=== PATIENT | male | born 1960 | race Caucasian/White ===

== ENCOUNTER 2021-08-17 16:29 | Inpatient (IN) | payer OTHER ==
--- NOTE | 2021-08-17 17:10 | ED ---
General Adult HPI - General Chief complaint: Nausea/Vomiting/Diarrhea Stated complaint: abd pain Time Seen by Provider: 08/17/21 17:08 Source: patient, EMS Mode of arrival: EMS Limitations: no limitations - History of Present Illness Initial comments: Patient presents to the ED by ambulance for evaluation with his at bedside. Patient states that he has had superpubic/left lower quadrant abdominal pain since this morning. Patient states that his pain was increasing in severity until the ambulance arrived, and he states that his pain has subsided since then. Patient denies receiving any medications by EMS. Patient also states that he has felt nauseated today, and he states that he vomited once prior to coming to the ED today. Patient also states that he feels "bloated". Patient denies trauma or injury, fever or chills, headache, focal neuro deficit, chest pain or pressure, dyspnea, cough or cold symptoms, dizziness, upper abdominal pain, back or flank pain, diarrhea or constipation (patient states that he had a normal BM earlier today), bloody or melanotic stool, dysuria/hematuria/urinary frequency/urinary symptoms, or any other symptoms or complaints. Patient states that his pain is currently 3/10 in severity, and he declines pain medication at this time. - Related Data Allergies Allergy/AdvReac Type Severity Reaction Status Date / Time niacin Allergy Anaphylaxis Verified 08/17/21 18:05 codeine AdvReac Abdominal Verified 08/17/21 18:05 Pain Review of Systems ROS Statement: Those systems with pertinent positive or pertinent negative responses have been documented in the HPI. ROS Other: All systems not noted in ROS Statement are negative. Past Medical History Past Medical History: Cancer Additional Past Medical History / Comment(s): HTN, Sleep apnea, CLL History of Any Multi-Drug Resistant Organisms: None Reported Past Surgical History: Back Surgery Additional Past Surgical History / Comment(s): 2013 herniated disc repair. Past Psychological History: PTSD Smoking Status: Never smoker Past Alcohol Use History: None Reported Past Drug Use History: None Reported General Exam Limitations: no limitations General appearance: alert, in no apparent distress Head exam: Present: atraumatic, normocephalic Eye exam: Present: normal appearance, EOMI ENT exam: Present: mucous membranes moist Neck exam: Present: other (Trachea is in midline) Respiratory exam: Present: normal lung sounds bilaterally. Absent: respiratory distress, wheezes, rales, rhonchi, stridor Cardiovascular Exam: Present: regular rate, normal rhythm, normal heart sounds, other (Normal radial pulses bilaterally) GI/Abdominal exam: Present: soft, hypoactive bowel sounds, other (Mild left lower quadrant abdominal tenderness; mildly distended abdomen). Absent: guarding, rebound Extremities exam: Absent: pedal edema Back exam: Absent: CVA tenderness (R), CVA tenderness (L) Neurological exam: Present: alert, oriented X3. Absent: motor sensory deficit Psychiatric exam: Present: normal affect, normal mood Skin exam: Present: warm, dry, intact, normal color Course Vital Signs 08/17/21 08/17/21 16:30 19:48 Temperature 98.5 F Pulse Rate 77 85 Respiratory 18 18 Rate Blood Pressure 144/78 163/87 O2 Sat by Pulse 98 97 Oximetry - Reevaluation(s) Reevaluation #1: 08/17/21 20:12 Case, H&P, test results and ED management thus far were discussed with Dr. Song. He accepts hospital admission. He agrees with general surgery consultation. He has no further recommendations at this time. 08/17/21 20:19 Patient denies development of any new symptoms while in the ED. Patient has not had any vomiting while in the ED. Patient's abdomen remains soft and nonsurgical on examination. Patient and are aware the patient's test results, and they both agree with hospital admission at this time. EKG Findings - EKG Comments: EKG Findings:: Normal sinus rhythm, ventricular rate of 68 bpm, no ectopy, left anterior fascicular block, normal FL and QRS intervals, normal QT interval, anteroseptal ST and T-wave abnormality, normal axis, no old EKG is available for comparison Medical Decision Making - Medical Decision Making Given the patient's CT finding of ileus versus partial mechanical obstruction, will admit the patient to the hospital for observation and further evaluation. Patient has a soft and nonsurgical abdominal exam in the ED. Patient has a leukocytosis of 20.6. Patient reports having CLL, and I am uncertain if his leukocytosis is from an acute etiology. Patient is afebrile. Dr. Song has accepted hospital admission. A general surgery consultation order has been placed. - Lab Data Result diagrams: 08/17/21 18:18 08/17/21 18:18 Lab Results 08/17/21 08/17/21 08/17/21 Range/Units 18:18 18:18 18:18 WBC 20.6 H (3.8-10.6) k/uL RBC 5.12 (4.30-5.90) m/uL Hgb 16.6 (13.0-17.5) gm/dL Hct 48.9 (39.0-53.0) % MCV 95.5 (80.0-100.0) fL MCH 32.3 (25.0-35.0) pg MCHC 33.8 (31.0-37.0) g/dL RDW 13.8 (11.5-15.5) % Plt Count 310 (150-450) k/uL MPV 7.5 Neutrophils % 73 % Lymphocytes % 24 % Monocytes % 2 % Eosinophils % 0 % Basophils % 0 % Neutrophils # 15.0 H (1.3-7.7) k/uL Lymphocytes # 4.9 H (1.0-4.8) k/uL Monocytes # 0.4 (0-1.0) k/uL Eosinophils # 0.1 (0-0.7) k/uL Basophils # 0.0 (0-0.2) k/uL Sodium 139 (137-145) mmol/L Potassium 4.8 (3.5-5.1) mmol/L Chloride 106 (98-107) mmol/L Carbon Dioxide 21 L (22-30) mmol/L Anion Gap 12 mmol/L BUN 21 H (9-20) mg/dL Creatinine 1.02 (0.66-1.25) mg/dL Est GFR (CKD-EPI)AfAm >90 (>60 ml/min/1.73 sqM) Est GFR (CKD-EPI)NonAf 79 (>60 ml/min/1.73 sqM) Glucose 121 H (74-99) mg/dL Plasma Lactic Acid Sree 1.6 (0.7-2.0) mmol/L Calcium 9.6 (8.4-10.2) mg/dL Total Bilirubin 0.9 (0.2-1.3) mg/dL AST 40 (17-59) U/L ALT 46 (4-49) U/L Alkaline Phosphatase 91 (38-126) U/L Troponin I (0.000-0.034) ng/mL Total Protein 7.5 (6.3-8.2) g/dL Albumin 4.6 (3.5-5.0) g/dL Lipase 215 (23-300) U/L Urine Color Urine Appearance (Clear) Urine pH (5.0-8.0) Ur Specific [place] (1.001-1.035) Urine Protein (Negative) Urine Glucose (UA) (Negative) Urine Ketones (Negative) Urine Blood (Negative) Urine Nitrite (Negative) Urine Bilirubin (Negative) Urine Urobilinogen (<2.0) mg/dL Ur Leukocyte Esterase (Negative) 08/17/21 08/17/21 Range/Units 18:18 19:47 WBC (3.8-10.6) k/uL RBC (4.30-5.90) m/uL Hgb (13.0-17.5) gm/dL Hct (39.0-53.0) % MCV (80.0-100.0) fL MCH (25.0-35.0) pg MCHC (31.0-37.0) g/dL RDW (11.5-15.5) % Plt Count (150-450) k/uL MPV Neutrophils % % Lymphocytes % % Monocytes % % Eosinophils % % Basophils % % Neutrophils # (1.3-7.7) k/uL Lymphocytes # (1.0-4.8) k/uL Monocytes # (0-1.0) k/uL Eosinophils # (0-0.7) k/uL Basophils # (0-0.2) k/uL Sodium (137-145) mmol/L Potassium (3.5-5.1) mmol/L Chloride (98-107) mmol/L Carbon Dioxide (22-30) mmol/L Anion Gap mmol/L BUN (9-20) mg/dL Creatinine (0.66-1.25) mg/dL Est GFR (CKD-EPI)AfAm (>60 ml/min/1.73 sqM) Est GFR (CKD-EPI)NonAf (>60 ml/min/1.73 sqM) Glucose (74-99) mg/dL Plasma Lactic Acid Sree (0.7-2.0) mmol/L Calcium (8.4-10.2) mg/dL Total Bilirubin (0.2-1.3) mg/dL AST (17-59) U/L ALT (4-49) U/L Alkaline Phosphatase (38-126) U/L Troponin I <0.012 (0.000-0.034) ng/mL Total Protein (6.3-8.2) g/dL Albumin (3.5-5.0) g/dL Lipase (23-300) U/L Urine Color Yellow Urine Appearance Clear (Clear) Urine pH 6.5 (5.0-8.0) Ur Specific [place] 1.030 (1.001-1.035) Urine Protein Trace H (Negative) Urine Glucose (UA) Negative (Negative) Urine Ketones Negative (Negative) Urine Blood Negative (Negative) Urine Nitrite Negative (Negative) Urine Bilirubin Negative (Negative) Urine Urobilinogen <2.0 (<2.0) mg/dL Ur Leukocyte Esterase Negative (Negative) - Radiology Data CT abdomen/pelvis with IV contrast: Dilated small bowel suggestive of ileus or partial mechanical obstruction. No free air. Disposition Clinical Impression: Abdominal pain, Nausea and vomiting Narrative: Small bowel obstruction vs. ileus Disposition: ADMITTED IP TO THIS HOSP Condition: Stable Is patient prescribed a controlled substance at d/c from ED?: No Referrals: [facility],Clinic [Primary Care Provider] - 1-2 days Time of Disposition: 20:13
[2021-08-17] MEDS ORDERED: ONDANSETRON 4 MG/2 ML VIAL IVP STA (17:17)
[2021-08-17] MEDS ORDERED: SODIUM CHLORIDE 0.9% 1,000 ML IV STA (17:17)
[2021-08-17 18:30] LABS: Basophils % (A) 0 %; Eosinophils # (A) 0.1 k/uL (0-0.7); Eosinophils % (A) 0 %; HCT 48.9 % (39.0-53.0); HGB 16.6 gm/dL (13.0-17.5); Lymphocytes # (A) 4.9 k/uL (1.0-4.8); Lymphocytes % (A) 24 %; MCH 32.3 pg (25.0-35.0); MCHC 33.8 g/dL (31.0-37.0); MCV 95.5 fL (80.0-100.0); Mean Platelet Volume 7.5; Monocytes # (A) 0.4 k/uL (0-1.0); Monocytes % (A) 2 %; Neutrophils % (A) 73 %; Platelet Count 310 k/uL (150-450); RBC 5.12 m/uL (4.30-5.90); RDW 13.8 % (11.5-15.5); WBC 20.6 k/uL (3.8-10.6)
[2021-08-17 18:41] LABS: ALT 46 U/L (4-49); AST 40 U/L (17-59); African American GFR (CKD) >90 (>60 ml/min/1.73 sqM); Albumin 4.6 g/dL (3.5-5.0); Alkaline Phosphatase 91 U/L (38-126); Anion Gap 12 mmol/L; Blood Urea Nitrogen 21 mg/dL (9-20); Calcium 9.6 mg/dL (8.4-10.2); Carbon Dioxide 21 mmol/L (22-30); Chloride 106 mmol/L (98-107); Glucose 121 mg/dL (74-99); Lipase 215 U/L (23-300); Non-African American GFR(CKD) 79 (>60 ml/min/1.73 sqM); Sodium 139 mmol/L (137-145); Total Bilirubin 0.9 mg/dL (0.2-1.3); Total Protein 7.5 g/dL (6.3-8.2)
[2021-08-17 18:47] LABS: Potassium 4.8 mmol/L (3.5-5.1)
[2021-08-17 19:56] LABS: Appearance,Urine Clear (Clear); Bilirubin,Urine Negative (Negative); Blood,Urine Negative (Negative); Color,Urine Yellow; Glucose,Urine (UA) Negative (Negative); Ketones,Urine Negative (Negative); Leukocyte Esterase,Urine Negative (Negative); Nitrite,Urine Negative (Negative); PH, Urine 6.5 (5.0-8.0); Protein,Urine Trace (Negative); Urobilinogen,Urine <2.0 mg/dL (<2.0)
--- NOTE | 2021-08-17 19:56 | CT ---
EXAMINATION TYPE: CT abdomen pelvis w con DATE OF EXAM: 08/17/2021 COMPARISON: None HISTORY: abdominal pain, vomiting CT DLP: 1914.8 mGycm Automated exposure control for dose reduction was used. CONTRAST: Performed with IV Contrast, patient injected with 100 mL of Isovue 300. Images obtained from the diaphragm to the floor the pelvis with IV contrast. There is mild subsegmental atelectasis at the posterior lung bases. Heart size is normal. There is no pericardial effusion. Liver spleen stomach pancreas, gallbladder appear intact. The bile duct are no t dilated. There is no adrenal mass. Kidneys show satisfactory contrast opacification. There is no hydronephrosi s. There is 1 cm cortical cyst anterior left kidney. Ureters are not dilated. There is no retroperito simona adenopathy. Bladder distends smoothly. There is no inguinal hernia. There is no free fluid in th e pelvis. There are multiple mildly dilated loops of fluid-filled small bowel in the mid abdomen. Distal small bowel is not dilated. Transition point not seen. There are a few sigmoid diverticula. There is no div erticulitis. Small bowel dilated up to 3.7 cm. There is no mesenteric edema. There is no ascites or free air. The lumbar vertebrae have normal alignment. There is no compression fracture. Posterior elements are intact. Bony pelvis is intact. Hip joints are intact. IMPRESSION: Dilated small bowel suggestive of ileus or partial mechanical obstruction. No free air.
[2021-08-17] MEDS ORDERED: MORPHINE SULFATE 4 MG/ML SYRINGE IV PRN (20:15)
[2021-08-17] MEDS ORDERED: NALOXONE 0.4 MG/ML 1 ML VIAL IV PRN (20:15)
[2021-08-17] MEDS ORDERED: ONDANSETRON 4 MG/2 ML VIAL IVP PRN (20:15)
[2021-08-17] MEDS: SODIUM CHLORIDE 0.9% 1,000 ML IV SCH (21:08)
--- NOTE | 2021-08-18 01:08 | P.HPIM ---
History of Present Illness H&P Date: 08/17/21 Chief Complaint: abd pain 60 year old male with hypertension , DM , CLL patient comes in due to sudden worsening in his subacute abd pain , that was going off / on mild discomfort over past couple weeks, denies any associated GI bleeding, urinary changes, hematuria , fever, chills, nausea or vomiting, however, today suddenly felt suprapubic pain that was getting worse, for which he notified EMS, upon their arrival he had his only vomiting episode. he denies any abd surgeries inthe past, denies any history of bowel obstructions, he does not take any opiates at home, he had anormal bowel movement today. patient gets regular colonoscopies, due to history of polyps. blood work in the ED showed elevated white count, otherwise unremarkable . CT abd showed ileus vs partial mechanical bowel obstruction admitted for further evaluation by general surgery Review of Systems Pertinent positives as noted in HPI. All other systems were reviewed and are negative Past Medical History Past Medical History: Cancer Additional Past Medical History / Comment(s): HTN, Sleep apnea, CLL History of Any Multi-Drug Resistant Organisms: None Reported Past Surgical History: Back Surgery Additional Past Surgical History / Comment(s): 2012 herniated disc repair. Past Psychological History: Panic Disorder, PTSD Smoking Status: Never smoker Past Alcohol Use History: None Reported Past Drug Use History: None Reported - Past Family History familyi Family Medical History: No Reported History Medications and Allergies Home Medications Medication Instructions Recorded Confirmed Type Ascorbic Acid [Vitamin C] 500 mg PO DAILY 08/17/21 08/17/21 History Aspirin EC [Ecotrin Low Dose] 81 mg PO DAILY 08/17/21 08/17/21 History Atorvastatin [Lipitor] 20 mg PO HS 08/17/21 08/17/21 History Cetirizine HCl 10 mg PO DAILY 08/17/21 08/17/21 History Cholecalciferol [Vitamin D3 (25 50 mcg PO DAILY 08/17/21 08/17/21 History Mcg = 1000 Iu)] Cyclobenzaprine [Flexeril] 10 mg PO DAILY PRN 08/17/21 08/17/21 History FLUoxetine HCL [PROzac] 20 mg PO DAILY 08/17/21 08/17/21 History Gabapentin [Neurontin] 400 mg PO QID PRN 08/17/21 08/17/21 History Levothyroxine Sodium [Synthroid] 150 mcg PO DAILY 08/17/21 08/17/21 History Losartan [Cozaar] 50 mg PO DAILY 08/17/21 08/17/21 History Multivitamins, Thera [Multivitamin 1 tab PO DAILY 08/17/21 08/17/21 History (formulary)] Naproxen 500 mg PO BID PRN 08/17/21 08/17/21 History Omeprazole 20 mg PO DAILY 08/17/21 08/17/21 History Terazosin [Hytrin] 4 mg PO HS 08/17/21 08/17/21 History Vardenafil HCl [Levitra] 20 mg PO DAILY PRN 08/17/21 08/17/21 History Vitamin B Complex 1 cap PO DAILY 08/17/21 08/17/21 History Zinc 50 mg PO DAILY 08/17/21 08/17/21 History diazePAM [Valium] 5 mg PO BID PRN 08/17/21 08/17/21 History Allergies Allergy/AdvReac Type Severity Reaction Status Date / Time niacin Allergy Anaphylaxis Verified 08/17/21 21:06 codeine AdvReac Abdominal Verified 08/17/21 21:06 Pain Physical Exam Vitals: Vital Signs Temp Pulse Pulse Resp BP BP Pulse Ox 08/17/21 22:19 98.2 F 74 16 170/89 96 08/17/21 21:50 82 16 161/81 98 08/17/21 19:48 85 18 163/87 97 08/17/21 16:30 98.5 F 77 18 144/78 98 Intake and Output 08/17/21 08/17/21 08/18/21 14:59 22:59 06:59 Other: Voiding Method Toilet Weight 120.202 kg Constitutional: No acute distress, conversant, pleasant Eyes: Anicteric sclerae, moist conjunctiva, Pupils equal round reactive to light ENMT: NC/AT Oropharynx clear, no erythema, or exudates Neck: Supple, FROM, no masses, or JVD No carotid bruits No thyromegaly Lungs: Clear to auscultation Clear to percussion Normal respiratory effort, no accessory muscle use Cardiovascular: Heart regular in rate and rhythm, No murmurs, gallops, or rubs No peripheral edema Abdominal: Soft Nontender, no guarding, rebound or rigidity Abdomen moving with respiration Normoactive bowel sounds No hepatomegaly, No splenomegaly No palpable mass No abdominal wall hernia noted Skin: Normal temperature, tone, texture, turgor No induration No subcutaneous nodules No rash, lesions No ulcers Extremities: No digital cyanosis No clubbing Pedal pulses intact and symmetrical Radial pulses intact and symmetrical No calf tenderness Psychiatric: Alert and oriented to person, place and time Appropriate affect fair judgement Neuro Muscles Strength 5/5 in all 4 extremities Sensation to light touch grossly present throughout Cranial nerves II-XII grossly intact No focal sensory deficits Lymphatics: no palpable cervical or supraclavicular , or inguinal lymph nodes Results CBC & Chem 7: 08/17/21 18:18 08/17/21 18:18 Labs: Abnormal Lab Results - Last 24 Hours (Table) 08/17/21 08/17/21 08/17/21 Range/Units 18:18 18:18 19:47 WBC 20.6 H (3.8-10.6) k/uL Neutrophils # 15.0 H (1.3-7.7) k/uL Lymphocytes # 4.9 H (1.0-4.8) k/uL Carbon Dioxide 21 L (22-30) mmol/L BUN 21 H (9-20) mg/dL Glucose 121 H (74-99) mg/dL Urine Protein Trace H (Negative) Thrombosis Risk Factor Assmnt - Choose All That Apply Each Factor Represents 1 point: Obesity (BMI >25) Other Risk Factors: Yes Each Risk Factor Represents 2 Points: Age 61-74 years Other congenital or acquired thrombophilia - If yes, enter type in comment: No Thrombosis Risk Factor Assessment Total Risk Factor Score: 3 Thrombosis Risk Factor Assessment Level: Moderate Risk Assessment and Plan Assessment: ileus , rule out bowel obstruction NPO monitor vital signs IVF hydration with normal saline general surgery consultation serial abd exam patient due to routine Cscope this year due to history of polyps chronic conditions hypertension hyperlipidemia CLL resume home meds full code DVT PPX heparin sc tid anticipated length of stay < 2 midnights
[2021-08-18] MEDS: LEVOTHYROXINE 75 MCG TAB PO SCH (05:23)
[2021-08-18] MEDS: SODIUM CHLORIDE 0.9% 1,000 ML IV SCH ×3 (05:23→22:58)
[2021-08-18] MEDS: HEPARIN SODIUM,PORCINE/PF 5,000 UNIT/0.5 ML SYRINGE SQ SCH ×3 (08:24→20:02)
[2021-08-18] MEDS: ASPIRIN 81 MG PO SCH (08:24)
[2021-08-18] MEDS: PANTOPRAZOLE 40 MG TABLET PO SCH (08:24)
[2021-08-18] MEDS: LOSARTAN 50 MG TAB PO SCH (08:25)
[2021-08-18] MEDS: FLUoxetine HCL 20 MG CAP PO SCH (08:25)
[2021-08-18 09:07] LABS: HCT 44.5 % (39.6-50.0); HGB 14.9 g/dL (13.0-17.0); MCH 31.2 pg (27.0-32.0); MCHC 33.5 g/dL (32.0-37.0); MCV 93.1 fL (80.0-97.0); Mean Platelet Volume 9.7 fL (9.5-12.2); NRBC Per 100 WBC 0 /100 WBCS (0.0-0.0); Platelet Count 288 X 10*3/uL (140-440); RBC 4.78 X 10*6/uL (4.40-5.60); RDW 13.5 % (11.5-14.5); WBC 21.53 X 10*3/uL (4.50-10.00)
[2021-08-18 09:18] LABS: African American GFR (CKD) 85.4 (60.0-200.0); Albumin 4.1 g/dL (3.8-4.9); Albumin/Globulin Ratio 2.14 (1.60-3.17); Anion Gap 11.9 mmol/L (10.00-18.00); BUN/Creat Ratio 12.5 Ratio (12.00-20.00); Blood Urea Nitrogen 13.5 mg/dL (9.0-27.0); Carbon Dioxide 22.5 mmol/L (20.0-27.5); Globulin 1.9 g/dL (1.6-3.3); Non-African American GFR(CKD) 73.7 (60.0-200.0); Potassium 4.6 mmol/L (3.5-5.5); Total Bilirubin 0.5 mg/dL (0.30-1.20)
[2021-08-18 09:40] LABS: Basophils # (A) 0.06 X 10*3/uL (0.00-0.10); Basophils % (A) 0.3 %; Eosinophils # (A) 0.04 X 10*3/uL (0.04-0.35); Eosinophils % (A) 0.2 %; Immature Grans, Automated 0.4 %; Lymphocytes # (A) 8.46 X 10*3/uL (0.90-5.00); Lymphocytes % (A) 39.3 %; Monocytes # (A) 1.44 X 10*3/uL (0.20-1.00); Monocytes % (A) 6.7 %; Neutrophils # (A) 11.45 X 10*3/uL (1.80-7.70); Neutrophils % (A) 53.1 %; RBC Morphology NORMAL
--- NOTE | 2021-08-18 11:51 | P.GSCN ---
History of Present Illness Consult date: 08/18/21 Reason for Consult: Abdominal pain, bloating, nausea and emesis, small bowel obstruction versus ileus. History of present illness: Patient is a 60-year-old gentleman brought to [facility] emergency department by EMS 08/17/2021 with chief complaints of an abrupt, less than 24- hour history of diffuse abdominal pain, bloating, and nausea with emesis that afternoon. He describes having had a normal to slightly loose bowel movement that morning. He hasn't had similar symptoms in the past. No history of abdominal surgery, he gets routine colonoscopies, most recently about 3 years ago that always seemed to yield some manner of colon polyps. He is due for a follow-up later this year. No known personal history of inflammatory bowel disease. He does have history of chronic lymphocytic leukemia and has a white blood cell count but tends to run around 14,000. He has not been maintained on any manner of treatment for blood dyscrasia, he follows with the hematology specialist field engineer for monitoring routinely. Known personal history of diabetes mellitus, he's not maintained on any manner of blood thinners. He denies symptoms of fever, chills, chest pain, shortness of breath, or orthostatic symptoms. Computed tomography scan of the abdomen and pelvis was obtained in the ER showing mild more or less uniform dilation of the small bowel without wall thickening or pneumatosis. There is some stool and air present throughout the colon. There is perfusion seen at the mesentery, no evidence of ventral or inguinal hernia, he may have a cord lipoma present on the right. Lower lung sandoval appear to be clear with the exception of some mild subsegmental atelectasis. Gallbladder is mildly distended without inflammatory change or radiopaque stone burden and and pancreas has a normal appearance. Urinalysis was negative for UTI. Laboratory studies showed a somewhat dramatic leukocytosis over 20,000 with a moderate left shift. Overnight his symptoms of abdominal pain bloating and nausea have moderately improved. He admits to flatus today and has had multiple loose bowel movements, starting to feel hungry. Review of Systems All systems: negative - Constitutional Reports as per HPI Past Medical History Past Medical History: Cancer Additional Past Medical History / Comment(s): HTN, Sleep apnea, CLL History of Any Multi-Drug Resistant Organisms: None Reported Past Surgical History: Back Surgery Additional Past Surgical History / Comment(s): 2012 herniated disc repair. Past Psychological History: Panic Disorder, PTSD Smoking Status: Never smoker Past Alcohol Use History: None Reported Past Drug Use History: None Reported - Past Family History familyi Family Medical History: No Reported History Medications and Allergies Home Medications Medication Instructions Recorded Confirmed Type Ascorbic Acid [Vitamin C] 500 mg PO DAILY 08/17/21 08/17/21 History Aspirin EC [Ecotrin Low Dose] 81 mg PO DAILY 08/17/21 08/17/21 History Atorvastatin [Lipitor] 20 mg PO HS 08/17/21 08/17/21 History Cetirizine HCl 10 mg PO DAILY 08/17/21 08/17/21 History Cholecalciferol [Vitamin D3 (25 50 mcg PO DAILY 08/17/21 08/17/21 History Mcg = 1000 Iu)] Cyclobenzaprine [Flexeril] 10 mg PO DAILY PRN 08/17/21 08/17/21 History FLUoxetine HCL [PROzac] 20 mg PO DAILY 08/17/21 08/17/21 History Gabapentin [Neurontin] 400 mg PO QID PRN 08/17/21 08/17/21 History Levothyroxine Sodium [Synthroid] 150 mcg PO DAILY 08/17/21 08/17/21 History Losartan [Cozaar] 50 mg PO DAILY 08/17/21 08/17/21 History Multivitamins, Thera [Multivitamin 1 tab PO DAILY 08/17/21 08/17/21 History (formulary)] Naproxen 500 mg PO BID PRN 08/17/21 08/17/21 History Omeprazole 20 mg PO DAILY 08/17/21 08/17/21 History Terazosin [Hytrin] 4 mg PO HS 08/17/21 08/17/21 History Vardenafil HCl [Levitra] 20 mg PO DAILY PRN 08/17/21 08/17/21 History Vitamin B Complex 1 cap PO DAILY 08/17/21 08/17/21 History Zinc 50 mg PO DAILY 08/17/21 08/17/21 History diazePAM [Valium] 5 mg PO BID PRN 08/17/21 08/17/21 History Allergies Allergy/AdvReac Type Severity Reaction Status Date / Time niacin Allergy Anaphylaxis Verified 08/17/21 21:06 codeine AdvReac Abdominal Verified 08/17/21 21:06 Pain Surgical - Exam Osteopathic Statement: *. No significant issues noted on an osteopathic structural exam other than those noted in the History and Physical/Consult. Vital Signs Temp Pulse Resp BP Pulse Ox 98.5 F 77 18 144/78 98 08/17/21 16:30 08/17/21 16:30 08/17/21 16:30 08/17/21 16:30 08/17/21 16:30 - General well developed, well nourished, no distress - Eyes PERRL, normal ocular movement - ENT normal pinna, normal nares, normal mucosa, no hearing loss, no congestion - Respiratory normal expansion, normal respiratory effort, clear to percussion - Cardiovascular Rhythm: regular - Abdomen Abdomen is soft, nontender to palpation, no guarding rebound or distention. No evidence of ventral or inguinal hernia seen. Abdomen: soft, non tender Results - Labs 08/18/21 05:33 08/18/21 05:33 Abnormal Lab Results - Last 24 Hours (Table) 08/17/21 08/17/21 08/17/21 Range/Units 18:18 18:18 19:47 WBC 20.6 H (3.8-10.6) k/uL Immature Gran # (0.00-0.04) X 10*3/uL Neutrophils # 15.0 H (1.3-7.7) k/uL Lymphocytes # 4.9 H (1.0-4.8) k/uL Monocytes # (0.20-1.00) X 10*3/uL Carbon Dioxide 21 L (22-30) mmol/L BUN 21 H (9-20) mg/dL Glucose 121 H (74-99) mg/dL Total Protein (6.2-8.2) g/dL Urine Protein Trace H (Negative) 08/18/21 08/18/21 Range/Units 05:33 05:33 WBC 21.53 H (3.8-10.6) k/uL Immature Gran # 0.08 H (0.00-0.04) X 10*3/uL Neutrophils # 11.45 H (1.3-7.7) k/uL Lymphocytes # 8.46 H (1.0-4.8) k/uL Monocytes # 1.44 H (0.20-1.00) X 10*3/uL Carbon Dioxide (22-30) mmol/L BUN (9-20) mg/dL Glucose 124 H (74-99) mg/dL Total Protein 6.0 L (6.2-8.2) g/dL Urine Protein (Negative) Diabetes panel 08/17/21 08/18/21 Range/Units 18:18 05:33 Sodium 139 141 (137-145) mmol/L Potassium 4.8 4.6 (3.5-5.1) mmol/L Chloride 106 106 (98-107) mmol/L Carbon Dioxide 21 L 22.5 (22-30) mmol/L BUN 21 H 13.5 (9-20) mg/dL Creatinine 1.02 1.1 (0.66-1.25) mg/dL Glucose 121 H 124 H (74-99) mg/dL Calcium 9.6 9.0 (8.4-10.2) mg/dL AST 40 20 (17-59) U/L ALT 46 40 (4-49) U/L Alkaline Phosphatase 91 83 (38-126) U/L Total Protein 7.5 6.0 L (6.3-8.2) g/dL Albumin 4.6 4.1 (3.5-5.0) g/dL Calcium panel 08/17/21 08/18/21 Range/Units 18:18 05:33 Calcium 9.6 9.0 (8.4-10.2) mg/dL Albumin 4.6 4.1 (3.5-5.0) g/dL Pituitary panel 08/17/21 08/18/21 Range/Units 18:18 05:33 Sodium 139 141 (137-145) mmol/L Potassium 4.8 4.6 (3.5-5.1) mmol/L Chloride 106 106 (98-107) mmol/L Carbon Dioxide 21 L 22.5 (22-30) mmol/L BUN 21 H 13.5 (9-20) mg/dL Creatinine 1.02 1.1 (0.66-1.25) mg/dL Glucose 121 H 124 H (74-99) mg/dL Calcium 9.6 9.0 (8.4-10.2) mg/dL Adrenal panel 08/17/21 08/18/21 Range/Units 18:18 05:33 Sodium 139 141 (137-145) mmol/L Potassium 4.8 4.6 (3.5-5.1) mmol/L Chloride 106 106 (98-107) mmol/L Carbon Dioxide 21 L 22.5 (22-30) mmol/L BUN 21 H 13.5 (9-20) mg/dL Creatinine 1.02 1.1 (0.66-1.25) mg/dL Glucose 121 H 124 H (74-99) mg/dL Calcium 9.6 9.0 (8.4-10.2) mg/dL Total Bilirubin 0.9 0.50 (0.2-1.3) mg/dL AST 40 20 (17-59) U/L ALT 46 40 (4-49) U/L Alkaline Phosphatase 91 83 (38-126) U/L Total Protein 7.5 6.0 L (6.3-8.2) g/dL Albumin 4.6 4.1 (3.5-5.0) g/dL Assessment and Plan Assessment: 60-year-old gentleman with acute nausea, vomiting, diffuse abdominal pain in the setting of a somewhat dramatic leukocytosis with absence of obvious infection on imaging. Urinalysis negative, lower lung sandoval as visualized on CT relatively clear. May relate to ileus in the setting of acute dehydration, partial distal small bowel obstruction, or infectious gastroenteritis. Clinically improving overnight with hydration and bowel rest. Abdominal exam today is entirely benign. History of chronic lymphocytic leukemia. Plan: Okay to advance to clear liquids as tolerated today. If he has issues with recurrent or worsening abdominal pain, distention or nausea will need to go back to nothing by mouth status with nasogastric decompression. No acute surgical indications for now, abdominal exam is benign, patient has a hemodynamically stable and afebrile appearance. Will follow. If he has no issues overnight he should be okay to advance to a regular diet tomorrow and discharge that afternoon if he continues to do well. Time with Patient: Greater than 30
[2021-08-18] MEDS ORDERED: GABAPENTIN 400 MG CAP PO PRN (15:27)
--- NOTE | 2021-08-18 15:30 | P.PN ---
Subjective Progress Note Date: 08/18/21 (delayed charting seen at 1115) Principal diagnosis: abdominal pain Patient is a 60-year-old male with hypertension, diabetes, and CLL who presented with abdominal pain. In the ER he underwent a CT abdomen and pelvis which showed ileus versus partial mechanical bowel obstruction. Patient seen and examined at bedside with present. He has no history of prior small bowel distractions. He reports that his pain is better with pain medications. And has moved from his left lower quadrant to his right lower quadrant today. He has had 2 bowel movements and has been passing small amounts of gas. He is feeling hungry. General: non toxic, no distress, appears at stated age, obese Derm: warm, dry Head: atraumatic, normocephalic, symmetric Eyes: EOMI, no lid lag, anicteric sclera Mouth: no lip lesion, mucus membranes moist Cardiovascular: S1S2 reg, no murmur, positive posterior tibial pulse bilateral, Lungs: Decreased breath sounds bilateral, no rhonchi, no rales , no accessory muscle use Abdominal: hypoactive bowel sounds, soft, nontender to palpation on examination, no guarding, no appreciable organomegaly Ext: no gross muscle atrophy, no edema, no contractures Neuro: CN II-XI grossly intact, no focal neuro deficits Psych: Alert, oriented, appropriate affect Ileus versus partial small bowel obstruction -Clear liquid diet -Consider bowel regiment of surgery in agreement -Discussed with surgery. Will re-eval in a.m. Leukocytosis with known CLL and -Likely above his baseline of 14 due to being reactive -Repeat CBC in a.m. Hypertension, controlled -Cozaar -Follow blood pressures Dyslipidemia -Statin GERD -PPI Hypothyroidism -Synthroid DVT prophylaxis: SCDs Discussed with: Patient, , nursing, Dr. Lee Anticipated discharge: In a.m. Anticipated discharge place: Home A total of 35 minutes was spent on the care of this complex patient more than 50% of the time was spent in counseling and care coordination. Objective - Vital Signs Vital signs: Vital Signs Temp 98.3 F 08/18/21 14:00 Pulse 69 08/18/21 14:00 Resp 16 08/18/21 14:00 BP 150/85 08/18/21 14:00 Pulse Ox 96 08/18/21 14:00 Intake & Output 08/17/21 08/18/21 08/18/21 18:59 06:59 18:59 Weight 120.202 kg 120.202 kg Other: Voiding Method Toilet # Voids 2 # Bowel Movements 1 1 - Labs CBC & Chem 7: 08/18/21 05:33 08/18/21 05:33 Labs: Abnormal Lab Results - Last 24 Hours (Table) 08/17/21 08/17/21 08/17/21 Range/Units 18:18 18:18 19:47 WBC 20.6 H (3.8-10.6) k/uL Immature Gran # (0.00-0.04) X 10*3/uL Neutrophils # 15.0 H (1.3-7.7) k/uL Lymphocytes # 4.9 H (1.0-4.8) k/uL Monocytes # (0.20-1.00) X 10*3/uL Carbon Dioxide 21 L (22-30) mmol/L BUN 21 H (9-20) mg/dL Glucose 121 H (74-99) mg/dL Total Protein (6.2-8.2) g/dL Urine Protein Trace H (Negative) 08/18/21 08/18/21 Range/Units 05:33 05:33 WBC 21.53 H (3.8-10.6) k/uL Immature Gran # 0.08 H (0.00-0.04) X 10*3/uL Neutrophils # 11.45 H (1.3-7.7) k/uL Lymphocytes # 8.46 H (1.0-4.8) k/uL Monocytes # 1.44 H (0.20-1.00) X 10*3/uL Carbon Dioxide (22-30) mmol/L BUN (9-20) mg/dL Glucose 124 H (74-99) mg/dL Total Protein 6.0 L (6.2-8.2) g/dL Urine Protein (Negative)
[2021-08-18] MEDS ORDERED: ATORVASTATIN 20 MG TAB PO SCH (21:00)
[2021-08-18] MEDS ORDERED: DOXAZOSIN 4 MG TAB PO SCH (21:00)
[2021-08-19 05:27] LABS: HCT 45.5 % (39.0-53.0); HGB 14.8 gm/dL (13.0-17.5); MCH 31.6 pg (25.0-35.0); MCHC 32.5 g/dL (31.0-37.0); MCV 97.4 fL (80.0-100.0); Mean Platelet Volume 7.2; Platelet Count 272 k/uL (150-450); RBC 4.68 m/uL (4.30-5.90); RDW 13.8 % (11.5-15.5); WBC 11.6 k/uL (3.8-10.6)
[2021-08-19 05:37] LABS: African American GFR (CKD) 80 (>60 ml/min/1.73 sqM); Anion Gap 6 mmol/L; Blood Urea Nitrogen 12 mg/dL (9-20); Calcium 8.8 mg/dL (8.4-10.2); Carbon Dioxide 25 mmol/L (22-30); Chloride 108 mmol/L (98-107); Glucose 102 mg/dL (74-99); Non-African American GFR(CKD) 69 (>60 ml/min/1.73 sqM); Potassium 4.1 mmol/L (3.5-5.1); Sodium 139 mmol/L (137-145)
[2021-08-19] MEDS: LEVOTHYROXINE 75 MCG TAB PO SCH (05:41)
[2021-08-19] MEDS: HEPARIN SODIUM,PORCINE/PF 5,000 UNIT/0.5 ML SYRINGE SQ SCH (08:37)
[2021-08-19] MEDS: FLUoxetine HCL 20 MG CAP PO SCH (08:37)
[2021-08-19] MEDS: ASPIRIN 81 MG PO SCH (08:37)
[2021-08-19] MEDS: LOSARTAN 50 MG TAB PO SCH (08:37)
[2021-08-19] MEDS: PANTOPRAZOLE 40 MG TABLET PO SCH (08:37)
[2021-08-19] MEDS ORDERED: LORATADINE 10 MG TAB PO SCH (09:00)
[2021-08-19 11:08] VITALS: BP 146/84; PULSE 70; RESP 18; TEMP 97.9
--- NOTE | 2021-08-19 11:24 | P.PN ---
Subjective Progress Note Date: 08/19/21 Principal diagnosis: Ileus versus obstruction Patient seen and examined at bedside, feeling better today than yesterday. Abdominal pain and distention at subsided. No reported nausea or emesis, he admits to loose bowel movement overnight without signs of bleeding. Positive flatus. As tolerated clear liquids, feeling hungry. Discharge is pending for today. Objective - Vital Signs Vital signs: Vital Signs Temp 97.9 F 08/19/21 08:00 Pulse 70 08/19/21 08:00 Resp 18 08/19/21 08:00 BP 146/84 08/19/21 08:00 Pulse Ox 95 08/19/21 08:00 Intake & Output 08/18/21 08/19/21 08/19/21 18:59 06:59 18:59 Other: # Voids 3 # Bowel Movements 1 1 - Constitutional General appearance: Present: average body habitus, cooperative, obese - EENT Eyes: Present: PERRLA - Respiratory Respiratory: bilateral: CTA - Cardiovascular Rhythm: regular - Gastrointestinal Gastrointestinal Comment(s): Abdomen is soft, nontender to palpation, no guarding rebound or distention. - Neurologic Neurologic: Present: CNII-XII intact - Psychiatric Psychiatric: Present: A&O x's 3, appropriate affect, intact judgment & insight - Labs CBC & Chem 7: 08/19/21 04:54 08/19/21 04:54 Labs: Abnormal Lab Results - Last 24 Hours (Table) 08/19/21 08/19/21 Range/Units 04:54 04:54 WBC 11.6 H (3.8-10.6) k/uL Chloride 108 H (98-107) mmol/L Glucose 102 H (74-99) mg/dL Assessment and Plan Assessment: 60-year-old gentleman with acute nausea, vomiting, diffuse abdominal pain in the setting of a somewhat dramatic presenting leukocytosis with absence of obvious infection on imaging. Urinalysis negative, lower lung sandoval as visualized on CT relatively clear. Suspect presenting symptoms relate to ileus in the setting of acute dehydration or infectious gastroenteritis. Clinically resolving with hydration and bowel rest. Abdominal exam today is entirely benign. History of chronic lymphocytic leukemia. Plan: (Soft diet, okay for discharge home from a surgical standpoint. Follow-up with primary care within 1 week. Time with Patient: Less than 30
[2021-08-19 12:41] VITALS: BMI 36.9
--- NOTE | 2021-08-19 14:15 | P.DS ---
Providers Date of admission: 08/17/21 20:16 Expected date of discharge: 08/19/21 Attending physician: Zia Song MD Consults: 08/17/21 20:16 Consult Physician Urgent Consulting Provider: Brian Lee Consult Reason/Comments: Abdominal pain, nausea, ileus versus small bowel obstruction Do you want consulting provider notified?: Yes Primary care physician: [facility] Hospital Course: Ileus versus partial small bowel obstruction Leukocytosis with known CLL Hypertension, controlled Dyslipidemia GERD Hypothyroidism Patient is a 60-year-old male with hypertension, diabetes, and CLL who presented with abdominal pain. In the ER he underwent a CT abdomen and pelvis which showed ileus versus partial mechanical bowel obstruction. Surgery was consulted, and patient managed medically without need for operation. He was able to tolerate a diet and had been passing gas. Assessment: Gen: awake, alert HEENT: normocephalic, atraumatic, good hearing acuity, moist mucous membranes Resp: good air exchange, breathing comfortably with no accessory muscle use CVS: good distal perfusion x 4, GI: soft, NTTP, ND : no SPT, no CVAT, calvillo catheter not present MSK: no pitting edema, no clubbing Neuro: non-focal, moving all extremities Psych: cooperative, euthymic mood Patient Condition at Discharge: Good Plan - Discharge Summary Discharge Rx Participant: No New Discharge Prescriptions: Continue Naproxen 500 mg PO BID PRN PRN Reason: Pain Losartan [Cozaar] 50 mg PO DAILY Cholecalciferol [Vitamin D3 (25 Mcg = 1000 Iu)] 50 mcg PO DAILY Cetirizine HCl 10 mg PO DAILY FLUoxetine HCL [PROzac] 20 mg PO DAILY Atorvastatin [Lipitor] 20 mg PO HS Gabapentin [Neurontin] 400 mg PO QID PRN PRN Reason: Pain Terazosin [Hytrin] 4 mg PO HS Omeprazole 20 mg PO DAILY diazePAM [Valium] 5 mg PO BID PRN PRN Reason: Anxiety Cyclobenzaprine [Flexeril] 10 mg PO DAILY PRN PRN Reason: Muscle Pain Zinc 50 mg PO DAILY Vitamin B Complex 1 cap PO DAILY Multivitamins, Thera [Multivitamin (formulary)] 1 tab PO DAILY Aspirin EC [Ecotrin Low Dose] 81 mg PO DAILY Ascorbic Acid [Vitamin C] 500 mg PO DAILY Levothyroxine Sodium [Synthroid] 150 mcg PO DAILY Vardenafil HCl [Levitra] 20 mg PO DAILY PRN PRN Reason: E.D. Discharge Medication List Ascorbic Acid [Vitamin C] 500 mg PO DAILY 08/17/21 [History] Aspirin EC [Ecotrin Low Dose] 81 mg PO DAILY 08/17/21 [History] Atorvastatin [Lipitor] 20 mg PO HS 08/17/21 [History] Cetirizine HCl 10 mg PO DAILY 08/17/21 [History] Cholecalciferol [Vitamin D3 (25 Mcg = 1000 Iu)] 50 mcg PO DAILY 08/17/21 [History] Cyclobenzaprine [Flexeril] 10 mg PO DAILY PRN 08/17/21 [History] FLUoxetine HCL [PROzac] 20 mg PO DAILY 08/17/21 [History] Gabapentin [Neurontin] 400 mg PO QID PRN 08/17/21 [History] Levothyroxine Sodium [Synthroid] 150 mcg PO DAILY 08/17/21 [History] Losartan [Cozaar] 50 mg PO DAILY 08/17/21 [History] Multivitamins, Thera [Multivitamin (formulary)] 1 tab PO DAILY 08/17/21 [History ] Naproxen 500 mg PO BID PRN 08/17/21 [History] Omeprazole 20 mg PO DAILY 08/17/21 [History] Terazosin [Hytrin] 4 mg PO HS 08/17/21 [History] Vardenafil HCl [Levitra] 20 mg PO DAILY PRN 08/17/21 [History] Vitamin B Complex 1 cap PO DAILY 08/17/21 [History] Zinc 50 mg PO DAILY 08/17/21 [History] diazePAM [Valium] 5 mg PO BID PRN 08/17/21 [History] Follow up Appointment(s)/Referral(s): [facility] [place] [Primary Care Provider] - 1-2 days (office not answering Please call to schedule appointment ) Patient Instructions/Handouts: Ileus (DC) Discharge Disposition: HOME SELF-CARE
== END 2021-08-19 14:16 | disposition home or self-care (01) | DRG 389 ==
LOC: EC 16:29 → 4SSUR 20:16
PROVIDERS: ADMIT Internal Medicine; ATTEND Internal Medicine
DX: K56.609 Unspecified intestinal obstruction, unspecified as to partial versus complete obstruction (principal); C91.10 Chronic lymphocytic leukemia of B-cell type not having achieved remission; K56.7 Ileus, unspecified; E03.9 Hypothyroidism, unspecified; E11.9 Type 2 diabetes mellitus without complications; E78.5 Hyperlipidemia, unspecified; E86.0 Dehydration; Z20.822 Contact with and (suspected) exposure to COVID-19; F41.0 Panic disorder [episodic paroxysmal anxiety]; F43.10 Post-traumatic stress disorder, unspecified; I10 Essential (primary) hypertension; K21.9 Gastro-esophageal reflux disease without esophagitis; Z79.82 Long term (current) use of aspirin; Z79.890 Hormone replacement therapy; Z79.899 Other long term (current) drug therapy; Z86.010 Personal history of colon polyps
CPT/HCPCS: 36415; 74177; 80048; 80053; 81003; 83605; 83690; 83735; 84484; 85025; 85027; 87635; 93005; 96361; 96374; 99285

== ENCOUNTER 2021-09-18 09:17 | Inpatient (IN) | payer OTHER ==
[2021-09-18] MEDS ORDERED: MORPHINE SULFATE 4 MG/ML SYRINGE IVP STA (09:52)
[2021-09-18] MEDS ORDERED: ONDANSETRON 4 MG/2 ML VIAL IVP STA (09:53)
[2021-09-18 10:10] LABS: Basophils # (A) 0.1 k/uL (0-0.2); Basophils % (A) 0 %; Eosinophils # (A) 0.2 k/uL (0-0.7); Eosinophils % (A) 1 %; HCT 47.2 % (39.0-53.0); HGB 15.6 gm/dL (13.0-17.5); Lymphocytes # (A) 5.8 k/uL (1.0-4.8); Lymphocytes % (A) 27 %; MCH 31.5 pg (25.0-35.0); MCHC 33.1 g/dL (31.0-37.0); MCV 95.4 fL (80.0-100.0); Mean Platelet Volume 7.3; Monocytes % (A) 5 %; Neutrophils # (A) 14.5 k/uL (1.3-7.7); Neutrophils % (A) 67 %; Platelet Count 287 k/uL (150-450); RBC 4.95 m/uL (4.30-5.90); RDW 13.1 % (11.5-15.5); WBC 21.7 k/uL (3.8-10.6)
[2021-09-18 10:22] LABS: INR 0.9 (<1.2); Partial Thromboplastin Time 23.1 sec (22.0-30.0); Prothrombin Time 9.9 sec (9.0-12.0)
[2021-09-18 10:30] LABS: RBC Morphology Normal
[2021-09-18 10:33] LABS: Potassium 4.2 mmol/L (3.5-5.1)
[2021-09-18 10:34] LABS: Albumin 4.2 g/dL (3.5-5.0); Calcium 9.1 mg/dL (8.4-10.2); Magnesium 1.9 mg/dL (1.6-2.3); Total Bilirubin 0.5 mg/dL (0.2-1.3); Total Protein 6.9 g/dL (6.3-8.2)
--- NOTE | 2021-09-18 10:37 | XR ---
EXAMINATION TYPE: XR chest 2V DATE OF EXAM: 09/18/2021 COMPARISON: None available HISTORY: 61-year-old male, chest pain TECHNIQUE: Frontal and lateral views of the chest are obtained. FINDINGS: Unremarkable lungs. No pleural effusion or pneumothorax. No cardiomegaly. Degenerative changes of the thoracic spine. IMPRESSION: No significant pulmonary abnormality identified.
--- NOTE | 2021-09-18 11:15 | ED ---
General Adult HPI - General Chief complaint: Chest Pain Stated complaint: chest pain Source: patient, EMS Mode of arrival: EMS Limitations: no limitations - History of Present Illness Initial comments: 61-year-old male with past medical history of CLL, hypertension presents emerg ency department with chest pain. Patient reports that he has had a cough and chest pain for the past 3 days. Located substernally with radiation to his bilateral shoulders. Denies productive cough. No sick contacts. No fevers. He has no previous history of cardiac disease. He went to an urgent care who recommended that he be transferred to the emergency department for further evaluation. He was transported via EMS. Given 324 mg of chewable aspirin and 2 nitro. Denies any improvement in his symptoms. Patient denies that this is abdominal pain. No associated nausea or vomiting. Patient was hospitalized one month ago for small bowel obstruction. Reports that he never followed up with the surgeon as it was reported to him that he did not require this. Patient denies any back or leg pain. no other alleviating, precipitating or modifying factors - Related Data Home Medications Medication Instructions Recorded Confirmed Ascorbic Acid [Vitamin C] 500 mg PO DAILY 08/17/21 09/18/21 Aspirin EC [Ecotrin Low Dose] 81 mg PO DAILY 08/17/21 09/18/21 Atorvastatin [Lipitor] 20 mg PO HS 08/17/21 09/18/21 Cetirizine HCl 10 mg PO DAILY 08/17/21 09/18/21 Cholecalciferol [Vitamin D3 (25 50 mcg PO DAILY 08/17/21 09/18/21 Mcg = 1000 Iu)] Cyclobenzaprine [Flexeril] 10 mg PO DAILY PRN 08/17/21 09/18/21 FLUoxetine HCL [PROzac] 40 mg PO DAILY 08/17/21 09/18/21 Gabapentin [Neurontin] 400 mg PO QID 08/17/21 09/18/21 Levothyroxine Sodium [Synthroid] 150 mcg PO DAILY 08/17/21 09/18/21 Losartan [Cozaar] 50 mg PO DAILY 08/17/21 09/18/21 Naproxen 500 mg PO BID PRN 08/17/21 09/18/21 Omeprazole 20 mg PO DAILY 08/17/21 09/18/21 Terazosin [Hytrin] 4 mg PO HS 08/17/21 09/18/21 Vardenafil HCl [Levitra] 20 mg PO DAILY PRN 08/17/21 09/18/21 Vitamin B Complex 1 cap PO DAILY 08/17/21 09/18/21 Zinc 50 mg PO DAILY 08/17/21 09/18/21 diazePAM [Valium] 5 mg PO BID PRN 08/17/21 09/18/21 Carboxymethylcellulose Sodium 1 drop BOTH EYES QID 09/18/21 09/18/21 [Thera Tears] Meclizine [Antivert] 25 mg PO BID PRN 09/18/21 09/18/21 Tadalafil [Cialis] 5 mg PO DAILY 09/18/21 09/18/21 Allergies Allergy/AdvReac Type Severity Reaction Status Date / Time niacin Allergy Anaphylaxis Verified 09/18/21 11:05 codeine AdvReac Abdominal Verified 09/18/21 11:05 Pain Review of Systems ROS Statement: Those systems with pertinent positive or pertinent negative responses have been documented in the HPI. ROS Other: All systems not noted in ROS Statement are negative. Past Medical History Past Medical History: Cancer Additional Past Medical History / Comment(s): HTN, Sleep apnea, CLL History of Any Multi-Drug Resistant Organisms: None Reported Past Surgical History: Back Surgery Additional Past Surgical History / Comment(s): 2012 herniated disc repair. 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 HI interval 153. QRS 112. QTC 399. Q-wave in lead [address] segment elevations. EKG at 1017 demonstrates sinus bradycardia with a rate of 58. HI interval 156. QRS 110. QTC 395. No acute ST segment elevations or depressions concerning for ischemic changes. Medical Decision Making - Medical Decision Making On arrival patient was placed into room 7. A thorough history and physical exam was performed. IV access was established laboratory studies were conducted. Patient was given 4 mg of morphine and 4 mg of Zofran for pain. Laboratory studies were conducted which demonstrated a white count of 21.7. Covid not detected. Patient sent for a CT of his abdomen and pelvis due to elevated white blood cell count. CT of the chest demonstrates no acute PE or infiltrate. CT abdomen and pelvis demonstrates mild acute inflammatory changes seen in the r ight upper quadrant cerumen the gastric duodenal junction as well as the gallbladder. Blood cultures obtained and the patient is initiated on Zosyn. I did call and speak with Dr. Vital in regards to the patient's symptoms that they never followed up Dr. Lee in the outpatient setting. Dr. tinsley does agree to consult on the patient. He will be admitted to some physicians. Spoke with Filipe who agreed to admit the patient. Patient remained in stable condition awaiting a bed - Lab Data Result diagrams: 09/18/21 09:52 09/18/21 09:52 Lab Results 09/18/21 09/18/21 09/18/21 Range/Units 09:52 09:52 09:52 WBC 21.7 H (3.8-10.6) k/uL RBC 4.95 (4.30-5.90) m/uL Hgb 15.6 (13.0-17.5) gm/dL Hct 47.2 (39.0-53.0) % MCV 95.4 (80.0-100.0) fL MCH 31.5 (25.0-35.0) pg MCHC 33.1 (31.0-37.0) g/dL RDW 13.1 (11.5-15.5) % Plt Count 287 (150-450) k/uL MPV 7.3 Neutrophils % 67 % Lymphocytes % 27 % Monocytes % 5 % Eosinophils % 1 % Basophils % 0 % Neutrophils # 14.5 H (1.3-7.7) k/uL Lymphocytes # 5.8 H (1.0-4.8) k/uL Monocytes # 1.0 (0-1.0) k/uL Eosinophils # 0.2 (0-0.7) k/uL Basophils # 0.1 (0-0.2) k/uL Manual Slide Review Performed RBC Morphology Normal PT 9.9 (9.0-12.0) sec INR 0.9 (<1.2) APTT 23.1 (22.0-30.0) sec Sodium 136 L (137-145) mmol/L Potassium 4.2 (3.5-5.1) mmol/L Chloride 104 (98-107) mmol/L Carbon Dioxide 24 (22-30) mmol/L Anion Gap 8 mmol/L BUN 12 (9-20) mg/dL Creatinine 1.06 (0.66-1.25) mg/dL Est GFR (CKD-EPI)AfAm 87 (>60 ml/min/1.73 sqM) Est GFR (CKD-EPI)NonAf 75 (>60 ml/min/1.73 sqM) Glucose 147 H (74-99) mg/dL Calcium 9.1 (8.4-10.2) mg/dL Magnesium 1.9 (1.6-2.3) mg/dL Total Bilirubin 0.5 (0.2-1.3) mg/dL AST 35 (17-59) U/L ALT 52 H (4-49) U/L Alkaline Phosphatase 99 (38-126) U/L Troponin I (0.000-0.034) ng/mL NT-Pro-B Natriuret Pep pg/mL Total Protein 6.9 (6.3-8.2) g/dL Albumin 4.2 (3.5-5.0) g/dL Lipase 223 (23-300) U/L 09/18/21 09/18/21 Range/Units 09:52 09:52 WBC (3.8-10.6) k/uL RBC (4.30-5.90) m/uL Hgb (13.0-17.5) gm/dL Hct (39.0-53.0) % MCV (80.0-100.0) fL MCH (25.0-35.0) pg MCHC (31.0-37.0) g/dL RDW (11.5-15.5) % Plt Count (150-450) k/uL MPV Neutrophils % % Lymphocytes % % Monocytes % % Eosinophils % % Basophils % % Neutrophils # (1.3-7.7) k/uL Lymphocytes # (1.0-4.8) k/uL Monocytes # (0-1.0) k/uL Eosinophils # (0-0.7) k/uL Basophils # (0-0.2) k/uL Manual Slide Review RBC Morphology PT (9.0-12.0) sec INR (<1.2) APTT (22.0-30.0) sec Sodium (137-145) mmol/L Potassium (3.5-5.1) mmol/L Chloride (98-107) mmol/L Carbon Dioxide (22-30) mmol/L Anion Gap mmol/L BUN (9-20) mg/dL Creatinine (0.66-1.25) mg/dL Est GFR (CKD-EPI)AfAm (>60 ml/min/1.73 sqM) Est GFR (CKD-EPI)NonAf (>60 ml/min/1.73 sqM) Glucose (74-99) mg/dL Calcium (8.4-10.2) mg/dL Magnesium (1.6-2.3) mg/dL Total Bilirubin (0.2-1.3) mg/dL AST (17-59) U/L ALT (4-49) U/L Alkaline Phosphatase (38-126) U/L Troponin I <0.012 (0.000-0.034) ng/mL NT-Pro-B Natriuret Pep 96 pg/mL Total Protein (6.3-8.2) g/dL Albumin (3.5-5.0) g/dL Lipase (23-300) U/L Disposition Clinical Impression: Chest pain, Acute cholecystitis, Leukocytosis Disposition: ADMITTED IP TO THIS [facility] Condition: Stable Is patient prescribed a controlled substance at d/c from ED?: No Decision to Admit Reason: Admit from EC Decision Date: 09/18/21 Decision Time: 13:38
[2021-09-18] MEDS ORDERED: HYDROmorphone 1 MG/ML 1 ML SYRINGE IVP STA ×2 (11:18→13:30)
--- NOTE | 2021-09-18 13:18 | CT ---
EXAMINATION TYPE: CT chest angio for PE DATE OF EXAM: 09/18/2021 COMPARISON: None HISTORY: Chest pain CT DLP: 753.7 mGycm Automated exposure control for dose reduction was used. CONTRAST: CT Chest for pulmonary embolism performed with with IV Contrast, patient injected with 100 mL of Isov ue 370. FINDINGS: LUNGS: The lungs are grossly clear, there is no concerning parenchymal mass or nodule identified. T here is no pleural effusion or pneumothorax seen. The tracheobronchial tree is patent. Subsegmental linear changes most typical of atelectasis. Mild central bronchiectasis. MEDIASTINUM: There is satisfactory enhancement of the pulmonary artery and its branches, there is no CT evidence for pulmonary embolism. There are no greater than 1 cm hilar or mediastinal lymph nodes. Coronary artery calcification. Aorta of normal caliber.. OTHER: There are low in attenuation. Gallbladder is distended. Hypertrophic and degenerative changes of the spine. IMPRESSION: 1. No diagnostic evidence of pulmonary embolism. 2. Correlate for mild COPD 3. Coronary artery calcification 4. Hepatic steatosis correlate for gallbladder hydrops.
--- NOTE | 2021-09-18 13:18 | CT ---
EXAMINATION TYPE: CT abdomen pelvis w con DATE OF EXAM: 09/18/2021 COMPARISON: CT dated 08/17/2021 HISTORY: Abd pain CT DLP: 1146 mGycm Automated exposure control for dose reduction was used. TECHNIQUE: Helical acquisition of images was performed from the lung bases through the pelvis. CONTRAST: Performed without Oral Contrast and with IV Contrast, patient injected with 100 mL of Isovue 370. FINDINGS: LUNG BASES: No significant abnormality is appreciated. LIVER/GB: Questionable hepatic steatosis. No definite hepatic focal lesion. Distended gallbladder wit h slightly thickened wall and mild pericholecystic fat stranding, please clinically for acute cholecy stitis. No definite radiodense gallbladder calculi. PANCREAS: Fatty infiltration the pancreatic head. SPLEEN: No significant abnormality is seen. ADRENALS: No significant abnormality is seen. KIDNEYS: Nonobstructing renal calculi measuring up to 3 mm on the right side and 2 mm on the left mitra e. Few bilateral renal hypodensities, likely representing renal cysts. FREE AIR: No free air is visualized. RETROPERITONEAL ADENOPATHY: None visualized REPRODUCTIVE ORGANS: No significant abnormality is seen URINARY BLADDER: No significant abnormality is seen. PELVIC ADENOPATHY: None visualized. OSSEOUS STRUCTURES: No aggressive bone lesion. BOWEL: Small sliding hiatal hernia otherwise unremarkable stomach. Fat stranding is seen surrounding the gastroduodenal junction, underlying inflamed peptic ulcer cannot be excluded. Unremarkable remai nder of the duodenum and small bowel. Scattered uncomplicated colonic diverticulosis. Normal appendix . OTHER: Arterial atherosclerotic calcifications. No sizable ascites. Right fat-containing inguinal her tony. Small fat-containing umbilical hernia. IMPRESSION: Mild acute inflammatory changes seen in the right upper quadrant surrounding the gastroduodenal junct ion as well as the gallbladder as described above. The underlying etiology could be related to an acu te inflamed peptic ulcer versus acute cholecystitis, please correlate clinically. Further surgery con sultation can be considered. Other incidental findings as described above.
[2021-09-18] MEDS ORDERED: PIPERACILLIN-TAZOBACTAM 3.375 GM in SODIUM CHLORIDE 0.9% 100 ML IVPB STA (13:24)
[2021-09-18] MEDS ORDERED: PANTOPRAZOLE 40 MG/10 ML VIAL IVP STA (13:25)
[2021-09-18] MEDS ORDERED: NALOXONE 0.4 MG/ML 1 ML VIAL IV PRN (13:38)
[2021-09-18] MEDS ORDERED: ONDANSETRON 4 MG/2 ML VIAL IVP PRN (13:48)
--- NOTE | 2021-09-18 14:35 | P.GSCN ---
History of Present Illness Consult date: 09/18/21 Reason for Consult: Acute cholecystitis History of present illness: CHIEF COMPLAINT: Chest pain HISTORY OF PRESENT ILLNESS: This is 61-year-old male with a past medical history of hypertension, hyperlipidemia and sleep apnea Patient presented to the emergency department by EMS for complaints of chest pain. States the chest pain began yesterday morning between 1 AM and 3:30 then resolved. Again this morning patient states the chest pain began about 1:30 in the morning and has continued. He states it substernal. He did state that he had some emesis for which he states he vomited into his mouth. He was recently admitted to the hospital in July with similar complaints however patient had more nausea and vomiting at that time. He was seen by Dr. Lee and thought to have possible ileus which resolved. No further follow-up was recommended. Patient states he has no history of gallbladder disease. He does have a history of GERD and states many years ago he had a procedure done. He denies any previous history of peptic ulcer disease. He does take NSAIDs quite frequently for aches and pains. He is also on a low-dose baby aspirin daily. Denies any anticoagulation. States yesterday he did take Naprosyn, Aleve, and ibuprofen related to the pain. Patient underwent a CT of the abdomen and pelvis showing mild acute inflammatory changes in the right upper quadrant surrounding the gastroduodenal junction as well as the gallbladder. That stranding seen surrounding the gastroduodenal junction, underlying inflamed peptic ulcer cannot be excluded. She also underwent CT angiogram of the chest that was negative for pulmonary embolism, correlate for mild COPD, hepatic steatosis correlate for gallbladder hydrops. He has leukocytosis, WBC 21.7 hemoglobin 15, LFTs unremarkable, troponin less than 0.012 lipase 223. He denies any fevers. States that he has had the chills since his CAT scan. PAST MEDICAL HISTORY: See list. PAST SURGICAL HISTORY: See list. MEDICATIONS: See list. ALLERGIES: See list. SOCIAL HISTORY: No illicit drug use. REVIEW OF SYSTEMS: CONSTITUTIONAL: Denies fever or chills. HEENT: Denies blurred vision, vision changes, or eye pain. Denies hemoptysis CARDIOVASCULAR: Denies chest pain or pressure. RESPIRATORY: No shortness of breath. GASTROINTESTINAL: See HPI for pertinent findings HEMATOLOGIC: Denies bleeding disorders. GENITOURINARY: Denies any blood in urine or increased urinary frequency. SKIN: Denies pruitis. Denies rash. PHYSICAL EXAM: VITAL SIGNS: Reviewed GENERAL: Well-developed in no acute distress. HEENT: No sclera icterus. Extraocular movements grossly intact. Moist buccal mucosa. Head is atraumatic, normocephalic. No nasal drainage. ABDOMEN: Soft. Obese. Nondistended. Nontender. NEUROLOGIC: Alert and oriented. Cranial nerves II through XII grossly intact. LABORATORY DATA: WBC 21.7 hemoglobin 15.6 hematocrit 47 platelet count 287 INR 0.9 Sodium 136 potassium 4.2 BUN 12 creatinine 1.06 glucose 147 magnesium 1.9 Total bilirubin is 0.5 AST 34-year-old T 52 alk phos 99 lipase 223 IMAGING: CT scan abdomen and pelvis report mild acute inflammatory changes seen in the right upper quadrant surrounding the gastroduodenal junction as well as gallbladder as described above. Underlying etiology could be related to an acute inflamed peptic ulcer versus acute cholecystitis, please correlate clinically. CT angiogram chest report states no diagnostic evidence of pulmonary embolism, correlate for mild COPD, coronary artery calcification, hepatic state ptosis correlate for gallbladder hydrops ASSESSMENT: 1. Chest pain 2. Leukocytosis 3. Distended gallbladder with slightly thickened wall and mild pericholecystic fat stranding and inflammatory changes seen in the right upper quadrant surrounding the gastroduodenal junction seen on CT abdomen and pelvis 4. Nausea and vomiting PLAN: 1. Continue nothing by mouth 2. Protonix 40 mg twice a day 3. Continue IV fluids 4. Continue IV Zosyn 5. Await gallbladder ultrasound 6. Repeat labs in morning 7. Avoid NSAIDs 8. Further recommendations forthcoming per surgeon Thank you for this consultation, we will continue to follow The impression and plan of care has been dictated as directed. Dr. Paniagua I performed a history and examination of this patient, discussed the same with the dictator. I agree with the dictator's note ,documented as a scribe. Any additional findings or plans will be noted. I have personally seen and examined the patient, reviewed the [employer] /PAs history, exam and MDM and agree with the assessment and plan as written. Based on total visit time, I have performed more than 50% of the visit. As above: Patient's history 2 separate CAT scans and ultrasound reviewed. Imaging suggest acute cholecystitis more likely possibility then perforated peptic ulcer at this time. Discussed options with patient and his . Will proceed with laparoscopic cholecystectomy, possible laparotomy. We discussed that if ulcer disease was identified this could require laparotomy and surgical repair of the ulcer site. Risks of bleeding, infection, bile leak, bile duct injury, retained common bile duct stone, trocar injury, conversion to an open procedure, hernia, anesthesia related complications were reviewed. The patient understands and wishes to proceed. Past Medical History Past Medical History: Cancer Additional Past Medical History / Comment(s): HTN, Sleep apnea, CLL History of Any Multi-Drug Resistant Organisms: None Reported Past Surgical History: Back Surgery Additional Past Surgical History / Comment(s): 2012 herniated disc repair. Past Psychological History: Panic Disorder, PTSD Smoking Status: Never smoker Past Alcohol Use History: None Reported Past Drug Use History: None Reported - Past Family History familyi Family Medical History: No Reported History Medications and Allergies Home Medications Medication Instructions Recorded Confirmed Type Ascorbic Acid [Vitamin C] 500 mg PO DAILY 08/17/21 09/18/21 History Aspirin EC [Ecotrin Low Dose] 81 mg PO DAILY 08/17/21 09/18/21 History Atorvastatin [Lipitor] 20 mg PO HS 08/17/21 09/18/21 History Cetirizine HCl 10 mg PO DAILY 08/17/21 09/18/21 History Cholecalciferol [Vitamin D3 (25 50 mcg PO DAILY 08/17/21 09/18/21 History Mcg = 1000 Iu)] Cyclobenzaprine [Flexeril] 10 mg PO DAILY PRN 08/17/21 09/18/21 History FLUoxetine HCL [PROzac] 40 mg PO DAILY 08/17/21 09/18/21 History Gabapentin [Neurontin] 400 mg PO QID 08/17/21 09/18/21 History Levothyroxine Sodium [Synthroid] 150 mcg PO DAILY 08/17/21 09/18/21 History Losartan [Cozaar] 50 mg PO DAILY 08/17/21 09/18/21 History Naproxen 500 mg PO BID PRN 08/17/21 09/18/21 History Omeprazole 20 mg PO DAILY 08/17/21 09/18/21 History Terazosin [Hytrin] 4 mg PO HS 08/17/21 09/18/21 History Vardenafil HCl [Levitra] 20 mg PO DAILY PRN 08/17/21 09/18/21 History Vitamin B Complex 1 cap PO DAILY 08/17/21 09/18/21 History Zinc 50 mg PO DAILY 08/17/21 09/18/21 History diazePAM [Valium] 5 mg PO BID PRN 08/17/21 09/18/21 History Carboxymethylcellulose Sodium 1 drop BOTH EYES QID 09/18/21 09/18/21 History [Thera Tears] Meclizine [Antivert] 25 mg PO BID PRN 09/18/21 09/18/21 History Tadalafil [Cialis] 5 mg PO DAILY 09/18/21 09/18/21 History Allergies Allergy/AdvReac Type Severity Reaction Status Date / Time niacin Allergy Anaphylaxis Verified 09/18/21 11:05 codeine AdvReac Abdominal Verified 09/18/21 11:05 Pain Surgical - Exam Vital Signs Temp Pulse Resp BP Pulse Ox 99.0 F 68 16 156/73 98 09/18/21 09:19 09/18/21 09:19 09/18/21 09:19 09/18/21 09:19 09/18/21 09:19 Results - Labs 09/19/21 06:34 09/19/21 06:34 Abnormal Lab Results - Last 24 Hours (Table) 09/18/21 09/18/21 Range/Units 09:52 09:52 WBC 21.7 H (3.8-10.6) k/uL Neutrophils # 14.5 H (1.3-7.7) k/uL Lymphocytes # 5.8 H (1.0-4.8) k/uL Sodium 136 L (137-145) mmol/L Glucose 147 H (74-99) mg/dL ALT 52 H (4-49) U/L Diabetes panel 09/18/21 Range/Units 09:52 Sodium 136 L (137-145) mmol/L Potassium 4.2 (3.5-5.1) mmol/L Chloride 104 (98-107) mmol/L Carbon Dioxide 24 (22-30) mmol/L BUN 12 (9-20) mg/dL Creatinine 1.06 (0.66-1.25) mg/dL Glucose 147 H (74-99) mg/dL Calcium 9.1 (8.4-10.2) mg/dL AST 35 (17-59) U/L ALT 52 H (4-49) U/L Alkaline Phosphatase 99 (38-126) U/L Total Protein 6.9 (6.3-8.2) g/dL Albumin 4.2 (3.5-5.0) g/dL Calcium panel 09/18/21 Range/Units 09:52 Calcium 9.1 (8.4-10.2) mg/dL Albumin 4.2 (3.5-5.0) g/dL Pituitary panel 09/18/21 Range/Units 09:52 Sodium 136 L (137-145) mmol/L Potassium 4.2 (3.5-5.1) mmol/L Chloride 104 (98-107) mmol/L Carbon Dioxide 24 (22-30) mmol/L BUN 12 (9-20) mg/dL Creatinine 1.06 (0.66-1.25) mg/dL Glucose 147 H (74-99) mg/dL Calcium 9.1 (8.4-10.2) mg/dL Adrenal panel 09/18/21 Range/Units 09:52 Sodium 136 L (137-145) mmol/L Potassium 4.2 (3.5-5.1) mmol/L Chloride 104 (98-107) mmol/L Carbon Dioxide 24 (22-30) mmol/L BUN 12 (9-20) mg/dL Creatinine 1.06 (0.66-1.25) mg/dL Glucose 147 H (74-99) mg/dL Calcium 9.1 (8.4-10.2) mg/dL Total Bilirubin 0.5 (0.2-1.3) mg/dL AST 35 (17-59) U/L ALT 52 H (4-49) U/L Alkaline Phosphatase 99 (38-126) U/L Total Protein 6.9 (6.3-8.2) g/dL Albumin 4.2 (3.5-5.0) g/dL
--- NOTE | 2021-09-18 14:38 | US ---
EXAMINATION TYPE: US gallbladder DATE OF EXAM: 09/18/2021 COMPARISON: CT CLINICAL HISTORY: abn ct findings. Abnormal CT findings. EXAM MEASUREMENTS: Liver Length: 17.2 cm Gallbladder Wall: 0.37 cm CBD: 0.40 cm Right Kidney: 11.0 x 6.1 x 5.3 cm Limited due to gas and patient body habitus. Pancreas: Limited due to gas. Liver: Increased attenuation, appears very coarse in echotexture. Measures upper limits of normal. Hypoechoic area seen adjacent to the gallbladder: 1.6 x 1.6 x 2.0 cm- possible focal fatty sparing. Gallbladder: Appears dilated measuring 11.4 cm in length. Wall appears slightly thickened. Possible internal echoes within near the neck versus artifact. Evidence for sonographic Cristobal's sign: No CBD: Portions seen appear wnl Right Kidney: No hydronephrosis or masses seen IMPRESSION: 1. Gallbladder hydrops with thickened gallbladder wall measuring 4 mm. Suggestive small amount of slu dge within the gallbladder. Correlate with HIDA scan as clinically warranted. 2. Nonspecific pattern to the liver most commonly seen with hepatic steatosis or hepatocellular disea se such as hepatitis. Localized area of low attenuation near the gallbladder fossa fatty sparing
[2021-09-18] MEDS ORDERED: MECLIZINE 25 MG TAB PO PRN (14:40)
--- NOTE | 2021-09-18 14:43 | P.HPIM ---
History of Present Illness Patient is a 61-year-old male with a past medical she significant for essential hypertension, hyperlipidemia and anxiety/depression the presents to the hospital complaining of epigastric/chest pain. This apparently began in the last 24 hours and has been progressively getting worse. He describes the pain as sharp in nature that does radiate to the shoulder and sometimes back. Currently he is asymptomatic has minimal pain currently rates it a 4 out of 10 versus 8 out of 10 before the pain medication was given. He denies anything that makes it better or worse. He denies any history of gallbladder or heart disease in the p ast. Denies any episodes of fever, chills, or vomiting however does have some nausea. He denies use of any illicit drugs including marijuana, alcohol. In the MRSA department his vital signs and stable temperature 99.9. CBC reviewed showing leukocytosis 21.7, BMP unremarkable except mild transaminitis hector to 52. Cardiac troponin negative 1. EKG reviewed. Computed tomography scan of the abdomen and pelvis reviewed. Showing mild inflammatory changes involving the right upper quadrant as well as gallbladder. Could be related to acute inflamed peptic ulcer versus acute cholecystitis. Surgical rate is consult on board. Past Medical History Past Medical History: Cancer Additional Past Medical History / Comment(s): HTN, Sleep apnea, CLL History of Any Multi-Drug Resistant Organisms: None Reported Past Surgical History: Back Surgery Additional Past Surgical History / Comment(s): 2013 herniated disc repair. Past Psychological History: Panic Disorder, PTSD Smoking Status: Never smoker Past Alcohol Use History: None Reported Past Drug Use History: None Reported - Past Family History familyi Family Medical History: No Reported History Medications and Allergies Home Medications Medication Instructions Recorded Confirmed Type Ascorbic Acid [Vitamin C] 500 mg PO DAILY 08/17/21 09/18/21 History Aspirin EC [Ecotrin Low Dose] 81 mg PO DAILY 08/17/21 09/18/21 History Atorvastatin [Lipitor] 20 mg PO HS 08/17/21 09/18/21 History Cetirizine HCl 10 mg PO DAILY 08/17/21 09/18/21 History Cholecalciferol [Vitamin D3 (25 50 mcg PO DAILY 08/17/21 09/18/21 History Mcg = 1000 Iu)] Cyclobenzaprine [Flexeril] 10 mg PO DAILY PRN 08/17/21 09/18/21 History FLUoxetine HCL [PROzac] 40 mg PO DAILY 08/17/21 09/18/21 History Gabapentin [Neurontin] 400 mg PO QID 08/17/21 09/18/21 History Levothyroxine Sodium [Synthroid] 150 mcg PO DAILY 08/17/21 09/18/21 History Losartan [Cozaar] 50 mg PO DAILY 08/17/21 09/18/21 History Naproxen 500 mg PO BID PRN 08/17/21 09/18/21 History Omeprazole 20 mg PO DAILY 08/17/21 09/18/21 History Terazosin [Hytrin] 4 mg PO HS 08/17/21 09/18/21 History Vardenafil HCl [Levitra] 20 mg PO DAILY PRN 08/17/21 09/18/21 History Vitamin B Complex 1 cap PO DAILY 08/17/21 09/18/21 History Zinc 50 mg PO DAILY 08/17/21 09/18/21 History diazePAM [Valium] 5 mg PO BID PRN 08/17/21 09/18/21 History Carboxymethylcellulose Sodium 1 drop BOTH EYES QID 09/18/21 09/18/21 History [Thera Tears] Meclizine [Antivert] 25 mg PO BID PRN 09/18/21 09/18/21 History Tadalafil [Cialis] 5 mg PO DAILY 09/18/21 09/18/21 History Allergies Allergy/AdvReac Type Severity Reaction Status Date / Time niacin Allergy Anaphylaxis Verified 09/18/21 11:05 codeine AdvReac Abdominal Verified 09/18/21 11:05 Pain Physical Exam Vitals: Vital Signs Temp Pulse Pulse Resp BP Pulse Ox 09/18/21 09:31 75 09/18/21 09:19 99.0 F 68 16 156/73 98 Intake and Output 09/17/21 09/18/21 09/18/21 22:59 06:59 14:59 Other: Weight 119.748 kg Gen. patient is awake alert oriented 3 Cardiac normal S1/S2 heard. Respiratory no wheezing or rhonchi appreciated bilateral air entry Abdomen slightly tender on deep palpation mainly in the epigastric/right upper quadrant pain Neuro no pitting edema noted Psych normal mood. Results CBC & Chem 7: 09/18/21 09:52 09/18/21 09:52 Labs: Abnormal Lab Results - Last 24 Hours (Table) 09/18/21 09/18/21 Range/Units 09:52 09:52 WBC 21.7 H (3.8-10.6) k/uL Neutrophils # 14.5 H (1.3-7.7) k/uL Lymphocytes # 5.8 H (1.0-4.8) k/uL Sodium 136 L (137-145) mmol/L Glucose 147 H (74-99) mg/dL ALT 52 H (4-49) U/L Assessment and Plan Assessment: Assessment: #1 intractable epigastric pain secondary to acute cholecystitis versus peptic ulcer disease #2 chest pain rule out ACS versus secondary to above #3 essential hypertension #4 hyperlipidemia Plan: -Admit to medicine for close monitoring -Aspiration/fall precaution -Continue with IV antimicrobials with IV Rocephin and Flagyl -Pain control when necessary, Zofran when necessary for nausea vomiting -DVT prophylaxis Lovenox -Resume home medication -Surgery and cardiology consulted from the emergency department -Trend cardiac troponin, obtain 2-D echocardiogram.
[2021-09-18] MEDS ORDERED: SODIUM CHLORIDE 0.9% 500 ML 500 ML IV ONE (17:13)
[2021-09-18] MEDS: ACETAMINOPHEN TAB 325 MG TAB PO PRN (17:29)
[2021-09-18] MEDS: LACTATED RINGERS 1,000 ML IV SCH (17:45)
[2021-09-18] MEDS: DOXAZOSIN 4 MG TAB PO SCH (20:33)
[2021-09-18] MEDS: GABAPENTIN 400 MG CAP PO SCH ×2 (20:33→23:07)
[2021-09-18] MEDS: ATORVASTATIN 20 MG TAB PO SCH (20:33)
[2021-09-18] MEDS: PIPERACILLIN-TAZOBACTAM 3.375 GM in SODIUM CHLORIDE 0.9% 100 ML IVPB SCH (23:33)
[2021-09-19] MEDS: HYDROmorphone 1 MG/ML 1 ML SYRINGE IVP PRN ×4 (01:23→20:42)
[2021-09-19] MEDS: LACTATED RINGERS 1,000 ML IV SCH ×3 (01:29→17:55)
[2021-09-19] MEDS: LEVOTHYROXINE 75 MCG TAB PO SCH (05:16)
[2021-09-19] MEDS: ACETAMINOPHEN TAB 325 MG TAB PO PRN (05:16)
[2021-09-19 07:16] LABS: HCT 44.4 % (39.0-53.0); HGB 15.2 gm/dL (13.0-17.5); MCH 32.5 pg (25.0-35.0); MCHC 34.1 g/dL (31.0-37.0); MCV 95.4 fL (80.0-100.0); Mean Platelet Volume 7.3; Platelet Count 313 k/uL (150-450); RBC 4.66 m/uL (4.30-5.90); RDW 13.7 % (11.5-15.5); WBC 32.4 k/uL (3.8-10.6)
[2021-09-19 07:25] LABS: ALT 41 U/L (4-49); AST 25 U/L (17-59); African American GFR (CKD) 81 (>60 ml/min/1.73 sqM); Albumin 3.7 g/dL (3.5-5.0); Albumin/Globulin Ratio 1.4; Alkaline Phosphatase 78 U/L (38-126); Anion Gap 8 mmol/L; Blood Urea Nitrogen 14 mg/dL (9-20); Calcium 8.5 mg/dL (8.4-10.2); Carbon Dioxide 23 mmol/L (22-30); Chloride 104 mmol/L (98-107); Globulin 2.7 g/dL; Glucose 132 mg/dL (74-99); Non-African American GFR(CKD) 70 (>60 ml/min/1.73 sqM); Sodium 135 mmol/L (137-145); Total Bilirubin 1.4 mg/dL (0.2-1.3); Total Protein 6.4 g/dL (6.3-8.2)
[2021-09-19] MEDS: PIPERACILLIN-TAZOBACTAM 3.375 GM in SODIUM CHLORIDE 0.9% 100 ML IVPB SCH ×3 (07:41→23:59)
[2021-09-19] MEDS: PANTOPRAZOLE 40 MG/10 ML VIAL IV SCH (07:42)
[2021-09-19] MEDS: LOSARTAN 50 MG TAB PO SCH (07:42)
[2021-09-19] MEDS: ASPIRIN 81 MG PO SCH (07:42)
[2021-09-19] MEDS: GABAPENTIN 400 MG CAP PO SCH ×4 (07:42→20:42)
[2021-09-19] MEDS ORDERED: NON FORMULARY DRUG (Omeprazole [Omeprazole] 20 MG Capsule.Dr) PO SCH (09:00)
[2021-09-19 10:19] LABS: Lymphocytes # (M) 5.83 k/uL (1.0-4.8); Monocytes # (M) 0.97 k/uL (0-1.0); Neutrophils % (M) 79 %; Nucleated Red Blood Cells 0 /100 WBC (0-0); Total Cells Counted 100
[2021-09-19 10:21] LABS: RBC Morphology Normal
--- NOTE | 2021-09-19 10:39 | ECHOF ---
Referral Reason:chest pain MEASUREMENTS -------- HEIGHT: 180.3 cm WEIGHT: 119.7 kg BP: RVIDd: 2.8 cm (< 3.3) IVSd: 1.7 cm (0.6 - 1.1) LVIDd: 3.9 cm (3.9 - 5.3) LVPWd: 1.9 cm (0.6 - 1.1) IVSs: 2.6 cm LVIDs: 1.9 cm LVPWs: 2.5 cm Ao Diam: 3.5 cm (2.0 - 3.7) AV Cusp: 2.3 cm (1.5 - 2.6) LA Diam: 3.9 cm (2.7 - 3.8) MV EXCURSION: 14.837 mm (> 18.000) MV EF SLOPE: 73 mm/s (70 - 150) EPSS: 0.7 cm MV E Poncho: 0.61 m/s MV DecT: 171 ms MV A Poncho: 0.73 m/s MV E/A Ratio: 0.84 RAP: 5.00 mmHg RVSP: 23.58 mmHg FINDINGS -------- This was a technically adequate study. The left ventricular size is normal. There is severe concentric left ventricular hypertrophy. Ove rall left ventricular systolic function is normal with, an EF between 60 - 65 %. The right ventricle is normal in size. The left atrial size is normal. The right atrial size is normal. The aortic valve is trileaflet and appears structurally normal. The mitral valve is normal. There is trace mitral regurgitation. The tricuspid valve appears structurally normal. Trace tricuspid regurgitation present. Right regina tricular systolic pressure is normal at < 35 mmHg. There is no pulmonic regurgitation present. The aortic root size is normal. IVC Not well visulized. There is no pericardial effusion. CONCLUSIONS -------- 1. The left ventricular size is normal. 2. There is severe concentric left ventricular hypertrophy. 3. Overall left ventricular systolic function is normal with, an EF between 60 - 65 %. 4. There is trace mitral regurgitation. 5. Trace tricuspid regurgitation present. 6. There is no pericardial effusion. [employer]: Angelica Najera RDCS
--- NOTE | 2021-09-19 11:00 | CONS ---
CONSULTATION CHIEF COMPLAINT: Chest pain. Yazan is a 61-year-old gentleman with history of hypertension, hypothyroidism, dyslipidemia and neuropathy who presented to hospital primarily complaining of right upper abdominal discomfort and also had discomfort in the interscapular area. He is admitted with a diagnosis of cholecystitis, and Cardiology has been consulted to rule out the possibility that his chest discomfort is cardiac in origin. His symptoms are more epigastric. He describes it as 4/10 intensity epigastric discomfort that had resolved by the time I evaluated him on the floor. There is no prior history of coronary artery disease or congestive heart failure. He states that he has had prior negative cardiac workup, but that was many many years ago. EKG does not reveal ischemic changes. He has had only one set of troponin. Will repeat a troponin and I will obtain a 2D echo to evaluate his LV function. If the LV function looks good, wall motion looks good, we can proceed with cholecystectomy and consider an outpatient stress test on him. PAST MEDICAL HISTORY: Significant for hypertension, sleep apnea. PAST SURGICAL HISTORY: Significant for herniated disc repair. SOCIAL HISTORY: Negative for smoking, EtOH abuse or drug abuse. Significant for panic disorder, posttraumatic stress disorder. REVIEW OF SYSTEMS: Fourteen out of 14 review of systems has been performed. Pertinents are as documented in my history of presenting illness. PHYSICAL EXAMINATION: Comfortable at rest. Afebrile this morning, but he had a fever of 103.3 on his initial presentation. Heart rate is elevated. Blood pressure is 140/70. Respiratory rate is 20. O2 saturation is 98%. There is no jugular venous distention. Carotid upstroke is diminished. There is no bruit. Chest exam reveals good air entry bilaterally. Heart exam reveals first and second heart sounds. No gallop. No murmur. No rub. Abdomen shows mild tenderness in the right upper quadrant area. Examination of extremities did not reveal any edema. Peripheral pulses are felt. LABS: Labs show that the white cell count has gone up to 32, potassium is 4, creatinine is 1. Two sets of troponins are negative. Coronavirus test is negative. EKG does not reveal ischemic changes. ASSESSMENT: 1. Epigastric pain secondary to acute cholecystitis. Please proceed with surgery urgently. His white cell count has gone up since being admitted to hospital. 2. Atypical precordial chest pain. IA ruled out. I will obtain a 2D echo and he will need an outpatient stress test. Patient is cleared for surgery. Proceed with it expeditiously. Thank you for giving me the privilege of participating in the care of this pleasant gentleman. KATTY / LEO: [id number] /
[2021-09-19] MEDS: FLUoxetine HCL 20 MG CAP PO SCH (11:34)
[2021-09-19] MEDS ORDERED: LACTATED RINGERS 500 ML IV ONE (13:05)
[2021-09-19] MEDS ORDERED: HEPARIN SODIUM,PORCINE/PF 5,000 UNIT/0.5 ML SYRINGE SQ ONE (13:35)
[2021-09-19] MEDS ORDERED: HEPARIN SODIUM,PORCINE 5,000 UNIT/ML 1 ML VIAL SQ ONE (13:40)
[2021-09-19] MEDS ORDERED: ACETAMINOPHEN IV (For NPO) 1,000 MG/100 ML VIAL IVPB ONE (13:41)
[2021-09-19] MEDS ORDERED: DEXAMETHASONE SOD PHOSPHATE 4 MG/ML 1 ML VIAL IVP ONE (13:48)
[2021-09-19] MEDS ORDERED: MIDAZOLAM 2 MG/2 ML VIAL ONE (13:56)
[2021-09-19] MEDS ORDERED: SUCCINYLCHOLINE CHLORIDE VIAL 200 MG/10 ML VIAL IV ONE (13:56)
[2021-09-19] MEDS ORDERED: fentaNYL (PF) 50 MCG/ML 2 ML AMP ONE (13:56)
[2021-09-19] MEDS ORDERED: NEOSTIGMINE 1 MG/ML 10 ML VIAL ONE (13:56)
[2021-09-19] MEDS ORDERED: HYDROmorphone (PF) 1 MG/ML ONE (13:56)
[2021-09-19] MEDS ORDERED: LIDOCAINE 1% INJ 10MG/ML (20 ML MDV) ONE (13:56)
[2021-09-19] MEDS ORDERED: KETOROLAC 15 MG/ML 1 ML VIAL ONE (13:56)
[2021-09-19] MEDS ORDERED: GLYCOPYRROLATE 0.2 MG/ML 2 ML VIAL ONE (13:56)
[2021-09-19] MEDS ORDERED: PROPOFOL 10 MG/ML 20 ML VIAL IV ONE (13:56)
[2021-09-19] MEDS ORDERED: PHENYLEPHRINE-0.9% NACL SYG 1,000 MCG/10 ML SYRINGE ONE (13:56)
[2021-09-19] MEDS ORDERED: ROCURONIUM 10 MG/ML (5 ML VIAL) IV ONE (13:56)
[2021-09-19] MEDS ORDERED: BUPIVACAIN-EPI 0.25%-1:200,000 30 ML VIAL SQ ONE (14:22)
--- NOTE | 2021-09-19 14:32 | P.CONS ---
History of Present Illness - Reason for Consult Consult date: 09/19/21 leukocytosi Requesting physician: Cynthia Meier - History of Present Illness He now presented to Emergency with complaints of chest pain. We were asked to further evaluate patient for leukocytosis.He has a known past medical history of CLL, hypertension presents emergency department with chest pain. Patient reports that he has had a cough and chest pain for the past 3 days. Located substernally with radiation to his bilateral shoulders. Denies productive cough. No sick contacts. No fevers. CTA negative for PE. He was found to have cholecystitis and brought to OR. Review of Systems All systems: negative Constitutional: Reports as per HPI Past Medical History Past Medical History: Cancer Additional Past Medical History / Comment(s): HTN, Sleep apnea, CLL History of Any Multi-Drug Resistant Organisms: None Reported Past Surgical History: Back Surgery Additional Past Surgical History / Comment(s): 2012 herniated disc repair. Past Psychological History: Panic Disorder, PTSD Smoking Status: Never smoker Past Alcohol Use History: None Reported Past Drug Use History: None Reported - Past Family History familyi Family Medical History: No Reported History Medications and Allergies Home Medications Medication Instructions Recorded Confirmed Type Ascorbic Acid [Vitamin C] 500 mg PO DAILY 08/17/21 09/18/21 History Aspirin EC [Ecotrin Low Dose] 81 mg PO DAILY 08/17/21 09/18/21 History Atorvastatin [Lipitor] 20 mg PO HS 08/17/21 09/18/21 History Cetirizine HCl 10 mg PO DAILY 08/17/21 09/18/21 History Cholecalciferol [Vitamin D3 (25 50 mcg PO DAILY 08/17/21 09/18/21 History Mcg = 1000 Iu)] Cyclobenzaprine [Flexeril] 10 mg PO DAILY PRN 08/17/21 09/18/21 History FLUoxetine HCL [PROzac] 40 mg PO DAILY 08/17/21 09/18/21 History Gabapentin [Neurontin] 400 mg PO QID 08/17/21 09/18/21 History Levothyroxine Sodium [Synthroid] 150 mcg PO DAILY 08/17/21 09/18/21 History Losartan [Cozaar] 50 mg PO DAILY 08/17/21 09/18/21 History Naproxen 500 mg PO BID PRN 08/17/21 09/18/21 History Omeprazole 20 mg PO DAILY 08/17/21 09/18/21 History Terazosin [Hytrin] 4 mg PO HS 08/17/21 09/18/21 History Vardenafil HCl [Levitra] 20 mg PO DAILY PRN 08/17/21 09/18/21 History Vitamin B Complex 1 cap PO DAILY 08/17/21 09/18/21 History Zinc 50 mg PO DAILY 08/17/21 09/18/21 History diazePAM [Valium] 5 mg PO BID PRN 08/17/21 09/18/21 History Carboxymethylcellulose Sodium 1 drop BOTH EYES QID 09/18/21 09/18/21 History [Thera Tears] Meclizine [Antivert] 25 mg PO BID PRN 09/18/21 09/18/21 History Tadalafil [Cialis] 5 mg PO DAILY 09/18/21 09/18/21 History Levofloxacin [Levaquin] 500 mg PO DAILY 7 Days #7 tab 09/19/21 Rx traMADol HCl [Ultram] 50 mg PO Q6H PRN #10 tab 09/19/21 Rx Allergies Allergy/AdvReac Type Severity Reaction Status Date / Time niacin Allergy Anaphylaxis Verified 09/18/21 11:05 codeine AdvReac Abdominal Verified 09/18/21 11:05 Pain Physical Exam Vitals: Vital Signs Temp Pulse Pulse Resp BP BP BP 09/19/21 13:09 101.2 F H 111 H 18 157/72 09/19/21 08:00 111 H 18 09/19/21 07:00 98.9 F 117 H 20 147/70 09/19/21 06:03 98.6 F 09/19/21 05:12 100.3 F H 114 H 162/78 09/19/21 01:27 99.5 F 91 20 180/93 09/18/21 23:02 98.1 F 91 20 132/80 09/18/21 22:17 98.9 F 94 16 144/83 09/18/21 18:35 99.4 F 112 H 16 152/75 09/18/21 17:00 103.3 F H 137 H 20 200/89 Pulse Ox 09/19/21 13:09 96 09/19/21 08:00 09/19/21 07:00 98 09/19/21 06:03 09/19/21 05:12 92 L 09/19/21 01:27 98 09/18/21 23:02 94 L 09/18/21 22:17 95 09/18/21 18:35 96 09/18/21 17:00 95 Intake and Output 09/18/21 09/19/21 09/19/21 22:59 06:59 14:59 Other: # Voids 3 Alert and oriented NAD Lungs Coarse diminished HR RRR Abd Soft Ext no edema Results CBC & Chem 7: 09/20/21 06:56 09/20/21 06:56 Labs: Abnormal Lab Results - Last 24 Hours (Table) 09/19/21 09/19/21 Range/Units 06:34 06:34 WBC 32.4 H (3.8-10.6) k/uL Neutrophils # (Manual) 25.60 H (1.3-7.7) k/uL Lymphocytes # (Manual) 5.83 H (1.0-4.8) k/uL Sodium 135 L (137-145) mmol/L Glucose 132 H (74-99) mg/dL Total Bilirubin 1.4 H (0.2-1.3) mg/dL CT scan - abdomen: report reviewed CT scan - chest: report reviewed CT scan - pelvis: report reviewed Assessment and Plan (1) Chronic lymphocytic leukemia Current Visit: Yes Status: Acute Code(s): C91.10 - CHRONIC LYMPHOCYTIC LEUK OF B-CELL TYPE NOT ACHIEVE REMIS SNOMED Code(s): 92785225 (2) Acute cholecystitis Current Visit: Yes Status: Acute Code(s): K81.0 - ACUTE CHOLECYSTITIS SNOMED Code(s): 12132632 (3) Leukocytosis Current Visit: Yes Status: Acute Code(s): D72.829 - ELEVATED WHITE BLOOD CELL COUNT, UNSPECIFIED SNOMED Code(s): 607285632 Plan: Patient has known history of CLL, now admitted with acute inflammatory situation requiring surgical intervention. No acute intervention from oncology standpoint regarding CLL. Will check immunoglobulins to ensure immune function is adequate Plan for observation follow-up with oncology 3-4 weeks post discharge
[2021-09-19] MEDS ORDERED: LACTATED RINGERS 1,000 ML IV ONE (14:54)
[2021-09-19] MEDS ORDERED: traMADol 50 MG TAB PO PRN (15:30)
--- NOTE | 2021-09-19 15:36 | P.OP ---
Date of Procedure: 09/19/21 Procedure(s) Performed: PREOPERATIVE DIAGNOSIS: Acute cholecystitis POSTOPERATIVE DIAGNOSIS: Acute gangrenous cholecystitis with hydrops PROCEDURE: Laparoscopic cholecystectomy SURGEON: Siva EBL: 25 mL ANESTHESIA: Gen. COMPLICATIONS: None OPERATIVE PROCEDURE: The patient was brought and placed on the operating room table in the supine position. The patient was placed under general anesthesia at that time. The abdomen was prepped and draped in the usual sterile fashion. A small curvilinear infraumbilical incision was made. The fascia was grasped with the Brittney forceps. The fascia was retracted anteriorly. The Veress needle was advanced into the peritoneal cavity. The saline drop test was nor mal. Insufflation took place up to 15 mmHg. A 5 mm optical trocar was advanced and the peritoneal cavity. 2 additional 5 mm trochars were placed in the right upper quadrant under direct visualization. A 12 mm trocar was advanced into the epigastric incision site. The gallbladder was acutely inflamed. It was very tense. A small opening was made and hydrops fluid was evacuated along with pus. We were then able to retract the gallbladder superiorly and laterally. The peritoneum overlying the infundibulum was bluntly dissected. The patient's cystic duct was visualized. The junction between the cystic duct common and hepatic duct was identified. The critical view of safety was achieved after blunt dissection. The cystic duct was then divided after placement of a 2-0 Ethibond stitch around the cystic duct secured using a tie knot. A 12 mm clip was also placed on the patient's side. A small vessel adjacent to this was clipped as well. The cystic duct was then divided on the specimen side. The more properly sized cystic artery was identified and clipped as well. A small vessel along the back wall of the gallbladder was clipped. Most of the dissection of the gallbladder away from the liver took place using blunt dissection as there was a natural plane there. Once the gallbladder was removed bleeding was controlled using spot cautery. I also used the Surgicel powder along the gallbladder fossa. No further bleeding was identified. A drain was placed in the gallbladder fossa exiting from the lateral right upper quadrant trocar site. This was sutured in place using a 3-0 silk stitch. The gallbladder was removed from the epigastric trocar site with an Endo Catch bag. The fascia at the 12 millimeter site was closed using a running 0 Vicryl stitch. The trochars were then removed. The skin at all 3 sites was closed using a 4-0 Monocryl stitch. Skin glue was utilized on the incision sites. At the end of this procedure the sponge and needle counts were correct. DISPOSITION: Stable to the recovery room
[2021-09-19] MEDS: ATORVASTATIN 20 MG TAB PO SCH (20:32)
[2021-09-19] MEDS: DOXAZOSIN 4 MG TAB PO SCH (20:33)
[2021-09-19] MEDS: BENZOCAINE/MENTHOL LOZENG 1 EACH LOZENGE MUCOUS MEM PRN (20:40)
--- NOTE | 2021-09-19 21:46 | P.PN ---
Subjective Progress Note Date: 09/19/21 (delayed charting seen at 1700) Principal diagnosis: abdominal pain Patient is a 60-year-old male with a history of hypertension, diabetes, CLL who initially presented to the ER with complaints of abdominal pain and chest pain. Patient was recently here from 219 through 221 with complaints of abdominal pain at that time was felt to be secondary to ileus and possible viral gastroenteritis and was subsequently discharged home. CT abdomen and pelvis demonstrated acute inflammatory changes in the right upper quadrant at the gastroduodenal junction and gallbladder. Chest x-ray demonstrated no acute process. CT of the chest demonstrated hepatic steatosis possible gallbladder hydrops but no evidence of pulmonary embolism. Patient was seen by surgery and started on IV Zosyn with plans for full cystectomy once cardiac clearance completed. Troponins remained negative. Echocardiogram showed severe concentric LVH with ejection fraction 60-65%. He was cleared by cardiology for surgery. He was also seen by oncology. Patient seen and examined at bedside. He is having some right upper quadrant pain after surgery. He denies any chest pain, shortness breath, nausea, vomiting. He is still feeling pretty sedated. Family present at bedside and all questions answered. General: Ill appearing, mild distress Derm: warm, dry Head: atraumatic, normocephalic, symmetric Eyes: EOMI, no lid lag, anicteric sclera Mouth: no lip lesion, mucus membranes moist Cardiovascular: S1S2 reg, no murmur, positive posterior tibial pulse bilateral, Lungs: Decreased breath sounds bilateral, no rhonchi, no rales , no accessory muscle use Abdominal: soft, diffusely tender to palpation, no guarding, no appreciable organomegaly Ext: no gross muscle atrophy, no edema, no contractures Neuro: CN II-XI grossly intact, no focal neuro deficits Psych: Alert, oriented, appropriate affect Assessment/plan: Acute cholecystitis with underlying sepsis -Status post laparoscopic cholecystectomy -Continue with vancomycin -Continue with IV fluids Chest pain -Likely related to gallbladder -Cardiology recommendations appreciated -Echocardiogram with severe LVH which will need to be followed in the outpatient setting with blood pressure optimization CLL -Oncology recommendations -Outpatient follow-up Hypothyroidism -Synthroid Hypertension -Continue current medications -Follow blood pressures DVT prophylaxis: Start Lovenox in a.m. if okay with surgery Discussed with: Patient, nursing, family Anticipated discharge: anticipate will need several days of IV abx. Anticipated discharge place: home A total of 65 minutes was spent on the care of this complex patient more than 50% of the time was spent in counseling and care coordination. Objective - Vital Signs Vital signs: Vital Signs Temp 98.9 F 09/19/21 20:38 Pulse 88 09/19/21 20:38 Resp 19 09/19/21 20:38 BP 148/76 09/19/21 20:38 Pulse Ox 95 09/19/21 20:38 Intake & Output 09/19/21 09/19/21 09/20/21 06:59 18:59 06:59 Intake Total 1018 Output Total 35 200 Balance 983 -200 Weight 119.748 kg Intake: IV 900 Oral 118 Output: Urine 200 Estimated Blood Loss 35 Other: # Voids 3 4 1 - Labs CBC & Chem 7: 09/19/21 06:34 09/19/21 06:34 Labs: Abnormal Lab Results - Last 24 Hours (Table) 09/19/21 09/19/21 Range/Units 06:34 06:34 WBC 32.4 H (3.8-10.6) k/uL Neutrophils # (Manual) 25.60 H (1.3-7.7) k/uL Lymphocytes # (Manual) 5.83 H (1.0-4.8) k/uL Sodium 135 L (137-145) mmol/L Glucose 132 H (74-99) mg/dL Total Bilirubin 1.4 H (0.2-1.3) mg/dL Microbiology - Last 24 Hours (Table) 09/18/21 15:50 Blood Culture - Preliminary Blood No Growth after 24 hours 09/18/21 15:45 Blood Culture - Preliminary Blood No Growth after 24 hours
[2021-09-20] MEDS: HYDROmorphone 1 MG/ML 1 ML SYRINGE IVP PRN ×4 (00:29→19:47)
[2021-09-20] MEDS: LACTATED RINGERS 1,000 ML IV SCH ×3 (00:33→17:40)
[2021-09-20] MEDS: LEVOTHYROXINE 75 MCG TAB PO SCH (06:04)
--- NOTE | 2021-09-20 07:50 | P.PN ---
Subjective Patient came to hospital with a combination of abdominal and chest discomfort and ruled out for myocardial infarction. He had an echocardiogram that showed normal LV function and wall motion. He underwent cholecystectomy and his symptoms have improved significantly. I advised the patient to undergo an outpatient stress test. On exam today vital signs are stable chest exam reveals diminished air entry at the bases heart exam reveals first and second heart sounds no gallop abdomen is status post surgery examination extremities did not reveal any edema There are no new labs from this morning Assessment and plan: Atypical chest pain Abdominal pain secondary to cholecystitis Patient will continue current care needs an outpatient stress test Objective - Vital Signs Vital signs: Vital Signs Temp 99.1 F 09/20/21 07:00 Pulse 110 H 09/20/21 07:00 Resp 16 09/20/21 07:00 BP 131/56 09/20/21 07:00 Pulse Ox 91 L 09/20/21 07:00 Intake & Output 09/19/21 09/20/21 09/20/21 18:59 06:59 18:59 Intake Total 1018 Output Total 35 650 Balance 983 -650 Weight 119.748 kg Intake: IV 900 Oral 118 Output: Drainage 50 Right Abdomen 50 Urine 600 Estimated Blood Loss 35 Other: # Voids 4 1 - Labs CBC & Chem 7: 09/19/21 06:34 09/19/21 06:34 Labs: Abnormal Lab Results - Last 24 Hours (Table) 09/19/21 Range/Units 06:34 Neutrophils # (Manual) 25.60 H (1.3-7.7) k/uL Lymphocytes # (Manual) 5.83 H (1.0-4.8) k/uL Microbiology - Last 24 Hours (Table) 09/18/21 15:50 Blood Culture - Preliminary Blood No Growth after 24 hours 09/18/21 15:45 Blood Culture - Preliminary Blood No Growth after 24 hours
[2021-09-20] MEDS: ASPIRIN 81 MG PO SCH (08:55)
[2021-09-20] MEDS: FLUoxetine HCL 20 MG CAP PO SCH (08:55)
[2021-09-20] MEDS: LOSARTAN 50 MG TAB PO SCH (08:56)
[2021-09-20] MEDS: GABAPENTIN 400 MG CAP PO SCH ×4 (08:56→19:41)
[2021-09-20] MEDS: PANTOPRAZOLE 40 MG/10 ML VIAL IV SCH (08:56)
[2021-09-20] MEDS: PIPERACILLIN-TAZOBACTAM 3.375 GM in SODIUM CHLORIDE 0.9% 100 ML IVPB SCH ×4 (08:56→23:40)
[2021-09-20 10:47] LABS: HCT 40.4 % (39.6-50.0); HGB 13.3 g/dL (13.0-17.0); MCH 31.2 pg (27.0-32.0); MCHC 32.9 g/dL (32.0-37.0); MCV 94.8 fL (80.0-97.0); Mean Platelet Volume 9.8 fL (9.5-12.2); NRBC Per 100 WBC 0 /100 WBCS (0.0-0.0); Platelet Count 246 X 10*3/uL (140-440); RBC 4.26 X 10*6/uL (4.40-5.60); RDW 13.3 % (11.5-14.5); WBC 25.39 X 10*3/uL (4.50-10.00)
[2021-09-20 10:58] LABS: African American GFR (CKD) 73.9 (60.0-200.0); Albumin 3.5 g/dL (3.8-4.9); Albumin/Globulin Ratio 1.74 (1.60-3.17); Anion Gap 12.6 mmol/L (10.00-18.00); BUN/Creat Ratio 12.07 Ratio (12.00-20.00); Blood Urea Nitrogen 14.6 mg/dL (9.0-27.0); Calcium 8.7 mg/dL (8.7-10.3); Carbon Dioxide 22.4 mmol/L (20.0-27.5); Non-African American GFR(CKD) 63.8 (60.0-200.0); Potassium 4.2 mmol/L (3.5-5.5); Total Bilirubin 0.6 mg/dL (0.30-1.20); Total Protein 5.5 g/dL (6.2-8.2)
[2021-09-20 11:22] LABS: Basophils # (A) 0.03 X 10*3/uL (0.00-0.10); Basophils % (A) 0.1 %; Eosinophils # (A) 0 X 10*3/uL (0.04-0.35); Eosinophils % (A) 0 %; Immature Grans, Automated 0.6 %; Lymphocytes # (A) 5.54 X 10*3/uL (0.90-5.00); Lymphocytes % (A) 21.8 %; Monocytes % (A) 6.7 %; Neutrophils # (A) 17.97 X 10*3/uL (1.80-7.70); Neutrophils % (A) 70.8 %
[2021-09-20 11:23] LABS: RBC Morphology NORMAL
--- NOTE | 2021-09-20 15:37 | P.PN ---
Subjective Progress Note Date: 09/20/21 HISTORY OF PRESENT ILLNESS: Patient is seen and examined lying in bed. He is postop day #1 for laparoscopic cholecystectomy for acute gangrenous cholecystitis with hydrops. Patient states he does have surgical pain however he denies any chest pain or epigastric pain. He denies any nausea or vomiting. VALENCIA drain is in place. He is tolerating clear liquid diet. States he is not pas sing gas but he is feeling his stomach rumble. He's been afebrile. WBC 25 hemoglobin 13 platelet count 246 PHYSICAL EXAM: VITAL SIGNS: Reviewed. GENERAL: Well-developed in no acute distress. HEENT: No sclera icterus. Extraocular movements grossly intact. Moist buccal mucosa. Head is atraumatic, normocephalic. ABDOMEN: Soft. Nondistended. Surgical tenderness. VALENCIA drain and right side of abdomen with excellent mental a 25 mL serosanguineous drainage. Incision sites well approximated. Positive bowel sounds NEUROLOGIC: Alert and oriented. Cranial nerves II through XII grossly intact. ASSESSMENT: 1. Acute gangrenous cholecystitis with hydrops status post laparoscopic cholecystectomy 2. Chest pain, acute coronary event ruled out by cardiology PLAN: 1. Continue clear liquid diet and advance as tolerated to low fat diet 2. Continue with pain management 3. Incentive spirometer to bedside, and encouraged use 4. Encourage ambulation 5. Protonix GI prophylaxis 6. Continue IV antibiotics 7. Anticipate discharge in the next 24-48 hours Thank you for this consultation, we will continue to follow. The impression and plan of care has been dictated as directed. Dr. Gray I performed a history and examination of this patient, discussed the same with the dictator. I agree with the dictator's note ,documented as a scribe. Any additional findings or plans will be noted. Objective - Vital Signs Vital signs: Vital Signs Temp 98.2 F 09/20/21 14:15 Pulse 99 09/20/21 14:15 Resp 16 09/20/21 14:15 BP 142/70 09/20/21 14:15 Pulse Ox 95 09/20/21 14:15 Intake & Output 09/19/21 09/20/21 09/20/21 18:59 06:59 18:59 Intake Total 1018 236 Output Total 35 650 500 Balance 988 -581 -939 Weight 119.748 kg Intake: IV 900 Oral 118 236 Output: Drainage 50 Right Abdomen 50 Urine 600 500 Estimated Blood Loss 35 Other: # Voids 4 1 2 - Labs CBC & Chem 7: 09/20/21 06:56 09/20/21 06:56 Labs: Abnormal Lab Results - Last 24 Hours (Table) 09/20/21 09/20/21 Range/Units 06:56 06:56 WBC 25.39 H (4.50-10.00) X 10*3/uL RBC 4.26 L (4.40-5.60) X 10*6/uL Immature Gran # 0.15 H (0.00-0.04) X 10*3/uL Neutrophils # 17.97 H (1.80-7.70) X 10*3/uL Lymphocytes # 5.54 H (0.90-5.00) X 10*3/uL Monocytes # 1.70 H (0.20-1.00) X 10*3/uL Eosinophils # 0 L (0.04-0.35) X 10*3/uL Glucose 130 H (70-110) mg/dL Total Protein 5.5 L (6.2-8.2) g/dL Albumin 3.5 L (3.8-4.9) g/dL Microbiology - Last 24 Hours (Table) 09/18/21 15:50 Blood Culture - Preliminary Blood No Growth after 24 hours 09/18/21 15:45 Blood Culture - Preliminary Blood No Growth after 24 hours
[2021-09-20] MEDS: BENZOCAINE/MENTHOL LOZENG 1 EACH LOZENGE MUCOUS MEM PRN (15:54)
[2021-09-20] MEDS: DOXAZOSIN 4 MG TAB PO SCH (19:41)
[2021-09-20] MEDS: ATORVASTATIN 20 MG TAB PO SCH (19:41)
[2021-09-20] MEDS: ACETAMINOPHEN TAB 325 MG TAB PO PRN (19:41)
--- NOTE | 2021-09-20 21:59 | P.PN ---
Subjective Progress Note Date: 09/20/21 (delayed charting seen at 0830) Principal diagnosis: abdominal pain Patient is a 60-year-old male with a history of hypertension, diabetes, CLL who initially presented to the ER with complaints of abdominal pain and chest pain. Patient was recently here from 219 [facility] 221 with complaints of abdominal pain at that time was felt to be secondary to ileus and possible viral gastroenteritis and was subsequently discharged home. CT abdomen and pelvis demonstrated acute inflammatory changes in the right upper quadrant at the gastroduodenal junction and gallbladder. Chest x-ray demonstrated no acute process. CT of the chest demonstrated hepatic steatosis possible gallbladder hydrops but no evidence of pulmonary embolism. Patient was seen by surgery and started on IV Zosyn with plans for full cystectomy once cardiac clearance completed. Troponins remained negative. Echocardiogram showed severe concentric LVH with ejection fraction 60-65%. He was cleared by cardiology for surgery. He was also seen by oncology with CLL. Patient seen and examined at bedside. Pain is better today. Tolerating orals. No nausea or vomiting, no diarrhea, no chest pain, no shrotness of breath General: Ill appearing, no distress Derm: warm, dry Head: atraumatic, normocephalic, symmetric Eyes: EOMI, no lid lag, anicteric sclera Mouth: no lip lesion, mucus membranes moist Cardiovascular: S1S2 reg, no murmur, positive posterior tibial pulse bilateral, Lungs: Decreased breath sounds bilateral, no rhonchi, no rales , no accessory muscle use Abdominal: soft, diffusely tender to palpation, no guarding, no appreciable organomegaly, VALENCIA drain in place Ext: no gross muscle atrophy, no edema, no contractures Neuro: CN II-XI grossly intact, no focal neuro deficits Psych: Alert, oriented, appropriate affect Assessment/plan: Acute cholecystitis with underlying sepsis -Status post laparoscopic cholecystectomy -Continue with zosyn -Continue with IV fluids - diet per surgery recs Chest pain -Likely related to gallbladder -Cardiology recommendations appreciated: outpatient stress test -Echocardiogram with severe LVH which will need to be followed in the outpatient setting with blood pressure optimization CLL -Oncology recommendations -Outpatient follow-up Hypothyroidism -Synthroid Hypertension -Continue current medications -Follow blood pressures DVT prophylaxis:lovenox Discussed with: Patient, nursing, family Anticipated discharge: anticipate will need several days of IV abx. Anticipated discharge place: home A total of 35 minutes was spent on the care of this complex patient more than 50% of the time was spent in counseling and care coordination. Active Medications Acetaminophen (Acetaminophen Tab 325 Mg Tab) 650 mg PO Q6HR PRN PRN Reason: Fever and/ or MILD Pain Last Admin: 09/20/21 19:41 Dose: 650 mg Documented by: Aspirin (Aspirin 81 Mg) 81 mg PO DAILY [facility] Last Admin: 09/20/21 08:55 Dose: 81 mg Documented by: Atorvastatin Calcium (Atorvastatin 20 Mg Tab) 20 mg PO HS [facility] Last Admin: 09/20/21 19:41 Dose: 20 mg Documented by: Benzocaine/Menthol (Benzocaine/Menthol Lozeng 1 Each Lozenge) 1 each MUCOUS MEM Q6HR PRN PRN Reason: Sore Throat Last Admin: 09/20/21 15:54 Dose: 1 each Documented by: Doxazosin Mesylate (Doxazosin 4 Mg Tab) 4 mg PO [facility] Last Admin: 09/20/21 19:41 Dose: 4 mg Documented by: Fluoxetine HCl (Fluoxetine Hcl 20 Mg Cap) 40 mg PO DAILY [facility] Last Admin: 09/20/21 08:55 Dose: 40 mg Documented by: Gabapentin (Gabapentin 400 Mg Cap) 400 mg PO QID [facility] Last Admin: 09/20/21 19:41 Dose: 400 mg Documented by: Hydromorphone HCl (Hydromorphone 1 Mg/Ml 1 Ml Syringe) 1 mg IVP Q3HR PRN PRN Reason: Severe Pain Last Admin: 09/20/21 19:47 Dose: 1 mg Documented by: Piperacillin Sod/Tazobactam (Sod 3.375 gm/ Sodium Chloride) 100 mls @ 25 mls/hr IVPB Q8HR [facility]; Protocol Last Admin: 09/20/21 17:38 Dose: 25 mls/hr Documented by: Lactated Ringer's (Lactated Ringers) 1,000 mls @ 125 mls/hr IV .Q8H [facility] Last Admin: 09/20/21 17:40 Dose: 125 mls/hr Documented by: Levothyroxine Sodium (Levothyroxine 75 Mcg Tab) 150 mcg PO DAILY@0630 [facility] Last Admin: 09/20/21 06:04 Dose: 150 mcg Documented by: Losartan Potassium (Losartan 50 Mg Tab) 50 mg PO DAILY [facility] Last Admin: 09/20/21 08:56 Dose: 50 mg Documented by: Meclizine HCl (Meclizine 25 Mg Tab) 25 mg PO BID PRN PRN Reason: DIZZINESS Naloxone HCl (Naloxone 0.4 Mg/Ml 1 Ml Vial) 0.2 mg IV Q2M PRN PRN Reason: Opioid Reversal Ondansetron HCl (Ondansetron 4 Mg/2 Ml Vial) 4 mg IVP Q8HR PRN PRN Reason: Nausea And Vomiting Last Admin: 09/19/21 13:48 Dose: 4 mg Documented by: Pantoprazole Sodium (Pantoprazole 40 Mg/10 Ml Vial) 40 mg IV DAILY [facility] Last Admin: 09/20/21 08:56 Dose: 40 mg Documented by: Tramadol HCl (Tramadol 50 Mg Tab) 50 mg PO Q6HR PRN PRN Reason: Breakthrough Pain Objective - Vital Signs Vital signs: Vital Signs Temp 99.9 F H 09/20/21 19:46 Pulse 91 09/20/21 19:52 Resp 17 09/20/21 19:52 BP 145/76 09/20/21 19:46 Pulse Ox 96 09/20/21 19:46 Intake & Output 09/20/21 09/20/21 09/21/21 06:59 18:59 06:59 Intake Total 354 Output Total 650 1410 200 Balance -650 -1056 -200 Intake: Oral 354 Output: Drainage 50 10 Right Abdomen 50 10 Urine 600 1400 200 Other: Voiding Method Toilet Urinal Urinal # Voids 1 1 1 - Labs CBC & Chem 7: 09/20/21 06:56 09/20/21 06:56 Labs: Abnormal Lab Results - Last 24 Hours (Table) 09/20/21 09/20/21 Range/Units 06:56 06:56 WBC 25.39 H (4.50-10.00) X 10*3/uL RBC 4.26 L (4.40-5.60) X 10*6/uL Immature Gran # 0.15 H (0.00-0.04) X 10*3/uL Neutrophils # 17.97 H (1.80-7.70) X 10*3/uL Lymphocytes # 5.54 H (0.90-5.00) X 10*3/uL Monocytes # 1.70 H (0.20-1.00) X 10*3/uL Eosinophils # 0 L (0.04-0.35) X 10*3/uL Glucose 130 H (70-110) mg/dL Total Protein 5.5 L (6.2-8.2) g/dL Albumin 3.5 L (3.8-4.9) g/dL Microbiology - Last 24 Hours (Table) 09/18/21 15:50 Blood Culture - Preliminary Blood No Growth after 48 hours 09/18/21 15:45 Blood Culture - Preliminary Blood No Growth after 48 hours
[2021-09-21] MEDS: LACTATED RINGERS 1,000 ML IV SCH ×3 (00:58→15:19)
[2021-09-21] MEDS: LEVOTHYROXINE 75 MCG TAB PO SCH (05:45)
[2021-09-21] MEDS: FLUoxetine HCL 20 MG CAP PO SCH (08:35)
[2021-09-21] MEDS: LOSARTAN 50 MG TAB PO SCH (08:36)
[2021-09-21] MEDS: ASPIRIN 81 MG PO SCH (08:36)
[2021-09-21] MEDS: PANTOPRAZOLE 40 MG/10 ML VIAL IV SCH (08:36)
[2021-09-21] MEDS: GABAPENTIN 400 MG CAP PO SCH ×4 (08:36→21:07)
[2021-09-21] MEDS: PIPERACILLIN-TAZOBACTAM 3.375 GM in SODIUM CHLORIDE 0.9% 100 ML IVPB SCH ×3 (08:37→23:21)
[2021-09-21] MEDS: HYDROmorphone 1 MG/ML 1 ML SYRINGE IVP PRN (08:45)
[2021-09-21] MEDS ORDERED: CYCLOBENZAPRINE 5 MG TAB PO PRN (10:14)
[2021-09-21] MEDS ORDERED: HYDROcodone/APAP 5-325MG 1 EACH TAB PO PRN (10:18)
[2021-09-21 12:20] LABS: WBC 13.2 k/uL (3.8-10.6)
[2021-09-21 12:21] LABS: HCT 41.1 % (39.0-53.0); HGB 13.8 gm/dL (13.0-17.5); MCH 32.7 pg (25.0-35.0); MCHC 33.5 g/dL (31.0-37.0); MCV 97.5 fL (80.0-100.0); Mean Platelet Volume 7.4; Platelet Count 309 k/uL (150-450); RBC 4.22 m/uL (4.30-5.90); RDW 13.6 % (11.5-15.5)
[2021-09-21 12:23] LABS: ALT 36 U/L (4-49); AST 24 U/L (17-59); African American GFR (CKD) 80 (>60 ml/min/1.73 sqM); Albumin 3.2 g/dL (3.5-5.0); Albumin/Globulin Ratio 1.2; Alkaline Phosphatase 73 U/L (38-126); Anion Gap 7 mmol/L; Blood Urea Nitrogen 15 mg/dL (9-20); Calcium 8.5 mg/dL (8.4-10.2); Carbon Dioxide 27 mmol/L (22-30); Chloride 103 mmol/L (98-107); Globulin 2.7 g/dL; Glucose 108 mg/dL (74-99); Non-African American GFR(CKD) 69 (>60 ml/min/1.73 sqM); Potassium 3.8 mmol/L (3.5-5.1); Sodium 137 mmol/L (137-145); Total Bilirubin 0.7 mg/dL (0.2-1.3); Total Protein 5.9 g/dL (6.3-8.2)
--- NOTE | 2021-09-21 16:12 | P.PN ---
Subjective Progress Note Date: 09/21/21 Patient status post cholecystectomy. With the bedside. Patient white count still elevated. No fevers or chills. Reports intermittent and mild back pain including abdominal pain. He is tolerating regular diet this morning. No bowel movement. We'll try lactulose and milk of magnesia. Continue IV antibiotics. Repeat CBC. Objective - Vital Signs Vital signs: Vital Signs Temp 98.6 F 09/21/21 07:00 Pulse 94 09/21/21 14:00 Resp 16 09/21/21 14:00 BP 165/76 09/21/21 07:00 Pulse Ox 96 09/21/21 07:00 Intake & Output 09/20/21 09/21/21 09/21/21 18:59 06:59 18:59 Intake Total 354 1180 Output Total 1410 210 15 Balance -1056 -210 1165 Intake: Oral 354 1180 Output: Drainage 10 10 15 Right Abdomen 10 10 15 Urine 1400 200 Other: Voiding Method Toilet Urinal Toilet Urinal Urinal # Voids 1 1 4 - Labs CBC & Chem 7: 09/21/21 11:30 09/21/21 11:30 Labs: Abnormal Lab Results - Last 24 Hours (Table) 09/21/21 09/21/21 Range/Units 11:30 11:30 WBC 13.2 H (3.8-10.6) k/uL RBC 4.22 L (4.30-5.90) m/uL Glucose 108 H (74-99) mg/dL Total Protein 5.9 L (6.3-8.2) g/dL Albumin 3.2 L (3.5-5.0) g/dL Microbiology - Last 24 Hours (Table) 09/18/21 15:50 Blood Culture - Preliminary Blood No Growth after 48 hours 09/18/21 15:45 Blood Culture - Preliminary Blood No Growth after 48 hours
[2021-09-21] MEDS ORDERED: LACTULOSE 20 GM/30 ML CUP PO ONE (16:13)
--- NOTE | 2021-09-21 16:45 | P.PN ---
Subjective Progress Note Date: 09/21/21 Patient seen in follow-up, at bedside. WBC down to 13. He follows with [facility] for CLL. Objective - Vital Signs Vital signs: Vital Signs Temp 98.4 F 09/21/21 15:00 Pulse 104 H 09/21/21 15:00 Resp 18 09/21/21 15:00 BP 132/81 09/21/21 15:00 Pulse Ox 94 L 09/21/21 15:00 Intake & Output 09/20/21 09/21/21 09/21/21 18:59 06:59 18:59 Intake Total 354 1180 Output Total 1410 210 215 Balance -1056 -210 965 Intake: Oral 354 1180 Output: Drainage 10 10 15 Right Abdomen 10 10 15 Urine 1400 200 200 Other: Voiding Method Toilet Urinal Toilet Urinal Urinal # Voids 1 1 4 - Exam Alert and oriented NAD Lungs Coarse diminished HR RRR Abd Soft Ext no edema - Labs CBC & Chem 7: 09/21/21 11:30 09/21/21 11:30 Labs: Abnormal Lab Results - Last 24 Hours (Table) 09/21/21 09/21/21 Range/Units 11:30 11:30 WBC 13.2 H (3.8-10.6) k/uL RBC 4.22 L (4.30-5.90) m/uL Glucose 108 H (74-99) mg/dL Total Protein 5.9 L (6.3-8.2) g/dL Albumin 3.2 L (3.5-5.0) g/dL Microbiology - Last 24 Hours (Table) 09/18/21 15:50 Blood Culture - Preliminary Blood No Growth after 48 hours 09/18/21 15:45 Blood Culture - Preliminary Blood No Growth after 48 hours Assessment and Plan (1) Chronic lymphocytic leukemia Narrative/Plan: COntinues on observation with out need of treatment IgG level stable, no additional immune sosa[pport needed Current Visit: Yes Status: Acute Code(s): C91.10 - CHRONIC LYMPHOCYTIC LEUK OF B-CELL TYPE NOT ACHIEVE REMIS SNOMED Code(s): 48551301 (2) Acute cholecystitis Current Visit: Yes Status: Acute Code(s): K81.0 - ACUTE CHOLECYSTITIS SNOMED Code(s): 81478005 (3) Leukocytosis Current Visit: Yes Status: Acute Code(s): D72.829 - ELEVATED WHITE BLOOD CELL COUNT, UNSPECIFIED SNOMED Code(s): 087077950
[2021-09-21] MEDS ORDERED: MAGNESIUM HYDROXIDE 2,400 MG/10 ML CUP PO ONE (17:00)
--- NOTE | 2021-09-21 18:58 | P.PN ---
Subjective Progress Note Date: 09/21/21 (delayed charting seen at 0955) Principal diagnosis: abdominal pain Patient is a 60-year-old male with a history of hypertension, diabetes, CLL who initially presented to the ER with complaints of abdominal pain and chest pain. Patient was recently here from through with complaints of abdominal pain at that time was felt to be secondary to ileus and possible viral gastroenteritis and was subsequently discharged home. CT abdomen and pelvis demonstrated acute inflammatory changes in the right upper quadrant at the gastroduodenal junction and gallbladder. Chest x-ray demonstrated no acute process. CT of the chest demonstrated hepatic steatosis possible gallbladder hydrops but no evidence of pulmonary embolism. Patient was seen by surgery and started on IV Zosyn with plans for full cystectomy once cardiac clearance completed. Troponins remained negative. Echocardiogram showed severe concentric LVH with ejection fraction 60-65%. He was cleared by cardiology for surgery. He was also seen by oncology with CLL. Patient seen and examined at bedside. Worse back pain today, no nausea, no vomiting, passing flatus but no BM yet. No chest pain. General: non toxic, no distress Derm: warm, dry Head: atraumatic, normocephalic, symmetric Eyes: EOMI, no lid lag, anicteric sclera Mouth: no lip lesion, mucus membranes moist Cardiovascular: S1S2 reg, no murmur, positive posterior tibial pulse bilateral, Lungs: Decreased breath sounds bilateral, no rhonchi, no rales , no accessory muscle use Abdominal: soft, diffusely tender to palpation, no guarding, no appreciable organomegaly, VALENCIA drain in place Ext: no gross muscle atrophy, no edema, no contractures Neuro: CN II-XI grossly intact, no focal neuro deficits Psych: Alert, oriented, appropriate affect Assessment/plan: Acute cholecystitis with underlying sepsis -Status post laparoscopic cholecystectomy -Continue with zosyn, anticipate augmentin on discharge. -Continue with IV fluids - diet per surgery recs Acute on chornic low back pain - non responder to tramadol, transition to norco to help transition off dialudid - flexeril Chest pain -Likely related to gallbladder -Cardiology recommendations appreciated: outpatient stress test -Echocardiogram with severe LVH which will need to be followed in the outpatient setting with blood pressure optimization CLL -Oncology recommendations -Outpatient follow-up Hypothyroidism -Synthroid Hypertension -Continue current medications -Follow blood pressures DVT prophylaxis:lovenox Discussed with: Patient, nursing, family Anticipated discharge: in AM on augmentin Anticipated discharge place: home A total of 35 minutes was spent on the care of this complex patient more than 50% of the time was spent in counseling and care coordination. Active Medications Acetaminophen (Acetaminophen Tab 325 Mg Tab) 650 mg PO Q6HR PRN PRN Reason: Fever and/ or MILD Pain Last Admin: 09/20/21 19:41 Dose: 650 mg Documented by: Hydrocodone Bitart/Acetaminophen (Hydrocodone/Apap 5-325mg 1 Each Tab) 1 each PO Q6HR PRN PRN Reason: Pain Aspirin (Aspirin 81 Mg) 81 mg PO DAILY [facility] Last Admin: 09/21/21 08:36 Dose: 81 mg Documented by: Atorvastatin Calcium (Atorvastatin 20 Mg Tab) 20 mg PO [facility] Last Admin: 09/20/21 19:41 Dose: 20 mg Documented by: Benzocaine/Menthol (Benzocaine/Menthol Lozeng 1 Each Lozenge) 1 each MUCOUS MEM Q6HR PRN PRN Reason: Sore Throat Last Admin: 09/20/21 15:54 Dose: 1 each Documented by: Cyclobenzaprine HCl (Cyclobenzaprine 5 Mg Tab) 5 mg PO TID PRN PRN Reason: Muscle Spasm Last Admin: 09/21/21 12:11 Dose: 5 mg Documented by: Doxazosin Mesylate (Doxazosin 4 Mg Tab) 4 mg PO [facility] Last Admin: 09/20/21 19:41 Dose: 4 mg Documented by: Fluoxetine HCl (Fluoxetine Hcl 20 Mg Cap) 40 mg PO DAILY [facility] Last Admin: 09/21/21 08:35 Dose: 40 mg Documented by: Gabapentin (Gabapentin 400 Mg Cap) 400 mg PO QID [facility] Last Admin: 09/21/21 17:19 Dose: 400 mg Documented by: Hydromorphone HCl (Hydromorphone 1 Mg/Ml 1 Ml Syringe) 1 mg IVP Q3HR PRN PRN Reason: Severe Pain Last Admin: 09/21/21 08:45 Dose: 1 mg Documented by: Piperacillin Sod/Tazobactam (Sod 3.375 gm/ Sodium Chloride) 100 mls @ 25 mls/hr IVPB Q8HR [facility]; Protocol Last Admin: 09/21/21 15:18 Dose: 25 mls/hr Documented by: Lactated Ringer's (Lactated Ringers) 1,000 mls @ 125 mls/hr IV .Q8H [facility] Last Admin: 09/21/21 15:19 Dose: 125 mls/hr Documented by: Levothyroxine Sodium (Levothyroxine 75 Mcg Tab) 150 mcg PO DAILY@0630 [facility] Last Admin: 09/21/21 05:45 Dose: 150 mcg Documented by: Losartan Potassium (Losartan 50 Mg Tab) 50 mg PO DAILY [facility] Last Admin: 09/21/21 08:36 Dose: 50 mg Documented by: Meclizine HCl (Meclizine 25 Mg Tab) 25 mg PO BID PRN PRN Reason: DIZZINESS Naloxone HCl (Naloxone 0.4 Mg/Ml 1 Ml Vial) 0.2 mg IV Q2M PRN PRN Reason: Opioid Reversal Ondansetron HCl (Ondansetron 4 Mg/2 Ml Vial) 4 mg IVP Q8HR PRN PRN Reason: Nausea And Vomiting Last Admin: 09/19/21 13:48 Dose: 4 mg Documented by: Pantoprazole Sodium (Pantoprazole 40 Mg/10 Ml Vial) 40 mg IV DAILY [facility] Last Admin: 09/21/21 08:36 Dose: 40 mg Documented by: Tramadol HCl (Tramadol 50 Mg Tab) 50 mg PO Q6HR PRN PRN Reason: Breakthrough Pain Objective - Vital Signs Vital signs: Vital Signs Temp 98.4 F 09/21/21 15:00 Pulse 104 H 09/21/21 15:00 Resp 18 09/21/21 15:00 BP 132/81 09/21/21 15:00 Pulse Ox 94 L 09/21/21 15:00 Intake & Output 09/20/21 09/21/21 09/21/21 18:59 06:59 18:59 Intake Total 354 1180 Output Total 1410 210 215 Balance -1056 -210 965 Intake: Oral 354 1180 Output: Drainage 10 10 15 Right Abdomen 10 10 15 Urine 1400 200 200 Other: Voiding Method Toilet Urinal Toilet Urinal Urinal # Voids 1 1 4 - Labs CBC & Chem 7: 09/21/21 11:30 09/21/21 11:30 Labs: Abnormal Lab Results - Last 24 Hours (Table) 09/21/21 09/21/21 Range/Units 11:30 11:30 WBC 13.2 H (3.8-10.6) k/uL RBC 4.22 L (4.30-5.90) m/uL Glucose 108 H (74-99) mg/dL Total Protein 5.9 L (6.3-8.2) g/dL Albumin 3.2 L (3.5-5.0) g/dL Microbiology - Last 24 Hours (Table) 09/18/21 15:50 Blood Culture - Preliminary Blood No Growth after 72 hours 09/18/21 15:45 Blood Culture - Preliminary Blood No Growth after 72 hours
[2021-09-21] MEDS: ATORVASTATIN 20 MG TAB PO SCH (20:28)
[2021-09-21] MEDS: DOXAZOSIN 4 MG TAB PO SCH (20:28)
[2021-09-22] MEDS: LEVOTHYROXINE 75 MCG TAB PO SCH (05:51)
[2021-09-22 08:06] LABS: Basophils % (A) 0 %; Eosinophils # (A) 0.3 k/uL (0-0.7); Eosinophils % (A) 3 %; HCT 39.9 % (39.0-53.0); HGB 13.2 gm/dL (13.0-17.5); Lymphocytes # (A) 4.5 k/uL (1.0-4.8); Lymphocytes % (A) 40 %; Mean Platelet Volume 7.1; Monocytes # (A) 0.5 k/uL (0-1.0); Monocytes % (A) 4 %; Neutrophils # (A) 5.8 k/uL (1.3-7.7); Neutrophils % (A) 51 %; Platelet Count 327 k/uL (150-450); RBC 4.11 m/uL (4.30-5.90); RDW 13.5 % (11.5-15.5); WBC 11.4 k/uL (3.8-10.6)
[2021-09-22] MEDS: FLUoxetine HCL 20 MG CAP PO SCH (08:22)
[2021-09-22] MEDS: PANTOPRAZOLE 40 MG/10 ML VIAL IV SCH (08:23)
[2021-09-22] MEDS: LOSARTAN 50 MG TAB PO SCH (08:23)
[2021-09-22] MEDS: ASPIRIN 81 MG PO SCH (08:23)
[2021-09-22] MEDS: PIPERACILLIN-TAZOBACTAM 3.375 GM in SODIUM CHLORIDE 0.9% 100 ML IVPB SCH ×3 (08:23→23:23)
[2021-09-22] MEDS: GABAPENTIN 400 MG CAP PO SCH ×4 (08:24→21:01)
--- NOTE | 2021-09-22 14:30 | P.PN ---
Subjective Progress Note Date: 09/22/21 Principal diagnosis: Patient has CLL. He reports baseline white blood cell count between 12-14. White blood cell count 11.9 today. Recommend completion of antibiotics. Likely discharge home tomorrow. Patient REPORTS having a bowel movement. Patient to be discharged home with VALENCIA drain which is serosanguineous as to be expected. Objective - Vital Signs Vital signs: Vital Signs Temp 97.8 F 09/22/21 13:00 Pulse 73 09/22/21 13:00 Resp 19 09/22/21 13:00 BP 163/76 09/22/21 13:00 Pulse Ox 93 L 09/22/21 13:00 Intake & Output 09/21/21 09/22/21 09/22/21 18:59 06:59 18:59 Intake Total 1180 700 Output Total 215 600 Balance 965 100 Intake: Intake, IV Titration 100 Amount Piperacillin-Tazobactam 3 100 .375 gm In Sodium Chloride 0.9% 100 ml @ 25 mls/hr IVPB Q8HR [facility] Rx# :[id number] Oral 1180 600 Output: Drainage 15 Right Abdomen 15 Urine 200 600 Other: Voiding Method Toilet Toilet Toilet Urinal Urinal Urinal # Voids 4 2 - Labs CBC & Chem 7: 09/22/21 07:12 09/21/21 11:30 Labs: Abnormal Lab Results - Last 24 Hours (Table) 09/22/21 Range/Units 07:12 WBC 11.4 H (3.8-10.6) k/uL RBC 4.11 L (4.30-5.90) m/uL Microbiology - Last 24 Hours (Table) 09/18/21 15:50 Blood Culture - Preliminary Blood No Growth after 72 hours 09/18/21 15:45 Blood Culture - Preliminary Blood No Growth after 72 hours
--- NOTE | 2021-09-22 15:08 | P.PN ---
Subjective She was examined at bedside today continues to have VALENCIA drain in place. Significant serosanguineous fluid noted. Denies any chest pain, shortness of breath or palpitations. Patient did have a bowel movement and is passing gas. His discussed with RN present at bedside and family member Objective - Vital Signs Vital signs: Vital Signs Temp 97.8 F 09/22/21 13:00 Pulse 73 09/22/21 13:00 Resp 19 09/22/21 13:00 BP 163/76 09/22/21 13:00 Pulse Ox 93 L 09/22/21 13:00 Intake & Output 09/21/21 09/22/21 09/22/21 18:59 06:59 18:59 Intake Total 1180 700 Output Total 215 600 Balance 965 100 Intake: Intake, IV Titration 100 Amount Piperacillin-Tazobactam 3 100 .375 gm In Sodium Chloride 0.9% 100 ml @ 25 mls/hr IVPB Q8HR [facility] Rx# :[id number] Oral 1180 600 Output: Drainage 15 Right Abdomen 15 Urine 200 600 Other: Voiding Method Toilet Toilet Toilet Urinal Urinal Urinal # Voids 4 2 - Exam Patient seen and examined at bedside. Worse back pain today, no nausea, no vomiting, passing flatus but no BM yet. No chest pain. General: non toxic, no distress Derm: warm, dry Head: atraumatic, normocephalic, symmetric Eyes: EOMI, no lid lag, anicteric sclera Mouth: no lip lesion, mucus membranes moist Cardiovascular: S1S2 reg, no murmur, positive posterior tibial pulse bilateral, Lungs: Decreased breath sounds bilateral, no rhonchi, no rales , no accessory muscle use Abdominal: soft, diffusely tender to palpation, no guarding, no appreciable organomegaly, VALENCIA drain in place - serosanguineous fluid noted Ext: no gross muscle atrophy, no edema, no contractures Neuro: CN II-XI grossly intact, no focal neuro deficits Psych: Alert, oriented, appropriate affect - Labs CBC & Chem 7: 09/22/21 07:12 09/21/21 11:30 Labs: Abnormal Lab Results - Last 24 Hours (Table) 09/22/21 Range/Units 07:12 WBC 11.4 H (3.8-10.6) k/uL RBC 4.11 L (4.30-5.90) m/uL Microbiology - Last 24 Hours (Table) 09/18/21 15:50 Blood Culture - Preliminary Blood No Growth after 72 hours 09/18/21 15:45 Blood Culture - Preliminary Blood No Growth after 72 hours Assessment and Plan Plan: Assessment/plan: Acute cholecystitis with underlying sepsis -Status post laparoscopic cholecystectomy -Only on Zosyn recommending de-escalating to Rocephin and Flagyl. transition to oral antibiotics as per surgery on discharge. -Personally discussed with general surgery recommending discharge tomorrow jeff henriquez. Acute on chornic low back pain - non responder to tramadol, transition to norco to help transition off dialudid - flexeril Chest pain -Likely related to gallbladder -Cardiology recommendations appreciated: outpatient stress test -Echocardiogram with severe LVH which will need to be followed in the outpatient setting with blood pressure optimization CLL -Oncology recommendations -Outpatient follow-up Hypothyroidism -Synthroid Hypertension -Continue current medications -Follow blood pressures DVT prophylaxis:lovenox Discussed with: Patient, nursing, family Anticipated discharge: in AM Once cleared by surgery. The recommending to monitor for another 24 hours. Patient has a VALENCIA drain in place. Anticipated discharge place: home
[2021-09-22] MEDS: DOXAZOSIN 4 MG TAB PO SCH (21:01)
[2021-09-22] MEDS: ATORVASTATIN 20 MG TAB PO SCH (21:01)
[2021-09-23 00:18] VITALS: RESP 18
[2021-09-23] MEDS: LEVOTHYROXINE 75 MCG TAB PO SCH (05:32)
[2021-09-23 05:38] VITALS: BP 167/68; PULSE 85; TEMP 98.3
[2021-09-23] MEDS: LOSARTAN 50 MG TAB PO SCH (08:44)
[2021-09-23] MEDS: GABAPENTIN 400 MG CAP PO SCH ×2 (08:44→12:48)
[2021-09-23] MEDS: ASPIRIN 81 MG PO SCH (08:44)
[2021-09-23] MEDS: FLUoxetine HCL 20 MG CAP PO SCH (08:44)
[2021-09-23] MEDS: PIPERACILLIN-TAZOBACTAM 3.375 GM in SODIUM CHLORIDE 0.9% 100 ML IVPB SCH (08:45)
[2021-09-23] MEDS: PANTOPRAZOLE 40 MG/10 ML VIAL IV SCH (08:53)
[2021-09-23 09:35] LABS: Basophils % (A) 0 %; Eosinophils # (A) 0.3 k/uL (0-0.7); Eosinophils % (A) 2 %; HCT 42.7 % (39.0-53.0); HGB 13.8 gm/dL (13.0-17.5); Lymphocytes # (A) 4.6 k/uL (1.0-4.8); Lymphocytes % (A) 36 %; MCH 31.8 pg (25.0-35.0); MCHC 32.4 g/dL (31.0-37.0); MCV 98.1 fL (80.0-100.0); Mean Platelet Volume 7.2; Monocytes # (A) 0.6 k/uL (0-1.0); Monocytes % (A) 5 %; Neutrophils # (A) 6.9 k/uL (1.3-7.7); Neutrophils % (A) 55 %; Platelet Count 357 k/uL (150-450); RBC 4.36 m/uL (4.30-5.90); WBC 12.6 k/uL (3.8-10.6)
--- NOTE | 2021-09-23 10:57 | P.PN ---
Subjective Progress Note Date: 09/23/21 Patient is doing well today, has no further complaints. White blood cell count did marginally increase from yesterday's value, however, patient is clinically improved and elevated white blood cell count is expected in the context of CLL. Approximately 30 mL of output from the VALENCIA drain in the abdomen. From my perspective, patient is medically stable for discharge. Medical med rec has been completed, however, I will defer to the surgical team regarding antibiotics and pain control. Gen: awake, alert HEENT: normocephalic, atraumatic, good hearing acuity, moist mucous membranes Resp: good air exchange, breathing comfortably with no accessory muscle use CVS: good distal perfusion x 4, GI: soft, NTTP, ND : no SPT, no CVAT, calvillo catheter not present MSK: no pitting edema, no clubbing Neuro: non-focal, moving all extremities Psych: cooperative, euthymic mood Assessment/plan: Acute cholecystitis with underlying sepsis -Status post laparoscopic cholecystectomy -Only on Zosyn recommending de-escalating to Rocephin and Flagyl. transition to oral antibiotics as per surgery on discharge. -Personally discussed with general surgery recommending discharge tomorrow morning. - Acute on chornic low back pain - non responder to tramadol, transition to norco to help transition off dialudid - flexeril Chest pain -Likely related to gallbladder -Cardiology recommendations appreciated: outpatient stress test -Echocardiogram with severe LVH which will need to be followed in the outpatient setting with blood pressure optimization CLL -Oncology recommendations -Outpatient follow-up Hypothyroidism -Synthroid Hypertension -Continue current medications -Follow blood pressures DVT prophylaxis:lovenox Discussed with: Patient, nursing, family Anticipated discharge: in AM Once cleared by surgery. The recommending to monitor for another 24 hours. Patient has a VALENCIA drain in place. Anticipated discharge place: home Objective - Vital Signs Vital signs: Vital Signs Temp 98.3 F 09/23/21 05:00 Pulse 85 09/23/21 05:00 Resp 18 09/23/21 05:00 BP 167/68 09/23/21 05:00 Pulse Ox 94 L 09/23/21 05:00 Intake & Output 09/22/21 09/23/21 09/23/21 18:59 06:59 18:59 Intake Total 800 600 Output Total 30 1400 Balance 770 -800 Intake: Intake, IV Titration 200 100 Amount Piperacillin-Tazobactam 3 200 100 .375 gm In Sodium Chloride 0.9% 100 ml @ 25 mls/hr IVPB Q8HR [facility] Rx# :[id number] Oral 600 500 Output: Drainage 30 Right Abdomen 30 Urine 1400 Other: Voiding Method Toilet Toilet Urinal Urinal # Voids 4 - Labs CBC & Chem 7: 09/23/21 08:59 09/21/21 11:30 Labs: Abnormal Lab Results - Last 24 Hours (Table) 09/23/21 Range/Units 08:59 WBC 12.6 H (3.8-10.6) k/uL Microbiology - Last 24 Hours (Table) 09/18/21 15:50 Blood Culture - Preliminary Blood No Growth after 96 hours 09/18/21 15:45 Blood Culture - Preliminary Blood No Growth after 96 hours
--- NOTE | 2021-09-23 12:42 | P.DS ---
Providers Date of admission: 09/20/21 10:29 Expected date of discharge: 09/23/21 Attending physician: Meliton Elder MD Consults: 09/18/21 13:52 Consult Physician Urgent Consulting Provider: Jacek Paniagua Consult Reason/Comments: acute cholecystitis Do you want consulting provider notified?: Already Contacted 09/18/21 13:53 Consult Physician Urgent Consulting Provider: [facility] Consult Reason/Comments: acute chest pain Do you want consulting provider notified?: Yes 09/19/21 11:07 Consult Physician Routine Consulting Provider: Get Maguire Consult Reason/Comments: Neutrophilic Leukocytosis Do you want consulting provider notified?: Yes Primary care physician: [facility] Hospital Course: Acute cholecystitis with underlying sepsis Acute on chornic low back pain Chest pain -Cardiology recommendations appreciated: outpatient stress test -Echocardiogram with severe LVH which will need to be followed in the outpatient setting with blood pressure optimization CLL -Oncology recommendations -Outpatient follow-up Hypothyroidism Hypertension Patient is a 61-year-old male with a past medical she significant for essential hypertension, hyperlipidemia and anxiety/depression who presented to the hospital complaining of epigastric/chest pain. In the emergency department his vital signs and stable temperature 99.9. CBC reviewed showing leukocytosis 21.7, BMP unremarkable except mild transaminitis hector to 52. Cardiac troponin negative 3. EKG reviewed. Computed tomography scan of the abdomen and pelvis reviewed and showed mild inflammatory changes involving the right upper quadrant as well as gallbladder. Surgery consulted and patient underwent cholecystectomy with VALENCIA drain on 09/19, and continuation of the abx started on 09/18. His WBC and drain output was followed closely. He was asymptomatic on day of discharge, and released with prescriptions for pain medicine, antibiotics. He was d/c'd with VALENCIA drain with instructions to f/u with surgery and keep track of output. I spent 32 minutes coordinating this complex discharge Gen: awake, alert HEENT: normocephalic, atraumatic, good hearing acuity, moist mucous membranes Resp: good air exchange, breathing comfortably with no accessory muscle use CVS: good distal perfusion x 4, GI: soft, NTTP, ND : no SPT, no CVAT, calvillo catheter not present MSK: no pitting edema, no clubbing Neuro: non-focal, moving all extremities Psych: cooperative, euthymic mood Patient Condition at Discharge: Good Plan - Discharge Summary Discharge Rx Participant: No New Discharge Prescriptions: New Levofloxacin [Levaquin] 500 mg PO DAILY 7 Days #7 tab Acetaminophen Tab [Tylenol] 650 mg PO Q6HR PRN tab PRN Reason: Fever and/ or MILD Pain traMADol HCl [Ultram] 50 mg PO Q6H PRN #10 tab PRN Reason: Pain Continue Naproxen 500 mg PO BID PRN PRN Reason: Pain Losartan [Cozaar] 50 mg PO DAILY Cholecalciferol [Vitamin D3 (25 Mcg = 1000 Iu)] 50 mcg PO DAILY Cetirizine HCl 10 mg PO DAILY FLUoxetine HCL [PROzac] 40 mg PO DAILY Atorvastatin [Lipitor] 20 mg PO HS Gabapentin [Neurontin] 400 mg PO QID Meclizine [Antivert] 25 mg PO BID PRN PRN Reason: DIZZINESS Tadalafil [Cialis] 5 mg PO DAILY Terazosin [Hytrin] 4 mg PO HS Omeprazole 20 mg PO DAILY diazePAM [Valium] 5 mg PO BID PRN PRN Reason: Anxiety Cyclobenzaprine [Flexeril] 10 mg PO DAILY PRN PRN Reason: Muscle Pain Zinc 50 mg PO DAILY Vitamin B Complex 1 cap PO DAILY Aspirin EC [Ecotrin Low Dose] 81 mg PO DAILY Ascorbic Acid [Vitamin C] 500 mg PO DAILY Levothyroxine Sodium [Synthroid] 150 mcg PO DAILY Vardenafil HCl [Levitra] 20 mg PO DAILY PRN PRN Reason: E.D. Carboxymethylcellulose Sodium [Thera Tears] 1 drop BOTH EYES QID Discharge Medication List Ascorbic Acid [Vitamin C] 500 mg PO DAILY 08/17/21 [History] Aspirin EC [Ecotrin Low Dose] 81 mg PO DAILY 08/17/21 [History] Atorvastatin [Lipitor] 20 mg PO HS 08/17/21 [History] Cetirizine HCl 10 mg PO DAILY 08/17/21 [History] Cholecalciferol [Vitamin D3 (25 Mcg = 1000 Iu)] 50 mcg PO DAILY 08/17/21 [History] Cyclobenzaprine [Flexeril] 10 mg PO DAILY PRN 08/17/21 [History] FLUoxetine HCL [PROzac] 40 mg PO DAILY 08/17/21 [History] Gabapentin [Neurontin] 400 mg PO QID 08/17/21 [History] Levothyroxine Sodium [Synthroid] 150 mcg PO DAILY 08/17/21 [History] Losartan [Cozaar] 50 mg PO DAILY 08/17/21 [History] Naproxen 500 mg PO BID PRN 08/17/21 [History] Omeprazole 20 mg PO DAILY 08/17/21 [History] Terazosin [Hytrin] 4 mg PO HS 08/17/21 [History] Vardenafil HCl [Levitra] 20 mg PO DAILY PRN 08/17/21 [History] Vitamin B Complex 1 cap PO DAILY 08/17/21 [History] Zinc 50 mg PO DAILY 08/17/21 [History] diazePAM [Valium] 5 mg PO BID PRN 08/17/21 [History] Carboxymethylcellulose Sodium [Thera Tears] 1 drop BOTH EYES QID 09/18/21 [History] Meclizine [Antivert] 25 mg PO BID PRN 09/18/21 [History] Tadalafil [Cialis] 5 mg PO DAILY 09/18/21 [History] Levofloxacin [Levaquin] 500 mg PO DAILY 7 Days #7 tab 09/19/21 [Rx] traMADol HCl [Ultram] 50 mg PO Q6H PRN #10 tab 09/19/21 [Rx] Acetaminophen Tab [Tylenol] 650 mg PO Q6HR PRN tab 09/23/21 [Rx] Follow up Appointment(s)/Referral(s): Jacek Paniagua MD [Medical Doctor] - 2 Weeks [facility] [Primary Care Provider] - 1-2 days Activity/Diet/Wound Care/Special Instructions: Keep a log of VALENCIA drain output and bring with you to your follow-up appointment Milk/strip drains 2-3 times a day No lifting over 10 pounds You may shower. No soaking or tub baths for 2 weeks Very light activity until you are reevaluated at your follow up appointment with your surgeon Discharge Disposition: HOME SELF-CARE
--- NOTE | 2021-09-23 13:24 | P.PN ---
Subjective Progress Note Date: 09/23/21 CHIEF COMPLAINT: Abdominal pain HISTORY OF PRESENT ILLNESS: Patient is status post laparoscopic cholecystectomy for gangrenous cholecystitis. Postop day #4. Patient reports that his pain is controlled. He denies any nausea or vomiting. He is having bowel movements. He is tolerating diet. He is afebrile. White count did go up from 11.4-12.6. Due to his CLL patient reports that his white count ranges from 12-14 normally. PHYSICAL EXAM: VITAL SIGNS: Reviewed GENERAL: Well-developed in no acute distress. HEENT: No sclera icterus. Extraocular movements grossly intact. Moist buccal mucosa. Head is atraumatic, normocephalic. Hears conversational speech. No nasal drainage. NECK: Supple without lymphadenopathy. CHEST: Non-labored respirations and equal bilateral excursions. CARDIOVASCULAR: Palpable 2+ radial pulses. ABDOMEN: Soft. Nondistended. Nontender. Incision sites clean dry and intact. VALENCIA drain with 30ml serosanguineous output MUSCULOSKELETAL: No clubbing or cyanosis. NEUROLOGIC: No focal or lateralizing signs. Cranial nerves II through XII grossly intact. PSYCH: Appropriate affect. Alert and oriented to person, place and time. SKIN: Well perfused. Good skin turgor. ASSESSMENT: 1. Acute gangrenous cholecystitis with hydrops status post laparoscopic cholec ystectomy 2. History of CLL PLAN: -Okay to discharge from surgical standpoint -Discharged home with antibiotics -Patient follow up with Dr. Paniagua in office -Discharged with VALENCIA drain [employer] note has been reviewed by physician. Signing provider agrees with the documented findings, assessment, and plan of care. Objective - Vital Signs Vital signs: Vital Signs Temp 98.3 F 09/23/21 05:00 Pulse 85 09/23/21 05:00 Resp 18 09/23/21 05:00 BP 167/68 09/23/21 05:00 Pulse Ox 94 L 09/23/21 05:00 Intake & Output 09/22/21 09/23/21 09/23/21 18:59 06:59 18:59 Intake Total 800 600 Output Total 30 1400 Balance 770 -800 Intake: Intake, IV Titration 200 100 Amount Piperacillin-Tazobactam 3 200 100 .375 gm In Sodium Chloride 0.9% 100 ml @ 25 mls/hr IVPB Q8HR [facility] Rx# :[id number] Oral 600 500 Output: Drainage 30 Right Abdomen 30 Urine 1400 Other: Voiding Method Toilet Toilet Toilet Urinal Urinal Urinal # Voids 4 - Labs CBC & Chem 7: 09/23/21 08:59 09/21/21 11:30 Labs: Abnormal Lab Results - Last 24 Hours (Table) 09/23/21 Range/Units 08:59 WBC 12.6 H (3.8-10.6) k/uL Microbiology - Last 24 Hours (Table) 09/18/21 15:50 Blood Culture - Preliminary Blood No Growth after 96 hours 09/18/21 15:45 Blood Culture - Preliminary Blood No Growth after 96 hours
== END 2021-09-23 15:18 | disposition home or self-care (01) | DRG 854 ==
LOC: EC 09:17 → 6NMEDSUR 13:38 → OBSVTOIN 09-20 10:29 → 5NMEDONC 09-21 20:15
PROVIDERS: ADMIT Internal Medicine; ATTEND Internal Medicine
PROC: 0FT44ZZ Resection of Gallbladder, Percutaneous Endoscopic Approach (ICD-10-PCS; principal; 2021-09-19 07:30)
DX: A41.9 Sepsis, unspecified organism (principal); C91.10 Chronic lymphocytic leukemia of B-cell type not having achieved remission; K81.0 Acute cholecystitis; K82.1 Hydrops of gallbladder; Z20.822 Contact with and (suspected) exposure to COVID-19; E03.9 Hypothyroidism, unspecified; E11.9 Type 2 diabetes mellitus without complications; E78.5 Hyperlipidemia, unspecified; F32.A Depression, unspecified; F41.0 Panic disorder [episodic paroxysmal anxiety]; F43.10 Post-traumatic stress disorder, unspecified; I10 Essential (primary) hypertension; G47.33 Obstructive sleep apnea (adult) (pediatric); K82.A1 Gangrene of gallbladder in cholecystitis; K76.0 Fatty (change of) liver, not elsewhere classified; Z79.82 Long term (current) use of aspirin; Z79.890 Hormone replacement therapy; Z79.899 Other long term (current) drug therapy; Z88.5 Allergy status to narcotic agent; Z88.8 Allergy status to other drugs, medicaments and biological substances; Z98.890 Other specified postprocedural states
CPT/HCPCS: 36415; 71046; 71275; 74177; 76705; 80053; 82784; 83690; 83735; 83880; 84484; 85025; 85027; 85610; 85730; 87040; 87635; 88304; 93005; 93306; 96365; 96375; 96376; 99285

== ENCOUNTER 2021-12-02 09:00 | Day surgery (SDC) | payer OTHER ==
[2021-11-28 15:36] VITALS: BMI 35.9
--- NOTE | 2021-12-02 07:49 | P.GSHP ---
History of Present Illness H&P Date: 12/02/21 CHIEF COMPLAINT: GERD and colon screen HISTORY OF PRESENT ILLNESS: The patient is a 61-year-old male who presents with gastroesophageal reflux disease and need for colon screen. Upper and lower endoscopy were offered for further evaluation and management. PAST MEDICAL HISTORY: Please see list. PAST SURGICAL HISTORY: Please see list. MEDICATIONS: Please see list. ALLERGIES: Please see list. SOCIAL HISTORY: No illicit drug use FAMILY HISTORY: No reports of Crohn disease or ulcerative colitis. REVIEW OF ORGAN SYSTEMS: CONSTITUTIONAL: No reports of fevers or chills. GI: Denies any blood in stools or constipation. PHYSICAL EXAM: VITAL SIGNS: Stable GENERAL: Well-developed pleasant in no acute distress. HEENT: No scleral icterus. Extraocular movements grossly intact. Moist buccal mucosa. NECK: Supple without lymphadenopathy. CHEST: Unlabored respirations. Equal bilateral excursions. CARDIOVASCULAR: Regular rate and rhythm. Distal 2+ pulses. ABDOMEN: Soft, nondistended. MUSCULOSKELETAL: No clubbing, cyanosis, or edema. ASSESSMENT: 1. Gastroesophageal reflux disease 2. Colon screen. PLAN: 1. Recommend proceeding with an upper and lower endoscopy Past Medical History Past Medical History: Cancer, GERD/Reflux, Hyperlipidemia, Hypertension Additional Past Medical History / Comment(s): Sleep apnea with c-pap machine., palpitations., hx of precancerous colon polyps., DDD with back & neck pain., hx stomach ulcers., COVID Apr 2021., neuropathy feet., states abnormal T-cells that may develop into Leukemia., hearing loss., OAB History of Any Multi-Drug Resistant Organisms: None Reported Past Surgical History: Back Surgery, Cholecystectomy Additional Past Surgical History / Comment(s): 2012 herniated disc repair. Past Anesthesia/Blood Transfusion Reactions: No Reported Reaction Past Psychological History: Panic Disorder, PTSD Additional Psychological History / Comment(s): service dog for panic attacks. Smoking Status: Former smoker Past Alcohol Use History: Rare Additional Past Alcohol Use History / Comment(s): smoked pipe for 1 year in the Past Drug Use History: None Reported - Past Family History familyi Family Medical History: No Reported History Medications and Allergies Home Medications Medication Instructions Recorded Confirmed Type Ascorbic Acid [Vitamin C] 2,000 mg PO DAILY 08/17/21 11/28/21 History Atorvastatin [Lipitor] 40 mg PO HS 08/17/21 11/28/21 History FLUoxetine HCL [PROzac] 20 mg PO BID 08/17/21 11/28/21 History Gabapentin [Neurontin] 400 mg PO BID 08/17/21 11/28/21 History Levothyroxine Sodium [Synthroid] 150 mcg PO DAILY 08/17/21 11/28/21 History Losartan [Cozaar] 50 mg PO DAILY 08/17/21 11/28/21 History Zinc 50 mg PO DAILY 08/17/21 11/28/21 History diazePAM [Valium] 5 mg PO DIRECTED PRN 08/17/21 11/28/21 History Tadalafil [Cialis] 5 mg PO DAILY 09/18/21 11/28/21 History Garlic (Unknown Dose) 1 tab PO DAILY 11/28/21 History Glucosamine/Chondr Vela A Sod [Osteo 1 each PO DAILY 11/28/21 11/28/21 History Bi-Flex Caplet] Multivitamins, Thera [Multivitamin 1 tab PO DAILY 11/28/21 11/28/21 History (formulary)] Pantoprazole [Protonix] 40 mg PO DAILY@1200 11/28/21 11/28/21 History Ubidecarenone [Co Q-10] 200 mg PO DAILY 11/28/21 11/28/21 History Allergies Allergy/AdvReac Type Severity Reaction Status Date / Time niacin Allergy Anaphylaxis Verified 11/28/21 14:57 codeine AdvReac Nausea & Verified 11/28/21 14:57 Vomiting
[~2021-12-02 09:00] MED LIST: LACTATED RINGERS 1,000 ML IV SCH; LIDOCAINE 1% (10MG/ML) FOR IV START INTRADERMA PRN
[2021-12-02 09:39] VITALS: TEMP 97.2
[2021-12-02] MEDS ORDERED: LIDOCAINE 2% INJ 20 MG/ML (2 ML VIAL) ONE (10:06)
[2021-12-02] MEDS ORDERED: PROPOFOL 10 MG/ML 20 ML VIAL IV ONE (10:06)
--- NOTE | 2021-12-02 10:16 | P.PCN ---
Date of Procedure: 12/02/21 Description of Procedure: PREOPERATIVE DIAGNOSIS: History of gastric ulcer Gastroesophageal reflux disease. POSTOPERATIVE DIAGNOSIS: Gastroesophageal reflux disease. Diaphragmatic hiatal hernia OPERATION: Esophagogastroduodenoscopy with biopsies along antrum. SURGEON: Sherita Somers MD ANESTHESIA: MAC. INDICATIONS: The patient is a 61-year-old male who presents with history of gastric ulcers and reflux disease. Benefits and risks of the procedure were described. Informed consent was obtained. DESCRIPTION: The patient was brought into the endoscopy suite and laid in the left lateral decubitus position. An Olympus gastroscope was passed along the posterior oropharynx down to the distal esophagus where the squamocolumnar junction was encountered at 43 cm from the incisors. The stomach was entered and no bile reflux was found. Additional findings are listed below. Biopsies with cold forc eps were obtained of the antrum. The first through third portion of the duodenum was examined. Retroflexion of the scope confirmed Hill grade 2 lower esophageal valve. The squamocolumnar junction demonstrated LA grade B erosive esophagitis. The stomach was desufflated. The patient tolerated the procedure well. FINDINGS: Squamocolumnar junction 43 cm from the incisors. Diaphragmatic hiatus at 45 cm. Hiatal hernia, 2 cm Hill grade 2 lower esophageal valve. LA grade B erosive esophagitis. No active duodenitis. Chronic gastritis RECOMMENDATIONS: Upper endoscopy as needed.
[2021-12-02 10:33] VITALS: RESP 16
[2021-12-02 10:53] VITALS: BP 136/72; PULSE 81
--- NOTE | 2021-12-02 11:04 | P.PCN ---
Date of Procedure: 12/02/21 Description of Procedure: PREOPERATIVE DIAGNOSIS: Colonoscopy screening. Personal history high-risk colon polyps POSTOPERATIVE DIAGNOSIS: Colonoscopy screening. Sigmoid diverticulosis OPERATION: Colonoscopy to the cecum, ileocecal valve and appendiceal orifice. SURGEON: Sherita Somers MD. ANESTHESIA: MAC. INDICATIONS: The patient is a 61-year-old female who presents for colonoscopy screening. Benefits and risks were described and informed consent was obtained. DESCRIPTION OF PROCEDURE: The patient had undergone Sutab prep. The patient had been brought into the operating room and laid in the left lateral decubitus position. After adequate intravenous sedation, the rectum was examined with 2% lidocaine jelly. No external hemorrhoids were encountered. The prostate was unremarkable. The rectal tone was within normal limits. No lesions were palpated in the rectal vault. An Olympus colonoscope was advanced until the cecum, ileocecal valve and appendiceal orifice were clearly viewed. The prep was excellent. Scattered diverticulosis was encountered. No colonic polyps were found. No evidence of focal colitis was found. Retroflexion of the scope demonstrated grade 1 internal hemorrhoids without active bleeding or inflammation. The colon was desufflated. The patient had tolerated the procedure well. Withdrawal time was over 6 minutes. FINDINGS: Aronchick preparation quality scale 1 (1-5) Internal hemorrhoids, grade 1 No external prolapsed hemorrhoids. No arteriovenous malformations. No adenomatous polyps. No focal colitis. RECOMMENDATIONS: Lower endoscopy in 3 years, 2024 Plan - Discharge Summary New Discharge Prescriptions: Continue Losartan [Cozaar] 50 mg PO DAILY FLUoxetine HCL [PROzac] 20 mg PO BID Atorvastatin [Lipitor] 40 mg PO HS Gabapentin [Neurontin] 400 mg PO BID Tadalafil [Cialis] 5 mg PO DAILY Pantoprazole [Protonix] 40 mg PO DAILY@1200 diazePAM [Valium] 5 mg PO DIRECTED PRN PRN Reason: Anxiety Zinc 50 mg PO DAILY Ascorbic Acid [Vitamin C] 2,000 mg PO DAILY Levothyroxine Sodium [Synthroid] 150 mcg PO DAILY Multivitamins, Thera [Multivitamin (formulary)] 1 tab PO DAILY Garlic (Unknown Dose) 1 tab PO DAILY Glucosamine/Chondr Vela A Sod [Osteo Bi-Flex Caplet] 1 each PO DAILY Ubidecarenone [Co Q-10] 200 mg PO DAILY Discharge Medication List Ascorbic Acid [Vitamin C] 2,000 mg PO DAILY 08/17/21 [History] Atorvastatin [Lipitor] 40 mg PO HS 08/17/21 [History] FLUoxetine HCL [PROzac] 20 mg PO BID 08/17/21 [History] Gabapentin [Neurontin] 400 mg PO BID 08/17/21 [History] Levothyroxine Sodium [Synthroid] 150 mcg PO DAILY 08/17/21 [History] Losartan [Cozaar] 50 mg PO DAILY 08/17/21 [History] Zinc 50 mg PO DAILY 08/17/21 [History] diazePAM [Valium] 5 mg PO DIRECTED PRN 08/17/21 [History] Tadalafil [Cialis] 5 mg PO DAILY 09/18/21 [History] Garlic (Unknown Dose) 1 tab PO DAILY 11/28/21 [History] Glucosamine/Chondr Vela A Sod [Osteo Bi-Flex Caplet] 1 each PO DAILY 11/28/21 [History] Multivitamins, Thera [Multivitamin (formulary)] 1 tab PO DAILY 11/28/21 [History] Pantoprazole [Protonix] 40 mg PO DAILY@1200 11/28/21 [History] Ubidecarenone [Co Q-10] 200 mg PO DAILY 11/28/21 [History] Follow up Appointment(s)/Referral(s): Sherita Somers MD [STAFF PHYSICIAN] - 12/17/21 Patient Instructions/Handouts: Hiatal Hernia (DC) Activity/Diet/Wound Care/Special Instructions: Repeat colonoscopy in 3 years, 2024 Discharge Disposition: HOME SELF-CARE
== END 2021-12-02 11:10 | disposition home or self-care (01) ==
LOC: ORWHC2ENDO 09:00
PROVIDERS: ATTEND Surgery Plastic and Reconstructive Surgery
DX: Z12.11 Encounter for screening for malignant neoplasm of colon (principal); K29.50 Unspecified chronic gastritis without bleeding; K22.10 Ulcer of esophagus without bleeding; K44.9 Diaphragmatic hernia without obstruction or gangrene; K21.9 Gastro-esophageal reflux disease without esophagitis; Z86.010 Personal history of colon polyps; K57.30 Diverticulosis of large intestine without perforation or abscess without bleeding; K64.0 First degree hemorrhoids; E78.5 Hyperlipidemia, unspecified; I10 Essential (primary) hypertension; G62.9 Polyneuropathy, unspecified; Z86.16 Personal history of COVID-19; N32.81 Overactive bladder; Z90.49 Acquired absence of other specified parts of digestive tract; Z98.890 Other specified postprocedural states; F43.10 Post-traumatic stress disorder, unspecified; F41.0 Panic disorder [episodic paroxysmal anxiety]; Z87.891 Personal history of nicotine dependence; Z79.890 Hormone replacement therapy; Z79.899 Other long term (current) drug therapy; Z88.5 Allergy status to narcotic agent; Z87.11 Personal history of peptic ulcer disease; G47.33 Obstructive sleep apnea (adult) (pediatric); E07.9 Disorder of thyroid, unspecified
CPT/HCPCS: 88305; 43239; J2704; J2001; G0105; 45378

== ENCOUNTER → 2022-04-11 | Outpatient (CLI) | payer OTHER ==
--- NOTE | 2022-04-14 11:01 | PE ---
EXAMINATION TYPE: PET CT fusion skull to thigh DATE OF EXAM: 04/11/2022 COMPARISON: CT abdomen and pelvis and CTA chest AugustJanuary 18, 2022 HISTORY: Newly diagnosed CLL . Abnormal lab results consistent with lymphoma. TECHNIQUE: Following the intravenous administration of 10.78 mCi of F-18 FDG, whole body images are performed from the skull base to the midthigh. Images are reviewed on the computer in the coronal, a xial, and sagittal planes. Reconstructed rotating images are created on independent workstation and reviewed on the computer. A localization and attenuation correction CT is performed in conjunction with the PET scan. Blood glucose level equals 119. SCAN: Initial Scan FINDINGS: Mean SUV of mediastinum: 0.64 Mean SUV liver: 2.2 SKULL BASE AND NECK: No areas of abnormal hypermetabolic uptake. CHEST, MEDIASTINUM, AND HILAR REGION: No areas of abnormal hypermetabolic uptake. ABDOMEN AND PELVIS: Liver and spleen size within normal limits. No focal areas of abnormal hypermetab olic uptake. Normal excretion is present. Mild nonspecific bowel uptake. OSSEOUS STRUCTURES: No areas of abnormal hypermetabolic uptake. OTHER CT: Small size or atrophic thyroid gland, correlate clinically. At least moderate three-vessel coronary artery calcification. Mild cardiomegaly. Cholecystectomy clips. Visualized liver hypodense suggesting fatty infiltration. Stable 4 mm nonobstr ucting right renal calculus on axial image 172. Small fat-containing umbilical hernia. Distal colonic diverticula. Prostate gland upper limits of normal in size to mildly enlarged. IMPRESSION: No abnormal hypermetabolic masses or adenopathy to suggest active lymphoma
== END | disposition home or self-care (01) ==
LOC: RADPETMAIN 06:44
PROVIDERS: ATTEND Internal Medicine Hematology & Oncology
DX: C91.10 Chronic lymphocytic leukemia of B-cell type not having achieved remission (principal)
CPT/HCPCS: 78815; A9552

== ENCOUNTER 2022-12-22 10:53 | Observation (INO) | payer OTHER ==
--- NOTE | 2022-12-22 11:31 | ED ---
General Adult HPI - General Chief complaint: Chest Pain Stated complaint: chest pressure Time Seen by Provider: 12/22/22 10:53 Source: patient Mode of arrival: ambulatory Limitations: no limitations - History of Present Illness Initial comments: Dictation was produced using [employer] dictation software. please excuse any grammatical, word or spelling errors. Chief Complaint: 62-year-old male presents emergency department for chest pain History of Present Illness: 62-year-old male presents emergency department for chest pain. Patient states that it substernal. Nonradiating. No associated nausea. Patient also complaining of secondary complaint of throat congestion. Patient has any symptoms currently. Denies any numbness and paresthesia to the arms or legs. Apparently had a bout of being unresponsive per EMS. Patient has history of dyslipidemia and hypertension. Patient also reports having had sensation prior to arrival of dizziness and sensation of spinning. The ROS documented in this emergency department record has been reviewed and confirmed by me. Those systems with pertinent positive or negative responses h ave been documented in the HPI. All other systems are other negative and/or noncontributory. - Related Data Home Medications Medication Instructions Recorded Confirmed Ascorbic Acid [Vitamin C] 2,000 mg PO DAILY 08/17/21 12/22/22 FLUoxetine HCL [PROzac] 20 mg PO DAILY 08/17/21 12/22/22 Levothyroxine Sodium [Synthroid] 150 mcg PO DAILY 08/17/21 12/22/22 Losartan [Cozaar] 50 mg PO DAILY 08/17/21 12/22/22 Zinc 50 mg PO DAILY 08/17/21 12/22/22 diazePAM [Valium] 5 mg PO BID PRN 08/17/21 12/22/22 tadalafiL [Cialis] 5 mg PO DAILY PRN 09/18/21 12/22/22 Glucosamine/Chondr Vela A Sod [Osteo 1 tab PO DAILY 11/28/21 12/22/22 Bi-Flex Caplet] Ubidecarenone [Co Q-10] 200 mg PO DAILY 11/28/21 12/22/22 Aspirin EC [Ecotrin Low Dose] 81 mg PO HS 12/22/22 12/22/22 Aspirin/Acetaminophen/Caffeine 1 tab PO BID PRN 12/22/22 12/22/22 [Excedrin Extra Strength Caplet] Atorvastatin [Lipitor] 20 mg PO HS 12/22/22 12/22/22 Cholecalciferol [Vitamin D3 (25 50 mcg PO DAILY 12/22/22 12/22/22 Mcg = 1000 Iu)] Cyclobenzaprine [Flexeril] 10 mg PO DAILY PRN 12/22/22 12/22/22 Diclofenac Sodium 50 mg PO BID PRN 12/22/22 12/22/22 Gabapentin [Neurontin] 200 mg PO BID 12/22/22 12/22/22 Garlic 1,000 mg PO DAILY 12/22/22 12/22/22 Multivit-Min/FA/Lycopen/Lutein 1 tab PO HS 12/22/22 12/22/22 [Centrum Silver Men Tablet] Omeprazole [PriLOSEC] 20 mg PO HS 12/22/22 12/22/22 Allergies Allergy/AdvReac Type Severity Reaction Status Date / Time niacin Allergy Anaphylaxis Verified 12/22/22 12:09 codeine AdvReac Nausea & Verified 12/22/22 12:09 Vomiting Review of Systems ROS Statement: Those systems with pertinent positive or pertinent negative responses have been documented in the HPI. ROS Other: All systems not noted in ROS Statement are negative. Past Medical History Past Medical History: Cancer, GERD/Reflux, Hyperlipidemia, Hypertension Additional Past Medical History / Comment(s): Sleep apnea with c-pap machine., palpitations., hx of precancerous colon polyps., DDD with back & neck pain., hx stomach ulcers., COVID Apr 2021., neuropathy feet., states abnormal T-cells that may develop into Leukemia., hearing loss., OAB History of Any Multi-Drug Resistant Organisms: None Reported Past Surgical History: Back Surgery, Cholecystectomy Additional Past Surgical History / Comment(s): 2012 herniated disc repair. Past Anesthesia/Blood Transfusion Reactions: No Reported Reaction Past Psychological History: Anxiety, Panic Disorder, PTSD Smoking Status: Former smoker Past Alcohol Use History: Rare Past Drug Use History: None Reported - Past Family History familyi Family Medical History: No Reported History General Exam - General Exam Comments Initial Comments: PHYSICAL EXAM: General Impression: Alert and oriented x3, not in acute distress HEENT: Normocephalic atraumatic, extra-ocular movements intact, pupils equal and reactive to light bilaterally, mucous membranes moist. Cardiovascular: Heart regular rate and rhythm Chest: Able to complete full sentences, no retractions, no tachypnea Abdomen: abdomen soft, non-tender, non-distended, no organomegaly Musculoskeletal: Pulses present and equal in all extremities, no peripheral edema Motor: no focal deficits noted Neurological: CN II-XII grossly intact, no focal motor or sensory deficits noted Skin: Intact with no visualized rashes Psych: Normal affect and mood Limitations: no limitations Course Vital Signs 12/22/22 12/22/22 12/22/22 10:54 11:02 11:04 Temperature 97.4 F L Pulse Rate 91 87 Pulse Rate [ 81 Dress Cap Maker ] Respiratory 18 10 L Rate Blood Pressure 110/63 110/63 O2 Sat by Pulse 91 L 92 L Oximetry 12/22/22 12/22/22 12/22/22 11:24 12:00 12:30 Temperature Pulse Rate 80 55 L 60 Pulse Rate [ Dress Cap Maker ] Respiratory 18 18 18 Rate Blood Pressure 110/63 110/63 130/68 O2 Sat by Pulse 96 99 97 Oximetry 12/22/22 12/22/22 12/22/22 13:00 13:30 14:00 Temperature Pulse Rate 58 L 60 71 Pulse Rate [ Dress Cap Maker ] Respiratory 18 18 18 Rate Blood Pressure 131/70 127/68 124/76 O2 Sat by Pulse 97 97 98 Oximetry 12/22/22 14:20 Temperature Pulse Rate 65 Pulse Rate [ Dress Cap Maker ] Respiratory 18 Rate Blood Pressure 132/61 O2 Sat by Pulse 98 Oximetry EKG Findings - EKG Comments: EKG Findings:: My EKG interpretation: Ventricular rate 91, sinus rhythm,. 160, QRS 118, QTc 446. No WA prolongation, no QTC prolongation, no ST or T-wave changes noted. . Overall, this EKG is unremarkable Medical Decision Making - Medical Decision Making Was pt. sent in by a medical professional or institution (, PA, CREDIT CARD CLERK, urgent care, hospital, or detention...) When possible be specific @ -No Did you speak to anyone other than the patient for history (EMS, parent, family, police, friend...)? What history was obtained from this source @ -No Did you review nursing and triage notes (agree or disagree)? Why? @ -I reviewed and agree with nursing and triage notes Were old charts reviewed (outside hosp., previous admission, EMS record, old EKG, old radiological studies, urgent care reports/EKG's, detention records)? Report findings @ -History and physical from November of last year shows that patient has history of GERD Differential Diagnosis (chest pain, altered mental status, abdominal pain women, abdominal pain men, vaginal bleeding, musculoskeletal, weakness, fever, dyspnea, syncope, headache, dizziness, GI bleed, back pain, seizure, CVA, palpatations, mental health)? @ -Differential Chest Pain: Stable Angina, Unstable Angina, STEMI, NSTEMI Aortic Dissection, Pneumothorax, Musculoskeletal, Esophageal Spasm GERD, Cholecystitis, Pancreatitis, Zoster, this is not meant to be an all-inclusive list. EKG interpreted by me (3pts min.). @ -See above X-rays interpreted by me (1pt min.). @ -Chest x-ray is nonacute CT interpreted by me (1pt min.). @ -None done U/S interpreted by me (1pt. min.). @ -None done What testing was considered but not performed or refused? (CT, X-rays, U/S, la bs)? Why? @ -None What meds were considered but not given or refused? Why? @ -None Did you discuss the management of the patient with other professionals (professionals i.e. , PA, CREDIT CARD CLERK, lab, RT, psych nurse, social media editor, vice president business & corporate development, teacher, ship's officer, bilingual case manager)? Give summary @ -Case discussed with hospitalist. Labs and imaging clinical presentation discussed for admission Was smoking cessation discussed for >3mins.? @ -No Was critical care preformed (if so, how long)? @ -No Were there social determinants of health that impacted care today? How? (Homelessness, low income, unemployed, alcoholism, drug addiction, transportation, low edu. Level, literacy, decrease access to med. care, senior living, rehab)? @ -No Was there de-escalation of care discussed even if they declined (Discuss DNR or withdrawal of care, Hospice)? DNR status @ -No What co-morbidities impacted this encounter? (DM, HTN, Smoking, COPD, CAD, Cancer, CVA, ARF, Chemo, Hep., AIDS, mental health diagnosis, sleep apnea, morbid obesity)? @ -None Was patient admitted / discharged? Hospital course, mention meds given and route, prescriptions, significant lab abnormalities, going to OR and other pertinent info. @ -52-year-old male presents emergency department for atypical chest pain with typical features. He does complain of nasal congestion. Mild leukocytosis of 16.2. Unlikely results of serious bacterial illness. Coag panel is unremarkable. Metabolic panel is negative. Troponins negative. Chest x-ray is nonacute. Patient given aspirin. Disposition options were discussed these agre eable with observation admission Undiagnosed new problem with uncertain prognosis? @ -No Drug Therapy requiring intensive monitoring for toxicity (Heparin, Nitro, Insulin, Cardizem)? @ -No Were any procedures done? @ -No Diagnosis/symptom? Acute, or Chronic, or Acute on Chronic? Uncomplicated (without systemic symptoms) or Complicated (systemic symptoms)? @ -1. Atypical chest pain typical features Side effects of treatment? @ -No Exacerbation, Progression, or Severe Exacerbation? @ -No Poses a threat to life or bodily function? How? (Chest pain, USA, MS, pneumonia, PE, COPD, DKA, ARF, appy, cholecystitis, CVA, Diverticulitis, Homicidal, Suicid al, threat to staff... and all critical care pts) @ -yes - Lab Data Result diagrams: 12/22/22 11:24 12/22/22 11:24 Lab Results 12/22/22 12/22/22 12/22/22 Range/Units 11:24 11:24 11:24 WBC 16.2 H (3.8-10.6) k/uL RBC 4.72 (4.30-5.90) m/uL Hgb 14.3 (13.0-17.5) gm/dL Hct 43.4 (39.0-53.0) % MCV 91.8 (80.0-100.0) fL MCH 30.3 (25.0-35.0) pg MCHC 33.0 (31.0-37.0) g/dL RDW 13.9 (11.5-15.5) % Plt Count 306 (150-450) k/uL MPV 8.0 Neutrophils % (Manual) 22 % Lymphocytes % (Manual) 74 % Monocytes % (Manual) 4 % Neutrophils # (Manual) 3.56 (1.3-7.7) k/uL Lymphocytes # (Manual) 11.99 H (1.0-4.8) k/uL Monocytes # (Manual) 0.65 (0-1.0) k/uL Nucleated RBCs 0 (0-0) /100 WBC Manual Slide Review Performed RBC Morphology Normal PT 9.8 (9.0-12.0) sec INR 0.9 (<1.2) APTT 22.4 (22.0-30.0) sec Sodium 137 (137-145) mmol/L Potassium 4.0 (3.5-5.1) mmol/L Chloride 106 (98-107) mmol/L Carbon Dioxide 23 (22-30) mmol/L Anion Gap 8 mmol/L BUN 13 (9-20) mg/dL Creatinine 1.05 (0.66-1.25) mg/dL Est GFR (CKD-EPI)AfAm 88 (>60 ml/min/1.73 sqM) Est GFR (CKD-EPI)NonAf 76 (>60 ml/min/1.73 sqM) Glucose 151 H (74-99) mg/dL Calcium 8.6 (8.4-10.2) mg/dL Magnesium 2.0 (1.6-2.3) mg/dL Total Bilirubin 0.6 (0.2-1.3) mg/dL AST 25 (17-59) U/L ALT 29 (4-49) U/L Alkaline Phosphatase 102 (38-126) U/L Troponin I (0.000-0.034) ng/mL Total Protein 6.1 L (6.3-8.2) g/dL Albumin 3.8 (3.5-5.0) g/dL 12/22/22 Range/Units 11:24 WBC (3.8-10.6) k/uL RBC (4.30-5.90) m/uL Hgb (13.0-17.5) gm/dL Hct (39.0-53.0) % MCV (80.0-100.0) fL MCH (25.0-35.0) pg MCHC (31.0-37.0) g/dL RDW (11.5-15.5) % Plt Count (150-450) k/uL MPV Neutrophils % (Manual) % Lymphocytes % (Manual) % Monocytes % (Manual) % Neutrophils # (Manual) (1.3-7.7) k/uL Lymphocytes # (Manual) (1.0-4.8) k/uL Monocytes # (Manual) (0-1.0) k/uL Nucleated RBCs (0-0) /100 WBC Manual Slide Review RBC Morphology PT (9.0-12.0) sec INR (<1.2) APTT (22.0-30.0) sec Sodium (137-145) mmol/L Potassium (3.5-5.1) mmol/L Chloride (98-107) mmol/L Carbon Dioxide (22-30) mmol/L Anion Gap mmol/L BUN (9-20) mg/dL Creatinine (0.66-1.25) mg/dL Est GFR (CKD-EPI)AfAm (>60 ml/min/1.73 sqM) Est GFR (CKD-EPI)NonAf (>60 ml/min/1.73 sqM) Glucose (74-99) mg/dL Calcium (8.4-10.2) mg/dL Magnesium (1.6-2.3) mg/dL Total Bilirubin (0.2-1.3) mg/dL AST (17-59) U/L ALT (4-49) U/L Alkaline Phosphatase (38-126) U/L Troponin I <0.012 (0.000-0.034) ng/mL Total Protein (6.3-8.2) g/dL Albumin (3.5-5.0) g/dL Disposition Clinical Impression: Chest pain Disposition: [facility]MITT[facility] IP [facility] Condition: Fair Referrals: Dale Robb DO [Doctor of Osteopathic Medicine] - 1-2 days Decision Time: 15:00
--- NOTE | 2022-12-22 11:41 | XR ---
EXAMINATION TYPE: XR chest 2V DATE OF EXAM: 12/22/2022 11:36 AM COMPARISON: Chest radiographs from 09/18/2021 TECHNIQUE: XR chest 2V Frontal and lateral views of the chest. CLINICAL INDICATION:Male, 62 years old with history of Chest Pain; FINDINGS: Lungs/Pleura: There is no evidence of pleural effusion, focal consolidation, or pneumothorax. Chroni c senescent parenchymal change. Pulmonary vascularity: Unremarkable. Heart/mediastinum: Cardiomediastinal silhouette is unremarkable. Musculoskeletal: Multiple level degenerative disc disease changes seen throughout the spine. IMPRESSION: No acute cardiopulmonary disease/process.
[2022-12-22 11:51] LABS: HCT 43.4 % (39.0-53.0); HGB 14.3 gm/dL (13.0-17.5); MCH 30.3 pg (25.0-35.0); MCV 91.8 fL (80.0-100.0); Platelet Count 306 k/uL (150-450); RBC 4.72 m/uL (4.30-5.90); RDW 13.9 % (11.5-15.5); WBC 16.2 k/uL (3.8-10.6)
[2022-12-22 11:52] LABS: ALT 29 U/L (4-49); AST 25 U/L (17-59); African American GFR (CKD) 88 (>60 ml/min/1.73 sqM); Albumin 3.8 g/dL (3.5-5.0); Alkaline Phosphatase 102 U/L (38-126); Anion Gap 8 mmol/L; Blood Urea Nitrogen 13 mg/dL (9-20); Calcium 8.6 mg/dL (8.4-10.2); Carbon Dioxide 23 mmol/L (22-30); Chloride 106 mmol/L (98-107); Glucose 151 mg/dL (74-99); Non-African American GFR(CKD) 76 (>60 ml/min/1.73 sqM); Sodium 137 mmol/L (137-145); Total Bilirubin 0.6 mg/dL (0.2-1.3); Total Protein 6.1 g/dL (6.3-8.2)
[2022-12-22 12:15] LABS: INR 0.9 (<1.2); Partial Thromboplastin Time 22.4 sec (22.0-30.0); Prothrombin Time 9.8 sec (9.0-12.0)
[2022-12-22 12:29] LABS: Lymphocytes # (M) 11.99 k/uL (1.0-4.8); Monocytes # (M) 0.65 k/uL (0-1.0); Neutrophils # (M) 3.56 k/uL (1.3-7.7); Neutrophils % (M) 22 %; Nucleated Red Blood Cells 0 /100 WBC (0-0); Total Cells Counted 100
[2022-12-22 12:31] LABS: RBC Morphology Normal
[2022-12-22] MEDS ORDERED: ASPIRIN 81 MG PO STA (15:26)
[2022-12-22] MEDS ORDERED: NITROGLYCERIN SL TABS 0.4 MG TAB SUBLINGUAL PRN (15:26)
[2022-12-22] MEDS ORDERED: ETODOLAC 200 MG CAPSULE PO PRN (20:32)
[2022-12-22] MEDS ORDERED: NON FORMULARY DRUG (Tadalafil [Cialis] 5 MG Tablet) PO PRN (20:32)
[2022-12-22] MEDS ORDERED: CYCLOBENZAPRINE 10 MG TAB PO PRN (20:32)
[2022-12-22] MEDS ORDERED: diazePAM 5 MG TAB PO PRN (20:32)
[2022-12-22] MEDS ORDERED: MULTIVITAMINS, THERA 1 EACH TAB PO SCH (21:00)
[2022-12-22] MEDS ORDERED: PANTOPRAZOLE 40 MG TABLET PO SCH (21:00)
[2022-12-22] MEDS ORDERED: ATORVASTATIN 20 MG TAB PO SCH (21:00)
[2022-12-22] MEDS: GABAPENTIN 100 MG CAP PO SCH (22:04)
[2022-12-22] MEDS: FLUoxetine HCL 20 MG CAP PO SCH (22:59)
[2022-12-23] MEDS ORDERED: LEVOTHYROXINE 75 MCG TAB PO SCH (06:30)
[2022-12-23 07:46] VITALS: BP 149/73; PULSE 62; RESP 16; TEMP 97.8
--- NOTE | 2022-12-23 08:32 | P.HPIM ---
History of Present Illness H&P Date: 12/23/22 Pt was initially admitted under [facility], we are notified of pat ient admission at 7 AM and assumed care of patient at this. 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 He presented to the emergency department on 12/21/22 with a chief complaint of chest pain. He underwent full evaluation in the emergency department. EKG was completed showing normal sinus rhythm at 91 bpm with no noted T-wave or ST abnormalities showing no signs of acute ischemia upon personal review and interpretation. Labs completed and reviewed. CBC showing leukocytosis with WBC count of 16.2, this is chronic in nature and appears to be around baseline level. Coagulation profile unremarkable. BMP unremarkable with the exception of mild hyperglycemia with glucose of 151. Liver profile unremarkable. Troponin negative at less than 0.012. Chest x-ray completed and lungs appear clear with radiology report heart negative for acute cardiopulmonary process. Patient was [facility] and transferred under our services this morning with consultation to cardiology. Reviewed troponins were trended throughout the night and all were negative at less than 0.0123 draws. Lipid profile unremarkable with the exception of low HDL of 36.80. Discussed plan of care parts and service manager, Dr. Reyes and plans to take patient for stress test later today. Patient reports he initially had a sore/scratchy throat and felt pain described as a pressure-like sensation to left anterior chest radiating into the while sitting down at rest. He states he called EMS for transfer to the hospital. Patient denied having any fevers, chills, headache, lightheadedness, dizziness, palpitations, shortness of breath, exertional dyspnea, nausea, vomiting, or diaphoresis. Patient currently reports resolution of previous reported chest pain and denies any further complaints at this time. Review of systems: Pertinent positives and negatives as discussed in HPI, a complete review of systems was performed and all other systems are negative. Physical exam: Vital signs reviewed and stable. General: Nontoxic, no distress and appears stated age. Derm: Skin warm and dry, normal coloration for ethnicity. Head: Atraumatic, normocephalic and symmetric. Eyes: EOMs intact, no lid lag, and anicteric sclera Mouth: no lip lesions, mucus membranes moist Cardiovascular: regular rate and rhythm with normal S1S2, no murmur, positive posterior tibial pulses bilaterally, and cap refill < 2 seconds. Lungs: Respirations even, regular, and unlabored on room air. Lungs CTA bilaterally, no rhonchi, no rales, no wheezing, and no accessory muscle usage. Abdominal: soft, nontender to palpation, no guarding, no appreciable organ omegaly Ext: ROM intact. No gross muscle atrophy, no edema, no contractures Neuro: Speech clear, face symmetrical and CN II-XII grossly intact with no noted focal neuro deficits Psych: Alert and oriented to person, place, time, and situation. Appropriate and pleasant affect. Assessment and Plan of Care: Chest pain, rule out acute coronary event Hypertension Hyperlipidemia -Cardiology following and discussed plan of care parts and service manager stating he is taking patient for stress echo later today. -Telemetry monitoring -Troponins negative at less than 0.0123 draws. -Cardiac diet, NPO at midnight -Continue with daily aspirin and losartan. -Lipid profile unremarkable with the exception of low HDL of 36.0. -Stress Echocardiogram to be completed, will follow up with results. Hypothyroidism Continue daily medication regimen with levothyroxine 150 g each morning. The patient is admitted with an anticipated less than 2 midnight stay for evaluation of chest pain CODE STATUS: Full code DVT prophylaxis: Heparin Discussed with: Patient, parts and service manager, and RN Anticipated discharge date: Within the next [address]: Home Patient was seen independently by Nurse Practitioner. This document was prepared using [employer] dictation software. Please allow for errors in power regulator while rare they do occur. Saurabh Carvajal NP rendered care for this patient independently, reviewed the findings and plan as documented in the note above. I did not physically speak with or examine the patient on this date. Past Medical History Past Medical History: Cancer, GERD/Reflux, Hyperlipidemia, Hypertension Additional Past Medical History / Comment(s): Sleep apnea with c-pap machine., palpitations., hx of precancerous colon polyps., DDD with back & neck pain., hx stomach ulcers., COVID Apr 2021., neuropathy feet., states abnormal T-cells that may develop into Leukemia., hearing loss., OAB History of Any Multi-Drug Resistant Organisms: None Reported Past Surgical History: Back Surgery, Cholecystectomy Additional Past Surgical History / Comment(s): 2012 herniated disc repair. Past Anesthesia/Blood Transfusion Reactions: No Reported Reaction Past Psychological History: Anxiety, Panic Disorder, PTSD Additional Psychological History / Comment(s): service dog for panic attacks. Smoking Status: Former smoker Past Alcohol Use History: Rare Additional Past Alcohol Use History / Comment(s): smoked pipe for 1 year in the s Past Drug Use History: None Reported - Past Family History familyi Family Medical History: No Reported History Medications and Allergies Home Medications Medication Instructions Recorded Confirmed Type Ascorbic Acid [Vitamin C] 2,000 mg PO DAILY 08/17/21 12/22/22 History FLUoxetine HCL [PROzac] 20 mg PO TID 08/17/21 12/22/22 History Levothyroxine Sodium [Synthroid] 150 mcg PO DAILY 08/17/21 12/22/22 History Losartan [Cozaar] 50 mg PO DAILY 08/17/21 12/22/22 History Zinc 50 mg PO DAILY 08/17/21 12/22/22 History diazePAM [Valium] 5 mg PO BID PRN 08/17/21 12/22/22 History tadalafiL [Cialis] 5 mg PO DAILY PRN 09/18/21 12/22/22 History Glucosamine/Chondr Vela A Sod [Osteo 1 tab PO DAILY 11/28/21 12/22/22 History Bi-Flex Caplet] Ubidecarenone [Co Q-10] 200 mg PO DAILY 11/28/21 12/22/22 History Aspirin EC [Ecotrin Low Dose] 81 mg PO HS 12/22/22 12/22/22 History Aspirin/Acetaminophen/Caffeine 1 tab PO BID PRN 12/22/22 12/22/22 History [Excedrin Extra Strength Caplet] Atorvastatin [Lipitor] 20 mg PO HS 12/22/22 12/22/22 History Cholecalciferol [Vitamin D3 (25 50 mcg PO DAILY 12/22/22 12/22/22 History Mcg = 1000 Iu)] Cyclobenzaprine [Flexeril] 10 mg PO DAILY PRN 12/22/22 12/22/22 History Diclofenac Sodium 50 mg PO BID PRN 12/22/22 12/22/22 History Gabapentin [Neurontin] 200 mg PO BID 12/22/22 12/22/22 History Garlic 1,000 mg PO DAILY 12/22/22 12/22/22 History Multivit-Min/FA/Lycopen/Lutein 1 tab PO HS 12/22/22 12/22/22 History [Centrum Silver Men Tablet] Omeprazole [PriLOSEC] 20 mg PO HS 12/22/22 12/22/22 History Allergies Allergy/AdvReac Type Severity Reaction Status Date / Time niacin Allergy Anaphylaxis Verified 12/22/22 12:09 codeine AdvReac Nausea & Verified 12/22/22 12:09 Vomiting Physical Exam Osteopathic Statement: *. No significant issues noted on an osteopathic structural exam other than those noted in the History and Physical/Consult. Vitals: Vital Signs Temp Pulse Pulse Pulse Resp BP BP 12/23/22 08:18 12/23/22 07:35 97.8 F 62 16 149/73 12/23/22 02:00 98.3 F 59 L 14 12/23/22 00:17 12/22/22 20:00 98.0 F 61 14 121/71 12/22/22 17:33 97.7 F 65 18 12/22/22 16:00 63 18 124/58 12/22/22 15:31 68 18 129/63 12/22/22 14:20 65 18 132/61 12/22/22 14:00 71 18 124/76 12/22/22 13:30 60 18 127/68 12/22/22 13:00 58 L 18 131/70 12/22/22 12:30 60 18 130/68 12/22/22 12:00 55 L 18 110/63 12/22/22 11:24 80 18 110/63 12/22/22 11:04 87 10 L 110/63 12/22/22 11:02 81 12/22/22 10:54 97.4 F L 91 18 110/63 BP Pulse Ox 12/23/22 08:18 95 12/23/22 07:35 97 12/23/22 02:00 145/78 95 12/23/22 00:17 98 12/22/22 20:00 98 12/22/22 17:33 137/77 97 12/22/22 16:00 98 12/22/22 15:31 97 12/22/22 14:20 98 12/22/22 14:00 98 12/22/22 13:30 97 12/22/22 13:00 97 12/22/22 12:30 97 12/22/22 12:00 99 12/22/22 11:24 96 12/22/22 11:04 92 L 12/22/22 11:02 12/22/22 10:54 91 L Intake and Output 12/22/22 12/23/22 12/23/22 22:59 06:59 14:59 Other: Voiding Method Toilet # Voids 2 2 Weight 115.212 kg Results CBC & Chem 7: 12/22/22 11:24 12/22/22 11:24 Labs: Abnormal Lab Results - Last 24 Hours (Table) 12/22/22 12/22/22 Range/Units 11:24 11:24 WBC 16.2 H (3.8-10.6) k/uL Lymphocytes # (Manual) 11.99 H (1.0-4.8) k/uL Glucose 151 H (74-99) mg/dL Total Protein 6.1 L (6.3-8.2) g/dL Thrombosis Risk Factor Assmnt - Choose All That Apply Any of the Below Risk Factors Present?: Yes Each Factor Represents 1 point: Obesity (BMI >25) Other Risk Factors: Yes Each Risk Factor Represents 2 Points: Age 61-74 years Thrombosis Risk Factor Assessment Total Risk Factor Score: 3 Thrombosis Risk Factor Assessment Level: Moderate Risk
[2022-12-23 08:43] LABS: Chol/HDL Ratio 3.53 Ratio; LDL Cholesterol,Calculated 71.2 mg/dL (0.0-131.0)
[2022-12-23] MEDS ORDERED: ASPIRIN 325 MG TAB PO SCH (09:00)
[2022-12-23] MEDS ORDERED: FLUoxetine HCL 20 MG CAP PO SCH (09:00)
[2022-12-23] MEDS ORDERED: ASCORBIC ACID 500 MG TAB PO SCH (09:00)
[2022-12-23] MEDS ORDERED: ZINC SULFATE 220 MG CAP PO SCH (09:00)
[2022-12-23] MEDS ORDERED: CHOLECALCIFEROL 25 MCG (1000 IU) TABLET PO SCH (09:00)
[2022-12-23] MEDS ORDERED: NON FORMULARY DRUG (Glucosamine/Chondr Su A Sod [Osteo Bi-Flex Caplet] 1 EACH Tablet) PO SCH (09:00)
[2022-12-23] MEDS ORDERED: LOSARTAN 50 MG TAB PO SCH (09:00)
[2022-12-23] MEDS ORDERED: NON FORMULARY DRUG (Ubidecarenone [Co Q-10] 100 MG Capsule) PO SCH (09:00)
[2022-12-23] MEDS ORDERED: NON FORMULARY DRUG (Garlic [Garlic] 1,000 MG Capsule) PO SCH (09:00)
--- NOTE | 2022-12-23 12:23 | CA ---
Stress Echo Report Yazan Morris Age: 62 Gender: M : 1960 Exam Date: 12/23/2022 10:24 Exam Location: [place] Stress Ht (in): 71 Wt (lb): 254 Ordering Physician: Radha Brown Referring Physician: [id number] Beater Engineer Helper: MARIELOS Technologist Procedure CPT: Indication: CP ICD-9 Codes: Rhythm: Patient History: Cardiac Medications: SEE CHART Medications in past 24 hours: Contrast: Stress Results Protocol: Jorgito Total dose(mL): Exercise Duration (min:sec): 7:[address] Depression (mm): Angina Score: Elkins Score: METS: 9.1 Resting HR: 99 Resting BP: 147 / 65 Peak HR: 154 Peak BP: 235 / 45 Max Predicted HR: 157 98 % Max Predicted HR Target HR: 133 Double Product: 00459 Stress Summary: BP Response: Reason for Termination: MAX EXERTION/TARGET HR Cardiac Symptoms: NO SYMPTOMS ECG Analysis Resting ECG: Stress ECG: Arrhythmia: Echo Analysis Resting Echo: Peak Echo Analysis: MEASUREMENTS (Male/Female) Normal Values CONCLUSIONS Baseline EKG revealed normal sinus rhythm with low-voltage pattern nondiagnostic Q wave in inferior leads and poor R-wave progression. Resting heart rate was 60 bpm. Peak heart rate was 154 bpm which is more than 90% of predicted maximal. Patient walked for 7-1/2 minutes on a standard Jorgito protocol. Patient did not have any anginal symptoms EKG did not reveal any new ST segment changes. There was no arrhythmia. By EKG criteria this is a negative stress test with fair exercise capacity. Baseline echo images revealed normal wall motion wall thickening of all segments At peak exercise there was good augmentation of left ventricular wall motion wall thickening of all segments suggesting there is no evidence of any stress-induced ischemia on this study. Final impression #1 fair x-rays capacity with a negative stress test by EKG criteria #2 normal stress echocardiogram without evidence of ischemia. End of dictation thank you Dr. Charla Reyes MD (Electronically Signed) Final Date: 23 December 2022 12:22
[2022-12-23] MEDS: GABAPENTIN 100 MG CAP PO SCH (13:30)
[2022-12-23] MEDS: FLUoxetine HCL 20 MG CAP PO SCH ×2 (13:31→13:35)
--- NOTE | 2022-12-23 14:06 | P.DS ---
Providers Date of admission: 12/22/22 15:27 Expected date of discharge: 12/23/22 Attending physician: Zia Song MD Consults: 12/22/22 15:26 Consult Physician Urgent Consulting Provider: Dino Aj Consult Reason/Comments: chest pain Do you want consulting provider notified?: Yes Primary care physician: [facility] Hospital Course: Discharge Diagnosis: Chest pain, acute coronary event ruled out Hypertension Hyperlipidemia Hypothyroidism CLL Hospital Course: Patient is a very pleasant 62-year-old male with a past medical history of hypertension, hyperlipidemia, hypothyroidism, GERD, obstructive sleep apnea CPAP dependent, chronic back pain with degenerative disc disease, 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 He presented to the emergency department on 12/21/22 with a chief complaint of chest pain. He underwent full evaluation in the emergency department. EKG was completed showing normal sinus rhythm at 91 bpm with no noted T-wave or ST abnormalities showing no signs of acute ischemia upon personal review and interp retation. Labs completed and reviewed. CBC showing leukocytosis with WBC count of 16.2, this is chronic in nature and appears to be around baseline level. Coagulation profile unremarkable. BMP unremarkable with the exception of mild hyperglycemia with glucose of 151. Liver profile unremarkable. Troponin negative at less than 0.012. Chest x-ray completed and lungs appear clear with radiology report heart negative for acute cardiopulmonary process. Patient was initially admitted to [facility] and transferred under our services this morning with consultation to cardiology. Reviewed troponins were trended throughout the night and all were negative at less than 0.0123 draws. Lipid profile unremarkable with the exception of low HDL of 36.80. Discussed plan of care cat swamper, Dr. Reyes and plans to take patient for stress test later today. Patient under evaluation by cat swamper and underwent stress echocardiogram. Stress echo showing normal stress echocardiogram without evidence of ischemia. Cardiology recommending outpatient follow-up in our office. Patient is currently free from any chest pain or discomfort and is medically stable for discharge at this time. No medication changes were made this admission. Patient to follow up outpatient with PCP in 1-2 days and cardiology in 1 week. Physical exam: Vital signs reviewed and stable. General: Nontoxic, no distress and appears stated age. Derm: Skin warm and dry, normal coloration for ethnicity. Head: Atraumatic, normocephalic and symmetric. Eyes: EOMs intact, no lid lag, and anicteric sclera Mouth: no lip lesions, mucus membranes moist Cardiovascular: regular rate and rhythm with normal S1S2, no murmur, positive posterior tibial pulses bilaterally, and cap refill < 2 seconds. Lungs: Respirations even, regular, and unlabored on room air. Lungs CTA bilaterally, no rhonchi, no rales, no wheezing, and no accessory muscle usage. Abdominal: soft, nontender to palpation, no guarding, no appreciable organomegaly Ext: ROM intact. No gross muscle atrophy, no edema, no contractures Neuro: Speech clear, face symmetrical and CN II-XII grossly intact with no noted focal neuro deficits Psych: Alert and oriented to person, place, time, and situation. Appropriate and pleasant affect. A total of 31 minutes of time were spent preparing this complex discharge summary. Pt was discharged on 12/23/22 at 1:59 PM Patient was seen independently by Nurse Practitioner. This document was prepared using [employer] dictation software. Please allow for errors in timber repairer while rare they do occur. Saurabh Carvjaal NP rendered care for this patient independently, reviewed the findings and plan as documented in the note above. I did not physically speak with or examine the patient on this date. Patient Condition at Discharge: Stable Plan - Discharge Summary Discharge Rx Participant: Yes New Discharge Prescriptions: Continue Losartan [Cozaar] 50 mg PO DAILY FLUoxetine HCL [PROzac] 20 mg PO TID tadalafiL [Cialis] 5 mg PO DAILY PRN PRN Reason: E.D Garlic 1,000 mg PO DAILY Cholecalciferol [Vitamin D3 (25 Mcg = 1000 Iu)] 50 mcg PO DAILY Atorvastatin [Lipitor] 20 mg PO HS Aspirin EC [Ecotrin Low Dose] 81 mg PO HS diazePAM [Valium] 5 mg PO BID PRN PRN Reason: Anxiety Zinc 50 mg PO DAILY Ascorbic Acid [Vitamin C] 2,000 mg PO DAILY Levothyroxine Sodium [Synthroid] 150 mcg PO DAILY Glucosamine/Chondr Vela A Sod [Osteo Bi-Flex Caplet] 1 tab PO DAILY Ubidecarenone [Co Q-10] 200 mg PO DAILY Cyclobenzaprine [Flexeril] 10 mg PO DAILY PRN PRN Reason: Pain Diclofenac Sodium 50 mg PO BID PRN PRN Reason: Pain Multivit-Min/FA/Lycopen/Lutein [Centrum Silver Men Tablet] 1 tab PO HS Aspirin/Acetaminophen/Caffeine [Excedrin Extra Strength Caplet] 1 tab PO BID PRN PRN Reason: Migraine Headache Omeprazole [PriLOSEC] 20 mg PO HS Gabapentin [Neurontin] 200 mg PO BID Discharge Medication List Ascorbic Acid [Vitamin C] 2,000 mg PO DAILY 08/17/21 [History] FLUoxetine HCL [PROzac] 20 mg PO TID 08/17/21 [History] Levothyroxine Sodium [Synthroid] 150 mcg PO DAILY 08/17/21 [History] Losartan [Cozaar] 50 mg PO DAILY 08/17/21 [History] Zinc 50 mg PO DAILY 08/17/21 [History] diazePAM [Valium] 5 mg PO BID PRN 08/17/21 [History] tadalafiL [Cialis] 5 mg PO DAILY PRN 09/18/21 [History] Glucosamine/Chondr Vela A Sod [Osteo Bi-Flex Caplet] 1 tab PO DAILY 11/28/21 [History] Ubidecarenone [Co Q-10] 200 mg PO DAILY 11/28/21 [History] Aspirin EC [Ecotrin Low Dose] 81 mg PO HS 12/22/22 [History] Aspirin/Acetaminophen/Caffeine [Excedrin Extra Strength Caplet] 1 tab PO BID PRN 12/22/22 [History] Atorvastatin [Lipitor] 20 mg PO HS 12/22/22 [History] Cholecalciferol [Vitamin D3 (25 Mcg = 1000 Iu)] 50 mcg PO DAILY 12/22/22 [History] Cyclobenzaprine [Flexeril] 10 mg PO DAILY PRN 12/22/22 [History] Diclofenac Sodium 50 mg PO BID PRN 12/22/22 [History] Gabapentin [Neurontin] 200 mg PO BID 12/22/22 [History] Garlic 1,000 mg PO DAILY 12/22/22 [History] Multivit-Min/FA/Lycopen/Lutein [Centrum Silver Men Tablet] 1 tab PO HS 12/22/22 [History] Omeprazole [PriLOSEC] 20 mg PO HS 12/22/22 [History] Follow up Appointment(s)/Referral(s): Charla Reyes MD [STAFF PHYSICIAN] - 12/29/22 2:30 pm Dale Robb DO [Doctor of Osteopathic Medicine] - 1-2 days Patient Instructions/Handouts: Angina (DC), Chest Pain (DC) Activity/Diet/Wound Care/Special Instructions: Activity: As tolerated. Take breaks as needed. Diet: Heart healthy and carb consistent diet. Avoid salts, or foods with hidden salts such as canned or boxed foods and frozen dinners. Extra salt makes your heart work harder and traps the fluid in your body for longer. Special Instructions: Take all of your medications as directed and remember to keep all of your doctor's appointments and follow-up as needed. Thank you for allowing us to participate in your care, it was truly a pleasure having you for our patient!!! Discharge Disposition: HOME SELF-CARE
--- NOTE | 2022-12-23 14:45 | CONS ---
CONSULTATION This is a 62-year-old gentleman, a patient of Dr. Munoz who was last seen in the office in October 19. He has a history of noncritical CAD, hypertension, and hyperlipidemia. His last stress test was in December 2021, which was negative for ischemia. This gentleman also has underlying comorbid conditions in the form of chronic lymphocytic leukemia, hypertension, and hyperlipidemia. Apparently, he came into the emergency room when he started having some discomfort in the chest. When he was sitting down, he complained of some throat discomfort, a chest uncomfortable sensation and called EMS and after the EMS was bringing him en route, they gave him nitroglycerin and he became unresponsive and then woke up and then complained of some dizziness. His troponins are normal. EKG is unremarkable. He is resting comfortably. His pain is very atypical, seems musculoskeletal. He has no chest pain at the time of my evaluation. His troponin levels are unremarkable. EKG is also unremarkable. He is resting comfortably without symptoms. PAST MEDICAL HISTORY: 1. Hypertension. 2. Hyperlipidemia. 3. Negative stress test in December 2021 and this was a Lexiscan stress test performed in the office. He also has a history of chronic lymphocytic leukemia under the care of a cell plasterer in [facility]. On January 03, 2022, he actually walked on a treadmill for 7.5 minutes and there was no ischemia on the nuclear part of the stress test. 4. EKG revealed sinus mechanism with poor low voltage, minor right ventricular conduction delay. MEDICATIONS: Medications at home include, 1. Prozac. 2. Prilosec. 3. Ascorbic acid. 4. He also takes Losartan 50 mg daily and levothyroxine and gabapentin. PHYSICAL EXAMINATION: VITAL SIGNS: Blood pressure is 140/70, pulse rate is 64. HEENT: Unremarkable. Fundus was not examined by me. NECK: Supple. No JVD. I do not hear a carotid bruit. There is no thyromegaly. HEART: Reveals S1, S2 heard normally. No significant rub, murmur or gallop. LUNGS: Clear. ABDOMEN: Soft, nontender. EXTREMITIES: Lower extremities reveal normal pulses. No edema. Central nervous system is normal. DIAGNOSTIC DATA: EKG revealed sinus mechanism, right ventricular conduction delay, low voltage, no acute changes. IMPRESSION: 1. Atypical chest pain. 2. History of chronic lymphocytic leukemia under the care of cell plasterer in [facility]. 3. Hypothyroidism. 4. Hypertension. 5. Hyperlipidemia. RECOMMENDATIONS: This patient's symptoms seem very atypical not suggestive of angina, but given his presentation through EMS, I am recommending a stress echo and if this is normal, he can be discharged. Discussed my thoughts in detail with the patient. Thank you very much for the consult. KATTY / LEO: [id number] /
== END 2022-12-23 15:25 | disposition home or self-care (01) ==
LOC: EC 10:53 → 6NMEDSUR 15:27
PROVIDERS: ADMIT Internal Medicine; ATTEND Internal Medicine
DX: R07.89 Other chest pain (principal); I10 Essential (primary) hypertension; E78.5 Hyperlipidemia, unspecified; E03.9 Hypothyroidism, unspecified; C91.10 Chronic lymphocytic leukemia of B-cell type not having achieved remission; R42 Dizziness and giddiness; K21.9 Gastro-esophageal reflux disease without esophagitis; G47.33 Obstructive sleep apnea (adult) (pediatric); R73.9 Hyperglycemia, unspecified; N32.81 Overactive bladder; G62.9 Polyneuropathy, unspecified; H91.90 Unspecified hearing loss, unspecified ear; F41.0 Panic disorder [episodic paroxysmal anxiety]; F43.10 Post-traumatic stress disorder, unspecified; F41.9 Anxiety disorder, unspecified; G89.29 Other chronic pain; M54.9 Dorsalgia, unspecified; R09.81 Nasal congestion; E66.9 Obesity, unspecified; Z68.35 Body mass index [BMI] 35.0-35.9, adult; Z79.890 Hormone replacement therapy; Z79.82 Long term (current) use of aspirin; Z79.899 Other long term (current) drug therapy; Z88.5 Allergy status to narcotic agent; Z88.8 Allergy status to other drugs, medicaments and biological substances; Z86.010 Personal history of colon polyps; Z87.11 Personal history of peptic ulcer disease; Z86.16 Personal history of COVID-19; Z87.891 Personal history of nicotine dependence; Z90.49 Acquired absence of other specified parts of digestive tract; Z98.890 Other specified postprocedural states
CPT/HCPCS: 99285; 36415; 94760; 93005; 93351; 80061; 80053; 83735; 84484; 85025; 85610; 85730; 71046; G0378 ×2

== ENCOUNTER 2023-02-19 06:14 | Day surgery (SDC) | payer OTHER ==
[2023-02-13 17:16] VITALS: BMI 36.2
[~2023-02-19 06:14] MED LIST changes: +ALPRAZolam 0.25 MG TAB PO PRN; +ALPRAZolam 0.5 MG TAB PO PRN; +ASPIRIN 325 MG TAB PO STA; +ATORVASTATIN 80 MG TAB PO STA; +HEPARIN SODIUM,PORCINE (1 ML) 2,500 UNIT in SODIUM CHLORIDE 0.9% 250 ML IRRIGATION PRN; +HEPARIN SODIUM,PORCINE 10,000 UNIT in SODIUM CHLORIDE 0.9% 1,000 ML IRRIGATION PRN; -LACTATED RINGERS 1,000 ML IV SCH; -LIDOCAINE 1% (10MG/ML) FOR IV START INTRADERMA PRN; +NITROGLYCERIN SL TABS 0.4 MG TAB SUBLINGUAL PRN; +SODIUM CHLORIDE 0.9% 1,000 ML in EMPTY BAG 1 BAG IV SCH
[2023-02-19 06:39] VITALS: RESP 18; TEMP 98.1
[2023-02-19] MEDS ORDERED: VERAPAMIL 2.5 MG/ML 2 ML AMP ONE (07:15)
[2023-02-19] MEDS ORDERED: HEPARIN SODIUM 1,000 UN/ML (10ML VL) ONE (07:37)
[2023-02-19] MEDS ORDERED: fentaNYL (PF) 50 MCG/ML 2 ML AMP ONE (07:37)
[2023-02-19] MEDS ORDERED: MIDAZOLAM 2 MG/2 ML VIAL IVP ONE (07:45)
[2023-02-19] MEDS ORDERED: fentaNYL (PF) 50 MCG/ML 2 ML AMP IVP ONE (07:45)
[2023-02-19] MEDS ORDERED: LIDOCAINE 1% INJ 10MG/ML (5 ML VIAL-PF) SQ ONE (07:47)
[2023-02-19] MEDS ORDERED: VERAPAMIL SYRINGE (5 MG/10 ML) INTRAARTER ONE (07:52)
[2023-02-19] MEDS ORDERED: HEPARIN SODIUM 1,000 UN/ML (10ML VL) IVP ONE (07:52)
[2023-02-19] MEDS ORDERED: IOPAMIDOL-370 100ML BTL INJ ONE (08:00)
--- NOTE | 2023-02-19 08:30 | CC ---
CARDIAC CATHETERIZATION REPORT INDICATION: Unstable angina in a patient with multiple coronary risk factors including hypertension, dyslipidemia, and strong family history of coronary artery disease. The patient presented to me with recurrent episodes of chest discomfort and already had a negative stress test in November. Given the unexplained episodes of chest pain, I advised him to undergo cardiac catheterization for definitive diagnosis. He had been explained of risks, benefits, and alternatives, understood and accepted. PROCEDURE NOTE: After obtaining informed consent, left heart catheterization and coronary angiogram were performed via the right radial artery using standard Anisa catheters. The patient tolerated the procedure well without any obvious immediate complications. The patient received moderate conscious sedation. Total sedation time was 15 minutes. The patient received verapamil and heparin per protocol. The right radial artery access was obtained using Seldinger technique, 6-Filipino sheath was placed. Catheters and wires were floated into the ascending aorta under fluoroscopic guidance. A TR band was used for hemostasis at the end of the procedure. FINDINGS: 1. HEMODYNAMICS: Left ventricular end-diastolic pressure is 14 to 16 mm. There is no significant gradient across the aortic valve. 2. Left ventriculogram: Left ventriculogram is not performed. 3. ANGIOGRAPHIC DATA: Right coronary artery: Right coronary artery is a large dominant vessel and is free of significant stenosis. Shows mild nonobstructive plaque. Left main coronary artery is a normal-sized vessel and is free of stenosis. Divides into left anterior descending coronary artery, ramus intermedius, and nondominant circumflex coronary artery. LAD and its branches, circumflex coronary artery and ramus intermedius are free of significant disease. There is mild nonobstructive atherosclerotic plaque noted in the LAD. CONCLUSION: Mild nonobstructive disease. PLAN: The patient's chest discomfort is probably noncardiac in origin and his management is going to be in the form of risk factor modification and optimal medical therapy. I reviewed these issues with the patient. He understands and is in agreement with the plans. MMODL / IJN: [id number] /
[2023-02-19 11:22] VITALS: BP 150/68; PULSE 53
== END 2023-02-19 11:40 | disposition home or self-care (01) ==
LOC: CATHCVL 06:14
PROVIDERS: ATTEND Internal Medicine Cardiovascular Disease
DX: I25.110 Atherosclerotic heart disease of native coronary artery with unstable angina pectoris (principal); I10 Essential (primary) hypertension; E78.5 Hyperlipidemia, unspecified; Z82.49 Family history of ischemic heart disease and other diseases of the circulatory system; Z88.5 Allergy status to narcotic agent; Z88.3 Allergy status to other anti-infective agents; Z90.49 Acquired absence of other specified parts of digestive tract; Z87.891 Personal history of nicotine dependence; Z79.82 Long term (current) use of aspirin; Z79.02 Long term (current) use of antithrombotics/antiplatelets; Z79.891 Long term (current) use of opiate analgesic; Z79.83 Long term (current) use of bisphosphonates; Z79.890 Hormone replacement therapy; Z79.899 Other long term (current) drug therapy
CPT/HCPCS: 93458; C1769 ×2; C1894; J2250; J2001; J3010; J1644; Q9967

== ENCOUNTER → 2024-03-09 | Outpatient (CLI) | payer OTHER ==
--- NOTE | 2024-03-14 09:51 | MR ---
EXAMINATION TYPE: MR knee RT wo con DATE OF EXAM: 03/09/2024 COMPARISON: Radiograph 03/02/2024 HISTORY: 63-year-old male M25.561 Right knee pain x 4 weeks, no trauma. TECHNIQUE: Multiplanar, multisequence imaging of the right knee is performed without IV contrast. FINDINGS: The ACL, PCL, and MCL are intact. Some heterogeneous increased signal within the substance of the LCL proper at the femoral attachment suggests chronic or low-grade sprain. In addition, there may be interstitial tear at the popliteus te ndon. Otherwise, LCL complex appears intact. There is an oblique tear within the body of the medial meniscus. Degenerative signal extends through the posterior horn. Moderate irregular cartilage thinning along the mid weightbearing aspect of the medial femoral condyl e. Some edema along the peripheral lip of the medial tibial plateau suggesting focal osteoarthritic c hange here as well. The lateral meniscus is intact and overall lateral compartment articular cartilage volume is maintain ed. There is mild thinning of mid patellar articular cartilage. Trochlear cartilage grossly intact. The extensor mechanism is intact. Small, physiologic knee joint effusion. No sizable Sanon's cyst. There is normal popliteal artery anatomy and muscle bulk. No suspicious bone marrow replacement. IMPRESSION: 1. Oblique tear involving the body of the medial meniscus. Some degenerative signal extends through t he posterior horn. Moderate irregular cartilage thinning along the mid weightbearing aspect of the me diofemoral condyle and some additional focal osteoarthritic change along the peripheral lip of the me dial tibial plateau. Mild overall OA. 2. Either low-grade versus chronic sprain at the femoral attachment of the LCL proper. Interstitial t ear popliteus tendon. 3. Mild early degenerative degenerative changes in the patellofemoral compartment. [facility], Workstation: [email or web address], 03/14/2024 9:48 AM
== END | disposition home or self-care (01) ==
LOC: RADMRIMAIN 10:43
PROVIDERS: ATTEND Orthopaedic Surgery
DX: S83.241A Other tear of medial meniscus, current injury, right knee, initial encounter (principal); M17.11 Unilateral primary osteoarthritis, right knee

== ENCOUNTER → 2024-05-04 | Outpatient (CLI) | payer OTHER ==
[2024-05-04 15:06] LABS: HCT 43.3 % (39.6-50.0); HGB 14.5 g/dL (13.0-17.0); MCH 31.7 pg (27.0-32.0); MCHC 33.5 g/dL (32.0-37.0); MCV 94.5 FL (80.0-97.0); Mean Platelet Volume 10.2 FL (9.5-12.2); NRBC Per 100 WBC 0 X 10*3/uL (0.00-0.01); Platelet Count 265 X 10*3/uL (140-440); RBC 4.58 X 10*6/uL (4.40-5.60); RDW 13.3 % (11.5-14.5); WBC 19.22 X 10*3/uL (4.50-10.00)
[2024-05-04 15:19] LABS: Anion Gap 11.7 mmol/L (4.00-12.00); Carbon Dioxide 23.3 mmol/L (21.6-31.8); Potassium 4.4 mmol/L (3.5-5.5)
[2024-05-04 15:44] LABS: Basophils # (M) 0 X 10*3/uL (0.00-0.10); Eosinophils # (M) 0.38 X 10*3/uL (0.04-0.35); Lymphocytes # (M) 10.19 X 10*3/uL (0.90-5.00); Monocytes # (M) 1.15 X 10*3/uL (0.20-1.00); Neutrophils % (M) 39 %; RBC Morphology Normal (Normal)
== END | disposition home or self-care (01) ==
LOC: LABPAT 08:18
PROVIDERS: ATTEND Orthopaedic Surgery
DX: Z01.818 Encounter for other preprocedural examination (principal); M23.91 Unspecified internal derangement of right knee
CPT/HCPCS: 80051; 85025

== ENCOUNTER 2024-05-11 08:22 | Day surgery (SDC) | payer OTHER ==
[2024-05-10 09:13] VITALS: BMI 37.3
--- NOTE | 2024-05-10 23:16 | HP ---
HISTORY AND PHYSICAL DATE OF SURGERY: 05/11/2024. HISTORY OF PRESENT ILLNESS: Yazan Morris is a 63-year-old gentleman seen with progressive right knee pain. After having treatment options discussed, he elected to proceed with right knee arthroscopy. Consent was obtained. Cardiac clearance was provided by Dr. Munoz. PAST MEDICAL HISTORY: Cardiovascular disease, hypertension, hyperlipidemia, hypothyroidism, leukemia. PAST SURGICAL HISTORY: Cholecystectomy. DAILY MEDICATIONS: 1. Aspirin. 2. Atorvastatin. 3. Levothyroxine. 4. Losartan. 5. Omeprazole. 6. Vitamins. ALLERGIES: Codeine, niacin. SOCIAL HISTORY: Denies tobacco use. PHYSICAL EVALUATION OF THE RIGHT KNEE: Range of motion is 0 to 125 degrees. Mild effusion. Tenderness, medial joint line. Positive medial Sammy's. Ligaments stable. Hip rotation without pain. Distal neurovascular exam is intact. IMAGING STUDIES: Right knee radiographs revealed mild osteoarthritis and effusion. MRI of right knee revealed medial meniscal tear, early osteoarthritis, and intra-articular effusion. IMPRESSION: 1. Internal derangement of right knee with medial meniscal tear. 2. Cardiovascular disease. 3. Hypertension. 4. Hyperlipidemia. 5. Gastroesophageal reflux disease. 6. History of leukemia. PLAN: Right knee arthroscopy with partial medial meniscectomy and debridement. MMODL / IJN: [id number] /
[~2024-05-11 08:22] MED LIST changes: -ALPRAZolam 0.25 MG TAB PO PRN; -ALPRAZolam 0.5 MG TAB PO PRN; -ASPIRIN 325 MG TAB PO STA; -ATORVASTATIN 80 MG TAB PO STA; -HEPARIN SODIUM,PORCINE (1 ML) 2,500 UNIT in SODIUM CHLORIDE 0.9% 250 ML IRRIGATION PRN; -HEPARIN SODIUM,PORCINE 10,000 UNIT in SODIUM CHLORIDE 0.9% 1,000 ML IRRIGATION PRN; -NITROGLYCERIN SL TABS 0.4 MG TAB SUBLINGUAL PRN; -SODIUM CHLORIDE 0.9% 1,000 ML in EMPTY BAG 1 BAG IV SCH; +fentaNYL (PF) 50 MCG/ML 2 ML AMP IV PRN
[2024-05-11] MEDS: IV FLUID CONTINUATION 1,000 ML IV ONE (09:05)
[2024-05-11] MEDS: LACTATED RINGERS 1,000 ML IV SCH (09:07)
[2024-05-11] MEDS: DEXAMETHASONE SOD PHOSPHATE 4 MG/ML 1 ML VIAL IV ONE (09:19)
[2024-05-11] MEDS: ONDANSETRON 4 MG/2 ML VIAL IVP ONE (09:19)
[2024-05-11] MEDS: MIDAZOLAM 2 MG/2 ML VIAL IV ONE (09:33)
[2024-05-11] MEDS ORDERED: LIDOCAINE 1% INJ 10MG/ML (20 ML MDV) ONE (09:50)
[2024-05-11] MEDS: BUPIVACAINE (PF) 0.25% 30 ML VIAL MISCELLANE ONE ×2 (09:50→10:22)
[2024-05-11] MEDS ORDERED: fentaNYL (PF) 50 MCG/ML 2 ML AMP ONE (09:50)
[2024-05-11] MEDS ORDERED: PROPOFOL 10 MG/ML 20 ML VIAL IV ONE (09:50)
[2024-05-11] MEDS: ceFAZolin 3 GM in SODIUM CHLORIDE 0.9% 100 ML IVPB PRN (09:55)
--- NOTE | 2024-05-11 10:37 | P.OP ---
Date of Procedure: 05/11/24 Preoperative Diagnosis: Internal derangement right knee Postoperative Diagnosis: 1. Tear medial and lateral meniscus right knee 2. Grade IV chondromalacia medial femoral condyle right knee 3. Reactive synovitis medial, lateral and suprapatellar compartments right knee Procedure(s) Performed: 1. Arthroscopic partial medial and lateral meniscectomy right knee 2. Arthroscopic microfracture medial femoral condyle right knee 3. Arthroscopic partial synovectomy medial, lateral and suprapatellar compartments right knee Anesthesia: GETA, local Surgeon: Jose Roberto Ferguson Estimated Blood Loss (ml): 5 Pathology: none sent Condition: stable Disposition: PACU Indications for Procedure: 63-year-old gentleman seen with progressive right knee pain. After having treatment options discussed, he elected to proceed with arthroscopy. Operative Findings: See description of procedure Description of Procedure: Patient was taken to the operative suite. Patient underwent a general anesthetic by the department of anesthesia. Patient was given preoperative antibiotics. The right lower extremity was placed in a well-padded arthroscopic leg johansen. The right leg was prepped and draped in the normal sterile orthopedic fashion. A lateral parapatellar and suprapatellar incision was made. Trochars were inserted. Arthroscopy was initiated. Suprapatellar pouch revealed diffuse thick reactive synovitis. The patellofemoral joint appeared to articulate congruently. There was grade II chondromalacia of the patella with no significant osteochondral tears present. The scope was guided into the medial gutter. No loose bodies or plica were identified. The scope was then guided into the medial compartment. A medial parapatellar incision was made. Trocar inserted followed by probe. There was a tear involving posterior medial meniscus. There were grade 3 chondral changes along the anterior aspect the medial femoral condyle with some large osteochondral flap tears. There was some thick reactive synovitis anteriorly. I performed a partial medial meniscectomy getting down to stable meniscal tissue. I performed a chondroplasty medial femoral condyle getting down to stable osteochondral tissue. I performed a part ial synovectomy decompressing the thick reactive synovitis anteriorly. I did note an area of grade IV chondromalacia involving the very anterior aspect medial femoral condyle with an area exposed bone measuring about a centimeter. I introduced a microfracture awl and I performed a microfracture to the area of exposed bone penetrating the bone with resultant bleeding at the microfracture site. The residual meniscus was stable. The residual osteochondral surface was stable. There was good decompression of the synovitis. Scope and probe were then guided into the intercondylar notch. Cruciates were identified, probed and found to be stable. The scope and probe were then guided into lateral compartment. Radial tear mid body lateral meniscus. There was no chondromalacia. There was some thick reactive situs anteriorly. I performed a partial lateral meniscectomy getting down to stable meniscal tissue. I performed a partial synovectomy. The residual meniscus was probed and was found to be stable. There was good decompression of the synovitis. The scope was in guided back into the suprapatellar compartment. I introduced a motorized shaver into the suprapatellar compartment. I debrided some piecemeal fragments of meniscus I encountered. I performed a partial synovectomy. The shaver was removed. There was good decompression of the synovitis. I now took one more look around the entire knee, no residual debris. Instruments were now removed from the joint. The joint was infiltrated with .25% Marcaine. Steri-Strips were applied to the portal sites. Sterile dressings were applied. The patient was placed into a RENETTA hose. No tourniquet was utilized. The patient was awakened, transferred to a bed and taken to recovery stable satisfactory condition.
[2024-05-11 10:45] VITALS: TEMP 97.5
[2024-05-11 11:43] VITALS: RESP 16
[2024-05-11 11:57] VITALS: BP 133/80
[2024-05-11 12:29] VITALS: PULSE 55
== END 2024-05-11 12:44 | disposition home or self-care (01) ==
LOC: OR 08:22
PROVIDERS: ATTEND Orthopaedic Surgery
DX: S83.281A Other tear of lateral meniscus, current injury, right knee, initial encounter (principal); S83.241A Other tear of medial meniscus, current injury, right knee, initial encounter; M94.261 Chondromalacia, right knee; M65.861 Other synovitis and tenosynovitis, right lower leg; I10 Essential (primary) hypertension; I25.10 Atherosclerotic heart disease of native coronary artery without angina pectoris; E78.2 Mixed hyperlipidemia; G47.33 Obstructive sleep apnea (adult) (pediatric); E03.9 Hypothyroidism, unspecified; K21.9 Gastro-esophageal reflux disease without esophagitis; M17.11 Unilateral primary osteoarthritis, right knee; M25.461 Effusion, right knee; Z79.82 Long term (current) use of aspirin; Z79.890 Hormone replacement therapy; Z79.899 Other long term (current) drug therapy; Z85.6 Personal history of leukemia; Z88.5 Allergy status to narcotic agent; Z88.8 Allergy status to other drugs, medicaments and biological substances; Z88.1 Allergy status to other antibiotic agents
CPT/HCPCS: 29880; 29879; 29876; J2250; J1100; J0690; J2405; J2003; J3010; J2704; J0665

== ENCOUNTER 2025-01-16 02:37 | Emergency (ER) | payer OTHER, MEDICARE ==
[2025-01-16 02:56] VITALS: RESP 18; TEMP 97.7
--- NOTE | 2025-01-16 03:32 | ED ---
Abdominal Pain HPI - General Chief Complaint: Abdominal Pain Stated Complaint: Abd pain Time Seen by Provider: 01/16/25 02:42 Source: patient Mode of arrival: ambulatory Limitations: no limitations - History of Present Illness Initial Comments: 64-year-old male with GERD, hyperlipidemia, hypertension, CLL, hiatal hernia, history of cholecystitis with cholecystectomy here for abdominal pain. Patient reported that in the past 2 days he has been having abdominal pain that is aching in the bilateral quadrants that radiates to the groin, 10 out of 10 at maximum, worse with ambulation, better with rest and being still. At night on 01/15 as he was going to bed, he had the worst episode of abdominal pain with associated nausea and lightheadedness which led him to seek care. He denied fever, chills, vomiting, diarrhea, chest pain, shortness of breath, cough, recent travel, recent illness, recent exposure to sick contacts. - Related Data Home Medications Medication Instructions Recorded Confirmed FLUoxetine HCL [PROzac] 20 mg PO TID 08/17/21 05/10/24 Losartan [Cozaar] 50 mg PO QAM 08/17/21 05/10/24 Zinc 50 mg PO QAM 08/17/21 05/10/24 diazePAM [Valium] 5 mg PO BID PRN 08/17/21 05/11/24 Glucosamine/Chondr Vela A Sod [Osteo 1 tab PO DAILY 11/28/21 05/10/24 Bi-Flex Caplet] Aspirin EC [Ecotrin Low Dose] 81 mg PO HS 12/22/22 05/10/24 Atorvastatin [Lipitor] 20 mg PO HS 12/22/22 05/11/24 Cholecalciferol [Vitamin D3 (25 50 mcg PO QAM 12/22/22 05/10/24 Mcg = 1000 Iu)] Cyclobenzaprine [Flexeril] 10 mg PO QAM PRN 12/22/22 05/11/24 Diclofenac Sodium 50 mg PO BID PRN 12/22/22 05/11/24 Mv-Min/Folic/K1/Lycopen/Lutein 1 tab PO HS 12/22/22 05/10/24 [Centrum Silver Men Tablet] Levothyroxine Sodium [Synthroid] 137 mcg PO QAM 02/13/23 05/10/24 Naproxen [Naprosyn] 500 mg PO DIRECTED PRN 02/13/23 05/10/24 Pantoprazole Sodium [Protonix] 20 mg PO HS 02/13/23 05/11/24 Antibiotic(Unknown Dose) 1 dose PO BID 05/10/24 05/11/24 Tylenol(Unknown Dose) 1 dose PO Q8H PRN 05/10/24 05/11/24 Previous Rx's Medication Instructions Recorded HYDROcodone/APAP 5-325MG [[place] 1 tab PO Q6HR PRN #12 tab 05/11/24 5-325] Sulfamethox-Tmp 800-160Mg [Bactrim 1 tab PO Q12HR #14 tab 01/16/25 DS 800-160 mg] metroNIDAZOLE 500 mg PO Q8H #21 tablet 01/16/25 Allergies Allergy/AdvReac Type Severity Reaction Status Date / Time levofloxacin [From Levaquin] Allergy Rash/Hives Verified 01/16/25 02:53 niacin Allergy Anaphylaxis Verified 01/16/25 02:53 codeine AdvReac Nausea & Verified 01/16/25 02:53 Vomiting Review of Systems ROS Statement: Those systems with pertinent positive or pertinent negative responses have been documented in the HPI. ROS Other: All systems not noted in ROS Statement are negative. 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 History of Any Multi-Drug Resistant Organisms: None Reported Past Surgical History: Back Surgery, Cholecystectomy Additional Past Surgical History / Comment(s): herniated disc repair Past Anesthesia/Blood Transfusion Reactions: No Reported Reaction Past Psychological History: Anxiety, Panic Disorder, PTSD Smoking Status: Former smoker Past Alcohol Use History: None Reported Past Drug Use History: None Reported - Past Family History MOTHER Family Medical History: Pulmonary Embolus General Exam - General Exam Comments Initial Comments: Physical examination: Vital signs reviewed General: non toxic, no distress, appears at stated age Head: atraumatic, normocephalic, symmetric Mouth: no lip lesion, mucus membranes moist Cardiovascular: S1S2 reg, no murmur Lungs: CTA bilateral, no rhonchi, no rales, no accessory muscle use Abdominal: soft, nondistended, tender to light palpation in the left upper quadrant, no guarding, bowel sounds appreciated Ext: muscle strength 5 out of 5 in all 4 extremities grossly, no gross muscle atrophy, no contractures, positive dorsalis pedis pulse bilateral, no edema Neuro: no gross focal neuro deficits Psych: Alert and oriented x3, appropriate affect and mood Limitations: no limitations Course Vital Signs 01/16/25 01/16/25 01/16/25 02:53 04:21 05:27 Temperature 97.7 F Pulse Rate 104 H 86 86 Respiratory 18 18 18 Rate Blood Pressure 109/51 124/62 137/67 O2 Sat by Pulse 96 94 L 95 Oximetry Medical Decision Making - Medical Decision Making Was pt. sent in by a medical professional or institution (, [facility], [facility], urgent care, hospital, or halfway...) When possible be specific @ -No Did you speak to anyone other than the patient for history (EMS, parent, family, police, friend...)? What history was obtained from this source @ - at bedside. Did you review nursing and triage notes (agree or disagree)? Why? @ -I reviewed and agree with nursing and triage notes Were old charts reviewed (outside hosp., previous admission, EMS record, old EKG, old radiological studies, urgent care reports/EKG's, halfway records)? Report findings @ -No old charts were reviewed Differential Diagnosis? @ -Differential Abdominal Pain Men: Appendicitis, cholecystitis, diverticulosis, ischemic bowel, pancreatitis, hepatitis, UTI, gastroenteritis, AAA, incarcerated hernia, bowel obstruction, constipation, inflammatory bowel, hepatitis, peptic ulcer disease, splenic infarction, perforated viscus, testicular torsion, this is not meant to be an all-inclusive list EKG interpreted by me (3pts min.). @ -None done X-rays interpreted by me (1pt min.). @ -None done CT interpreted by me (1pt min.). @ -Diverticulitis noted in the small intestine. U/S interpreted by me (1pt. min.). @ -None done What testing was considered but not performed or refused? (CT, X-rays, U/S, labs)? Why? @ -None What meds were considered but not given or refused? Why? @ -None Did you discuss the management of the patient with other professionals (professionals i.e. , PA, [facility], lab, RT, psych nurse, social media content specialist, chief customer officer, teacher, corporate ethics officer, disease case manager rn)? Give summary @ -Dr. Birch, supervising physician Was smoking cessation discussed for >3mins.? @ -No Was critical care preformed (if so, how long)? @ -No Were there social determinants of health that impacted care today? How? (Homelessness, low income, unemployed, alcoholism, drug addiction, transportation, low edu. Level, literacy, decrease access to med. care, penitentiary, rehab)? @ -No Was there de-escalation of care discussed even if they declined (Discuss DNR or withdrawal of care, Hospice)? DNR status @ -No What co-morbidities impacted this encounter? (DM, HTN, Smoking, COPD, CAD, Cancer, CVA, ARF, Chemo, Hep., AIDS, mental health diagnosis, sleep apnea, mor bid obesity)? @ -None Was patient admitted / discharged? Hospital course, mention meds given and rou te, prescriptions, significant lab abnormalities, going to OR and other pertinent info. @ -Discharge. P.o. pain meds, CBC, comp, lipase, amylase, CT abdomen pelvis without contrast ordered. Labs unremarkable except for elevated WBC which is known due to patient's history. Found to have acute diverticulitis in the jejunum and umbilical hernia with a knuckle of nonobstructed bowel. Umbilical hernia reduced at bedside successfully. Patient's symptoms improved throughout stay and did not develop any new symptoms or complaints. Patient sent home on p.o. antibiotics for 7 days. Advised to follow-up with PCP regarding umbilical hernia. Advised to return for evaluation if red flag symptoms occur. Undiagnosed new problem with uncertain prognosis? @ -No Drug Therapy requiring intensive monitoring for toxicity (Heparin, Nitro, Insulin, Cardizem)? @ -No Were any procedures done? @ -No Diagnosis/symptom? @ -Acute diverticulitis, umbilical hernia with nonobstructed bowel Acute, or Chronic, or Acute on Chronic? @ -Acute Uncomplicated (without systemic symptoms) or Complicated (systemic symptoms)? @ -Uncomplicated Side effects of treatment? @ -No Exacerbation, Progression, or Severe Exacerbation? @ -No Poses a threat to life or bodily function? How? (Chest pain, USA, SC, pneumonia, PE, COPD, DKA, ARF, appy, cholecystitis, CVA, Diverticulitis, Homicidal, Suicidal, threat to staff... and all critical care pts) @ -No - Lab Data Result diagrams: 01/16/25 04:21 01/16/25 04:21 Lab Results 01/16/25 01/16/25 Range/Units 04:21 04:21 WBC 22.36 H (4.50-10.00) 10*3/uL RBC 5.11 (4.40-5.60) 10*6/uL Hgb 16.4 (13.0-17.0) g/dL Hct 47.0 (39.6-50.0) % MCV 92.0 (80.0-97.0) fL MCH 32.1 H (27.0-32.0) pg MCHC 34.9 (32.0-37.0) g/dL Plt Count 117 L (140-440) 10*3/uL MPV 10.0 (9.5-12.2) fL Immature Gran % (Auto) 0.3 % Neutrophils % (Manual) 58 % Band Neuts % (Manual) 4 % Lymphocytes % (Manual) 31 % Monocytes % (Manual) 6 % Eosinophils % (Manual) 1 % Immature Gran # 0.07 H (0.00-0.04) 10*3/uL Neutrophils # (Manual) 13.86 H (1.3-7.7) k/uL Lymphocytes # (Manual) 6.93 H (1.0-4.8) k/uL Monocytes # (Manual) 1.34 H (0-1.0) k/uL Eosinophils # (Manual) 0.22 (0-0.7) k/uL Nucleated RBCs 0 (0-0) /100 WBC Manual Slide Review Performed Sodium 138 (137-145) mmol/L Potassium 4.4 (3.5-5.1) mmol/L Chloride 104 (98-107) mmol/L Carbon Dioxide 21 L (22-30) mmol/L Anion Gap 13 mmol/L BUN 13 (9-20) mg/dL Creatinine 1.03 (0.66-1.25) mg/dL Est GFR (CKD-EPI)AfAm 88 (>60 ml/min/1.73 sqM) Est GFR (CKD-EPI)NonAf 76 (>60 ml/min/1.73 sqM) Glucose 127 H (74-99) mg/dL Calcium 9.5 (8.4-10.2) mg/dL Total Bilirubin 0.9 (0.2-1.3) mg/dL AST 26 (17-59) U/L ALT 35 (4-49) U/L Alkaline Phosphatase 110 (38-126) U/L Total Protein 6.9 (6.3-8.2) g/dL Albumin 4.5 (3.5-5.0) g/dL Amylase 69 (30-110) U/L Lipase 221 (23-300) U/L Disposition Clinical Impression: Abdominal pain, Diverticulitis, Umbilical hernia Disposition: HOME SELF-CARE Condition: Good Instructions (If sedation given, give patient instructions): Abdominal Pain (ED) Additional Instructions: Every disease is a spectrum and a small chance still exists that a serious condition could develop, for this reason, please monitor yourself closely for new, changing or worsening symptoms, symptoms that persist beyond another 72 hours, intractable nausea and vomiting, worsening abdominal pain, abdominal di stention, acute constipation, bloody stool or vomit, fever >4 days, inability to tolerate/keep down fluids or your medications, inability to follow up with outpatient providers as instructed and should you experience these symptoms or should you have any further concerns for your wellbeing please return to the ED or call 911 immediately. PLEASE call your primary care physician as soon as possible to arrange / discuss plan for followup appointment. Appointment in the next 1-3 days is strongly encouraged if possible. PLEASE let us know here before you leave if there is anything further we can do to be of any assistance. Take care and feel Better! Prescriptions: Sulfamethox-Tmp 800-160Mg [Bactrim DS 800-160 mg] 1 tab PO Q12HR #14 tab metroNIDAZOLE 500 mg PO Q8H #21 tablet Is patient prescribed a controlled substance at d/c from ED?: No Referrals: Austen Garcia MD [Primary Care Provider] - 1-2 days Time of Disposition: 05:50
[2025-01-16 04:22] VITALS: PULSE 86
[2025-01-16 04:34] LABS: HCT 47.0 % (39.6-50.0); HGB 16.4 g/dL (13.0-17.0); MCH 32.1 pg (27.0-32.0); MCHC 34.9 g/dL (32.0-37.0); MCV 92.0 fL (80.0-97.0); Platelet Count 117 10*3/uL (140-440); RBC 5.11 10*6/uL (4.40-5.60); RDW 13.2 % (11.5-14.5); WBC 22.36 10*3/uL (4.50-10.00)
[2025-01-16 04:46] LABS: ALT 35 U/L (4-49); AST 26 U/L (17-59); African American GFR (CKD) 88 (>60 ml/min/1.73 sqM); Albumin 4.5 g/dL (3.5-5.0); Alkaline Phosphatase 110 U/L (38-126); Amylase 69 U/L (30-110); Anion Gap 13 mmol/L; Blood Urea Nitrogen 13 mg/dL (9-20); Calcium 9.5 mg/dL (8.4-10.2); Carbon Dioxide 21 mmol/L (22-30); Chloride 104 mmol/L (98-107); Glucose 127 mg/dL (74-99); Lipase 221 U/L (23-300); Non-African American GFR(CKD) 76 (>60 ml/min/1.73 sqM); Potassium 4.4 mmol/L (3.5-5.1); Sodium 138 mmol/L (137-145); Total Protein 6.9 g/dL (6.3-8.2)
[2025-01-16 05:12] LABS: Eosinophils # (M) 0.22 k/uL (0-0.7); Lymphocytes # (M) 6.93 k/uL (1.0-4.8); Monocytes # (M) 1.34 k/uL (0-1.0); Neutrophils # (M) 13.86 k/uL (1.3-7.7); Neutrophils % (M) 58 %; Total Cells Counted 100
--- NOTE | 2025-01-16 05:20 | CT ---
EXAM: CT Abdomen and Pelvis Without Intravenous Contrast CLINICAL HISTORY: ITS.REASON CT Reason: abdominal pain TECHNIQUE: Axial computed tomography images of the abdomen and pelvis without intravenous contrast. CTDI is 18.5 mGy and DLP is 1287 mGy-cm. This CT exam was performed using one or more of the following dose reduction techniques: automated exposure control, adjustment of the mA and/or kV according to patient size, and/or use of iterative reconstruction technique. COMPARISON: 09/18/2021 FINDINGS: Mediastinum: Trace hiatal hernia. ABDOMEN: Liver: Unremarkable. Gallbladder and bile ducts: Cholecystectomy. Pancreas: Unremarkable. Spleen: Unremarkable. Adrenals: Unremarkable. Kidneys and ureters: A few nonobstructing 2-3 mm stones bilaterally in the kidneys. No ureteral stone or obstructive uropathy. Stomach and bowel: Acute diverticulitis of the jejunum. A few bubbles of extraluminal gas along the medial aspect of the inflamed segment (series 201 image 80). No subdiaphragmatic air. No abscess. Umbilical hernia containing a knuckle of nonobstructed small bowel. Colonic diverticulosis without acute diverticulitis. PELVIS: Appendix: No findings to suggest acute appendicitis. Bladder: Unremarkable. Reproductive: Unremarkable as visualized. ABDOMEN and PELVIS: Intraperitoneal space: See above. Bones/joints: Degenerative changes in the lumbar spine. Soft tissues: See above. Vasculature: Unremarkable. Lymph nodes: Unremarkable. IMPRESSION: 1. Acute diverticulitis of the jejunum. A few bubbles of extraluminal gas along the medial aspect of the inflamed segment (series 201 image 80). No subdiaphragmatic air. No abscess. 2. Umbilical hernia containing a knuckle of nonobstructed small bowel. <MYCVCSECTION> Communications: 01/16/25 05:47 Verify Receipt Verified receipt with collection card clerk Eduardo report given to Dr. Huang on 01/16 05:47 (-04:00)
[2025-01-16 05:27] VITALS: BP 137/67
[2025-01-16] MEDS: HYDROcodone/APAP 5-325MG 1 EACH TAB PO STA (06:03)
== END 2025-01-16 06:10 | disposition home or self-care (01) ==
LOC: EC 02:37
DX: K57.12 Diverticulitis of small intestine without perforation or abscess without bleeding (principal); K42.9 Umbilical hernia without obstruction or gangrene; Z87.891 Personal history of nicotine dependence; Z88.1 Allergy status to other antibiotic agents; Z88.5 Allergy status to narcotic agent
CPT/HCPCS: 36415; 74176; 80053; 82150; 83690; 85025; 99284